=== PATIENT | male | born 1995 | race Caucasian/White ===

== ENCOUNTER → 2017-07-16 | Outpatient (CLI) | payer BC, SELFPAY | PROVIDERS: Family Provider Family Medicine; Visit Provider Family Medicine | DX: M79.672 Pain in left foot (principal); M25.572 Pain in left ankle and joints of left foot | CPT/HCPCS: 73610; 73630 ==

== ENCOUNTER → 2019-08-19 16:16 | Outpatient (CLI) | payer OTHER, BC, SELFPAY ==
--- NOTE | 2019-08-19 16:25 | XR_ITS ---
PROCEDURE: XR MULTIPLE SPINE 6+V CLINICAL INDICATION: LOW BACK PAIN Upper and lower back pain COMPARISON: No exams were available for comparison FINDINGS: AP and lateral views of the thoracic spine show minimal thoracic curvature convex right. No fracture or dislocation. No lytic or blastic change. Five views of the lumbar spine show minimal lumbar curvature convex left with mild facet arthritic changes at L5-S1. The disc spaces are well preserved. No acute fracture or dislocation. IMPRESSION: Mild thoracolumbar scoliosis with mild facet arthritic change at L5-S1 Dictated by: Servando Timmons MD 08/19/2019 17:42 Electronically signed by Servando Timmons MD in [place] 08/19/2019 17:42
== END ==
PROVIDERS: PCP Family Medicine; Visit Provider Family Medicine
DX: M54.5 Low back pain (principal); M54.6 Pain in thoracic spine
CPT/HCPCS: 72084

== ENCOUNTER → 2021-06-26 16:53 | Outpatient (CLI) | payer OTHER, SELFPAY | PROVIDERS: Visit Provider Nurse Practitioner | DX: U07.1 COVID-19 (principal) | CPT/HCPCS: C9803; U0003; U0005 ==

== ENCOUNTER 2021-08-23 15:04 | Emergency (ER) | payer OTHER, SELFPAY ==
--- NOTE | 2021-08-23 15:10 | XR_ITS ---
PROCEDURE INFORMATION: Exam: XR Left Wrist Exam date and time: 08/23/2021 3:10 PM Age: 26 years old Clinical indication: Finger(s); Left; Patient HX: Lt thum pain TECHNIQUE: Imaging protocol: XR Left wrist. Views: 3 or more views. COMPARISON: No relevant prior studies available. FINDINGS: Bones/joints: The distal radius and ulna are intact and normally aligned. No carpal fracture is seen. Carpal alignment is normal. No inflammatory erosions are seen. The visualized metacarpals are intact. Soft tissues: There are no abnormal soft tissue calcifications. Soft tissue swelling is noted. IMPRESSION: No acute radiographic abnormality of the wrist.
--- NOTE | 2021-08-23 15:10 | XR_ITS ---
PROCEDURE INFORMATION: Exam: XR Left Hand Exam date and time: 08/23/2021 3:10 PM Age: 26 years old Clinical indication: Finger(s) and other: Thumb; Left; Patient HX: Lt thumb pain TECHNIQUE: Imaging protocol: XR Left hand. Views: 3 or more views. COMPARISON: No relevant prior studies available. FINDINGS: Bones/joints: Alignment is normal. Carpals, metacarpals, and phalanges are intact. No fracture is visualized. No destructive osseous lesions are seen. No inflammatory osseous erosions are visualized. Soft tissues: There are no abnormal soft tissue calcifications. Soft tissue swelling at the base of the thumb. IMPRESSION: No acute radiographic abnormality of the hand.
[2021-08-23 15:19] VITALS: BP 116/56; PULSE 78; RESP 18; TEMP 36.9; O2SAT 98; BMI 19.1
--- NOTE | 2021-08-23 15:29 | HMH.EDUTC ---
[facility] [place] Disposition Clinical Impression: Crushing injury of left wrist Qualifiers: Encounter type: initial encounter Qualified Code(s): S67.32XA - Crushing injury of left wrist, initial encounter Crushing injury of left hand Qualifiers: Encounter type: initial encounter Qualified Code(s): S67.22XA - Crushing injury of left hand, initial encounter Disposition: Home, Self-Care Condition on Discharge: Good Instructions: DI for Crush Injury Additional Instructions: Rest the extremity, apply ice for 15 minutes as tolerated three or four times per day, Wear the delisa wrap for compression, Elevate the extremity as tolerated while you are resting. Take ibuprofen for pain. I sent in a prescription to your pharmacy. Follow up with Dr. Springer (orthopedics). I put in a referral but you need to call his office and schedule an appointment. Make sure you follow up, these types of injuries can be more serious than they may seem at first. If there is a hidden fracture in your wrist or hand, you could develop nerve damage and difficulty using your hand in the future. Follow up with your regular doctor. GO TO THE ER FOR ANY WORSENING SYMPTOMS Prescriptions: Ibuprofen [Ibuprofen 800mg Tablet] 800 mg PO Q8HP PRN #30 tab PRN Reason: Moderate Pain Transmission Status: Received by [facility] Referrals: Will Caal MD [Primary Care Provider] - Samuel Springer MD [Staff Physician] - Forms: Work/School Release Time of Disposition: 17:08 Medical Decision Making - Medical Records Medical records reviewed: No: I reviewed the patient's medical records. - Ricci Inquiry Pt receiving controlled substance: No Vital Signs: 08/23/21 15:19 08/23/21 17:20 Temperature 98.5 F 98.5 F Temperature Source Oral Pulse Rate 78 Pulse Rate [Left] 78 Respiratory Rate 18 18 Blood Pressure 116/56 L Blood Pressure [Right Arm] 116/56 L Blood Pressure Mean [Right Arm] 76 02 Sat by Pulse Oximetry 98 - Radiology Data #1 Image(s): Hand Image Reviewed: Yes I reviewed the patient's radiology image, Yes I have reviewed radiologist's interpretation Preliminary Findings: Normal/NAD, No Fracture Seen PROCEDURE INFORMATION: Exam: XR Left Hand Exam date and time: 08/23/2021 3:10 PM Age: 26 years old Clinical indication: Finger(s) and other: Thumb; Left; Patient HX: Lt thumb pain TECHNIQUE: Imaging protocol: XR Left hand. Views: 3 or more views. COMPARISON: No relevant prior studies available. FINDINGS: Bones/joints: Alignment is normal. Carpals, metacarpals, and phalanges are intact. No fracture is visualized. No destructive osseous lesions are seen. No inflammatory osseous erosions are visualized. Soft tissues: There are no abnormal soft tissue calcifications. Soft tissue swelling at the base of the thumb. IMPRESSION: No acute radiographic abnormality of the hand. [facility] [place] HPI - General Stated complaint: L wrist injury Time Seen by Provider: 08/23/21 15:25 Mode of Arrival: Ambulatory Source of Information: Patient Limitations: No Limitations Description of Symptoms (Recalled from Triage Doc. by RN): pt states he crushed his L hand/wrist with a tire rim. pt c/o L hand/wrist pain. HEENT Symptoms (Recalled from RN notes): No Resp Symptoms (Recalled from RN notes): No Skin Symptoms (Recalled from RN notes): No MS Symptoms (Recalled from RN notes): Yes (L hand/wrist pain) Functional Status (Recalled from RN notes): wnl - History of Present Illness Provider Complaint: He states that an approximately 50 pound rim came down on his left hand and wrist while at work today. He is having pain and swelling of his left hand and wrist that starts just above the wrist and goes to just past the mid-hand. He states that he has worsening pain when he tries to bend or straighten his wrist. He denies any other injury. - Relat
[2021-08-23 17:20] VITALS: BP 116/56; PULSE 78; RESP 18; TEMP 36.9
== END 2021-08-23 17:23 | disposition home or self-care (01) ==
PROVIDERS: Emergency Provider Nurse Practitioner Family; PCP Family Medicine
DX: S67.32XA Crushing injury of left wrist, initial encounter (principal); S67.22XA Crushing injury of left hand, initial encounter; W31.89XA Contact with other specified machinery, initial encounter; Y92.63 Factory as the place of occurrence of the external cause; Y99.0 Civilian activity done for income or pay
CPT/HCPCS: 29125; 73110; 73130; 99202; G0463

== ENCOUNTER 2022-09-10 13:23 | Emergency (ER) | payer SELFPAY ==
[2022-09-10 13:30] VITALS: BP 106/72; PULSE 121; RESP 20; TEMP 37.2; O2SAT 97
--- NOTE | 2022-09-10 14:18 | EXP.UTC ---
Discharge Plan Disposition Patient Disposition: Still a Patient Condition: Fair Prescriptions Prescriptions: No Action ibuprofen 800 MG tablet 800 mg PO Q8HP PRN (Reason: Moderate Pain) Qty: 30 0RF Referrals Follow up/Referrals: Will Caal MD [Primary Care Provider] - See instructions Clinical Impressions Clinical Impression: Abdominal pain Discharge ED Provider: David Long [facility] [place] H[place] General Stated complaint: vomiting,diarrhea,with blood Mode of Arrival: Ambulatory Source of Information: Patient Limitations: No Limitations Time Seen by Provider: 09/10/22 14:24 Description of Symptoms (Recalled from Triage Doc. by RN): PATIENT C/O VOMITING, DIARRHEA AND UPPER/LOWER ABDOMINAL PAIN THAT STARTED THIS MORNING. HE STATES THE FIRST EPISODE OF VOMITING HE HAD WAS CLEAR, BUT SINCE THEN HE DESCRIBES HIS EMESIS LOOKING AND SMELLING LIKE DIARRHEA AND ALSO NOTED BLOOD IN IT. HE STATES THE ABDOMINAL PAIN GETS WORSE WITH VOMITING. PATIENT ALSO REPORTS SOA AND CHEST TIGHTENING SINCE SATURDAY THAT STARTED AFTER THE [id number] AT HIS WORK WERE EMPTIED AND CAUSED A STRONG URINE/CHEMICAL ODOR IN THE AIR. HEENT Symptoms (Recalled from RN notes): No Resp Symptoms (Recalled from RN notes): Yes Skin Symptoms (Recalled from RN notes): No MS Symptoms (Recalled from RN notes): No Functional Status (Recalled from RN notes): WNL History of Present Illness Provider Complaint: He is here with complaints of abdominal pain, n/v/d. His symptoms began yesterday evening. He states he is having upper abdominal pain. He has had multiple episodes of vomiting. He states that his vomit looks like it has stool in it. Related Data Previous Rx's Medication Instructions Recorded ibuprofen 800 mg tablet 800 mg PO Q8HP PRN Moderate Pain 08/23/21 #30 tabs Allergies Allergy/AdvReac Type Severity Reaction Status Date / Time No Known Allergies Allergy Verified 04/17/21 15:35 Worker's Comp Is this a Worker's Comp case?: No [facility] Disclaimer: The information contained in this section may have been updated after the patient was seen, as this information can be updated by other users. Medical History Asthma Atrial fibrillation Surgical History History of cardiac radiofrequency ablation Social History Smoking Status: Current every day smoker alcohol intake: current current occupational status: employed Travel in the last 8 weeks: None ROS Obtained: Yes All systems reviewed & no additional complaints except as documented Constitutional Constitutional: Denies chills, Denies fever(s) and Reports poor appetite ENT Ears, Nose, Mouth, and Throat: Denies dizziness and Denies sore throat Cardiovascular Cardiovascular: Denies dyspnea Respiratory Respiratory: Denies chest congestion, Denies cough and Denies dyspnea Gastrointestinal Gastrointestingal: Reports as per HPI Genitourinary Male Genitourinary: Denies hematuria, Denies urinary frequency, Denies urinary hesitancy, Denies urinary incontinence and Denies urinary urgency Musculoskeletal Musculoskeletal: Denies arthralgias Integumentary/Breasts Skin/Breast: Denies rash Neurologic Neurologic: Denies dizziness Physical Exam General General appearance: alert and in no apparent distress Head Head exam: atraumatic and normocephalic Eye Eye exam: Present normal appearance, PERRL and EOMI ENT ENT exam: Present normal exam, normal oropharynx, mucous membranes moist, TM's normal bilaterally and normal external ear exam Neck Neck exam: Present normal inspection, full ROM and trachea midline; Absent tenderness, meningismus or lymphadenopathy Chest Chest inspection: Present normal inspection and symmetric chest wall rise; Absent tenderness, rash or abscess Respiratory Respiratory exam: Present normal lung sounds bilate
[2022-09-10 14:29] LABS: Microscopic, Urine URINE MICROSCOPIC (MICROSCOPIC)
[2022-09-10 14:31] LABS: Appearance,Urine CLEAR (Clear); Blood, Urine Negative (Negative); Color,Urine YELLOW (Yellow); Glucose,Urine (UA) Negative (Negative); Ketones,Urine Negative (Negative); Leukocyte Esterase,Urine Negative (Negative); Nitrate,Urine Negative (Negative); PH,Urine 5.5 (5.0-8.5); Protein,Urine TRACE (Negative); Specific Gravity, Urine >= 1.030 (1.005-1.030); Urobilinogen,Urine 0.2 EU/dl (0.2)
[2022-09-10 14:35] LABS: Chloride 107 mmol/L (98-107); Potassium 4.2 mmoL/L (3.5-5.1); Sodium 141 mmol/L (136-145)
[2022-09-10 14:36] VITALS: BP 128/72; PULSE 94; RESP 17; TEMP 36.8; O2SAT 96
[2022-09-10 14:38] LABS: Alanine Aminotransferase 19 U/L (12-78); Albumin Level 4.9 g/dl (3.5-5.0); Albumin/Globulin Ratio 1.4 (1.1-1.8); Alkaline Phosphatase 55 U/L (38-126); Anion Gap 13.2 mEq/L (5-15); Aspartate Amino Transferase 25 U/L (17-59); Bilirubin,Total 0.8 mg/dl (0.2-1.3); Blood Urea Nitrogen 20 mg/dl (9-20); Calcium 9.3 mg/dl (8.4-10.2); Carbon Dioxide 25 mmol/L (22.0-30.0); Creatinine Clearance Estimated 105 mL/min (50-200); Estimated Glomerular Filt Rate 90 ml/min (>60); GFR (African American) 108 ML/MIN (>60); Globulin 3.6 g/dL (1.3-3.2); Glucose 128 mg/dl (74-100); Lipase 88 U/L (23-300); Total Protein,Serum 8.5 g/dl (6.3-8.2)
[2022-09-10 15:08] LABS: Bacteria,Urine Trace /lpf; Bilirubin,Urine Negative (Negative); Mucus,Urine 2+ /lpf; Squamous Epithelial Cell,Urine Occasional #/hpf (0-5)
[2022-09-10 15:11] VITALS: BP 122/79; PULSE 88; RESP 17; TEMP 36.8; O2SAT 98
--- NOTE | 2022-09-10 15:12 | HMH.EDGENADL ---
Discharge Plan Disposition Patient Disposition: Still a Patient Condition: Fair Prescriptions Prescriptions: New ondansetron 4 mg tablet,disintegrating 4 mg PO Q6H PRN (Reason: nausea and vomiting) Qty: 20 0RF Referrals Follow up/Referrals: Will Caal MD [Primary Care Provider] - See instructions Activity Restrictions/Add. Instructions Additional Instructions/Restrictions: Today had nausea vomiting diarrhea. Your dark-colored vomit and blood-tinged vomit at the end of your vomiting episode is consistent with a Cande-Liriano tear and your abdominal exam was benign. I am not concerned about a surgical emergency at the moment. Specifically not concerned about a bowel obstruction. You may take [id number] loperamide as needed for diarrhea. I have sent in a prescription of Zofran for your nausea. If you have an inability to tolerate anything by mouth at home or you have worsening abdominal pain over the next 12 to 24 hours please return to the emergency department Clinical Impressions Clinical Impression: Abdominal pain, Nausea vomiting and diarrhea, Cande-Liriano tear, Abdominal pain, epigastric Instructions Patient Instructions: DI for Diarrhea and Traveler's Diarrhea -- Adult, DI for Diarrhea and Traveler's Diarrhea -- Child, DI for Nausea -- Adult, DI for Nausea -- Child Discharge ED Provider: David Long General Adult HPI General Chief complaint: Nausea/Vomiting/Diarrhea Stated complaint: vomiting,diarrhea,with blood Time Seen by Provider: 09/10/22 14:24 Mode of Arrival: Ambulatory Source of Information: Patient Limitations: No Limitations Description of Symptoms (Recalled from ER Triage Doc. by RN): 27 M presents from [facility] for n/v/d, hemoptysis, dizziness, and generalized abdominal pain/cramping. Patient reports symptoms began yesterday; however, associates some of this dizziness from working around [id number] at his job last week. History of Present Illness HPI narrative: Patient is a 27-year-old male without any significant history presenting today with nausea vomiting and diarrhea for 24 hours. Has had some lightheadedness recently but his nausea vomiting diarrhea is only going on for 24 hours. After multiple episodes of vomiting had some dark-colored emesis and some blood-tinged emesis. This did not occur at the beginning of a vomiting episode but only at the end. He had some epigastric discomfort but no significant lower abdominal discomfort. He was seen in the urgent treatment clinic and had his work-up initiated including a lipase. IV fluids and nausea medication have been given. The time I evaluated this patient he would dramatically improved stated nausea is feeling much better is also feeling better from a lightheadedness standpoint. States his abdominal pain other than some mild epigastric tenderness has improved. Still has no desire to have a bowel movement but his nausea is dramatically improved. He is been sipping on 7 up and has been p.o. challenging himself prior to my evaluation and has been tolerating p.o. without difficulty. States he feels much better Related Data Previous Rx's Medication Instructions Recorded ondansetron 4 mg disintegrating 4 mg PO Q6H PRN nausea and 09/10/22 tablet vomiting #20 tabs Allergies Allergy/AdvReac Type Severity Reaction Status Date / Time No Known Allergies Allergy Verified 04/17/21 15:35 [facility] Disclaimer: The information contained in this section may have been updated after the patient was seen, as this information can be updated by other users. Medical History Asthma Atrial fibrillation Surgical History History of cardiac radiofrequency ablation Social History Smoking Status: Current some day smoker alcohol intake: current current occupational status: employ
[2022-09-10 15:50] LABS: Basophils % 0.2 % (0.1-2.0); Eosinophils # 0.1 K/mm3 (0.0-0.4); Eosinophils % 0.4 % (0.1-12.0); Hematocrit 45.5 % (42.0-52.0); Hemoglobin 15.4 g/dL (14.1-18.0); Lymphocytes # 0.4 K/mm3 (0.7-4.5); Lymphocytes % 3.7 % (10-50); Mean Corpuscular HGB Conc 33.9 g/dL (31.8-35.4); Mean Corpuscular Hemoglobin 30.1 pg (27.0-31.2); Mean Corpuscular Volume 88.9 fl (80-94); Mean Platelet Volume 8.4 fl (7.4-10.4); Monocytes # 0.6 K/mm3 (0.1-1.0); Monocytes % 5.5 % (1.7-9.3); Neutrophils # 9.7 K/mm3 (1.8-7.8); Neutrophils % 90.2 % (37.0-80.0); Platelet Count 264 K/mm3 (142-424); Red Blood Count 5.11 M/mm3 (4.60-6.20); Red Cell Distribution Width 13.6 % (11.5-17.5); White Blood Count 10.7 K/mm3 (4.8-10.8)
[2022-09-10 16:00] LABS: MANUAL DIFFERENTIAL MANUAL DIFFERENTIAL (MANUAL DIFF)
[2022-09-10 16:18] LABS: Lymphocytes % 6 % (10-50); Monocytes % 2 % (2-9); Neutrophils % 92 % (42-76); Platelet Estimate Normal; RBC Morphology Normal; Total Cells Counted 100
== END 2022-09-10 15:19 | disposition still patient (30) ==
LOC: UTC 13:27 → ER 14:15
PROVIDERS: Student in an Organized Health Care Education/Training Program; Emergency Provider Nurse Practitioner Family; PCP Family Medicine
DX: R10.13 Epigastric pain (principal); R11.2 Nausea with vomiting, unspecified; K22.6 Gastro-esophageal laceration-hemorrhage syndrome; I48.91 Unspecified atrial fibrillation; J45.909 Unspecified asthma, uncomplicated; F17.210 Nicotine dependence, cigarettes, uncomplicated
CPT/HCPCS: 80053; 81001; 83690; 85007; 85025; 96361; 96374; 96375; 99285; J2405

== ENCOUNTER 2023-04-26 04:52 | Day surgery (SDC) | payer SELFPAY ==
[2023-04-26] VITALS (19 sets, daily range): BP systolic 101–135; BP diastolic 53–85; PULSE 55–86; RESP 12–19; TEMP 36.2–43; O2SAT 96–100; BMI 20.2
--- NOTE | 2023-04-26 05:05 | ECG_ITS ---
APPROVED REPORT Exam: Resting ECG HR:55 bpm ECG Measurements Heart Rate 55 AXES LA 148 P 15 QRSd 112 QRS 82 QT 384 T 50 QTc 372 Conclusion SINUS BRADYCARDIA POSSIBLE RIGHT VENTRICULAR CONDUCTION DELAY [RSR (QR) IN V1/V2] ST ELEVATION, PROBABLY EARLY REPOLARIZATION [ST ELEVATION WITH NORMALLY INFLECTED T-WAVE] BORDERLINE ECG UNCONFIRMED REPORT Electronically signed by : Davy Sam MD 04/27/2023 07:59:06
--- NOTE | 2023-04-26 05:13 | XR_ITS ---
PROCEDURE INFORMATION: Exam: XR Chest Exam date and time: 04/26/2023 5:42 AM Age: 28 years old Clinical indication: Pain; Radiating; Additional info: Cp, vomiting TECHNIQUE: Imaging protocol: Radiologic exam of the chest. Views: 1 view. COMPARISON: CR XR MULTIPLE SPINE 6+V 08/19/2019 4:28 PM FINDINGS: Lungs: Unremarkable. No consolidation. Pleural spaces: Unremarkable. No pleural effusion. No pneumothorax. Heart/Mediastinum: Unremarkable. No cardiomegaly. Bones/joints: There is a dextroconvex curvature of the thoracic spine. IMPRESSION: Clear lungs.
--- NOTE | 2023-04-26 05:17 | PC.NURSE ---
called and informed rad of new chest xray order.
--- NOTE | 2023-04-26 05:24 | CT_ITS ---
PROCEDURE INFORMATION: Exam: CT Abdomen And Pelvis With Contrast Exam date and time: 04/26/2023 5:43 AM Age: 28 years old Clinical indication: Abdominal pain; Epigastric; Additional info: Ruq pain, vomiting, back pain radiating around to front TECHNIQUE: Imaging protocol: Computed tomography of the abdomen and pelvis with contrast. Radiation optimization: All CT scans at this facility use at least one of these dose optimization techniques: automated exposure control; mA and/or kV adjustment per patient size (includes targeted exams where dose is matched to clinical indication); or iterative reconstruction. Contrast material: ISOVUE; Contrast volume: 75 ml; Contrast route: IV; REPORTING DATA: Count of CT and Cardiac NM exams in prior 12 months: This patient has received 0 known CTs and 0 known cardiac nuclear medicine studies in the 12 months prior to the current study. COMPARISON: CR XR CHEST PORTABLE 04/26/2023 5:42 AM FINDINGS: Liver: Normal. No mass. Gallbladder and bile ducts: Calcified stones are noted within the partially contracted gallbladder. Pancreas: Normal. No ductal dilation. Spleen: Normal. No splenomegaly. Adrenal glands: Normal. No mass. Kidneys and ureters: The kidneys enhance symmetrically and there is no evidence for hydronephrosis. Stomach and bowel: There is moderate stool noted in the colon. Appendix: No evidence of appendicitis. Intraperitoneal space: Unremarkable. No free air. No significant fluid collection. Vasculature: Unremarkable. No abdominal aortic aneurysm. Lymph nodes: Unremarkable. No enlarged lymph nodes. Urinary bladder: The urinary bladder is contracted. Reproductive: Unremarkable as visualized. Bones/joints: Unremarkable. No acute fracture. Soft tissues: Unremarkable. IMPRESSION: Cholelithiasis. Constipation.
--- NOTE | 2023-04-26 05:25 | HMH.EDGENADL ---
Discharge Plan Disposition Patient Disposition: Still a Patient Condition: Fair Clinical Impressions Clinical Impression: Abdominal pain, acute, right upper quadrant, Acute calculous cholecystitis Discharge ED Provider: Fady Santos General Adult HPI <Abelardo Van MD - Last Filed: 04/26/23 07:26> General Chief complaint: Chest Pain Stated complaint: Difficulty breathing,vomiting blood,pain in ribs Time Seen by Provider: 04/26/23 04:56 Mode of Arrival: Ambulatory Source of Information: Patient Limitations: No Limitations Description of Symptoms (Recalled from ER Triage Doc. by RN): Patient presents with the chief complaint of midsternal chest pain that is worse with breathing, radiates to bilateral flanks, and through mid-back starting at 11pm. Patient reports emesis x 2, which he describes as because of pain . Currently rates his pain at 8/10. History of Present Illness HPI narrative: 28-year-old male history of A-fib status post distant ablation, no other reported past medical history, presents with severe chest/epigastric/right upper quadrant pain since last night with associated vomiting. He reports he sees some streaks of blood in the vomit. No reported fever at home. He reports that he has had reflux in the past but his symptoms today were not improved with antiacids at home. Denies any changes in bowel function. No reported prior abdominal surgery. Related Data Home Medications Medication Instructions Recorded Confirmed No Known Home Medications 04/26/23 04/26/23 Allergies Allergy/AdvReac Type Severity Reaction Status Date / Time No Known Allergies Allergy Verified 04/17/21 15:35 PFSH <Abelardo Van MD - Last Filed: 04/26/23 07:26> [facility] Disclaimer: The information contained in this section may have been updated after the patient was seen, as this information can be updated by other users. Medical History Asthma Atrial fibrillation Surgical History History of cardiac radiofrequency ablation Social History Smoking Status: Smoker, status unknown alcohol intake: current current occupational status: employed Travel in the last 8 weeks: None <Abelardo Van MD - Last Filed: 04/26/23 07:26> ROS Obtained: Yes All systems reviewed & no additional complaints except as documented Physical Exam <Abelardo Van MD - Last Filed: 04/26/23 07:26> General General appearance: alert and in distress Head Head exam: atraumatic and normocephalic Eye Eye exam: Present normal appearance, PERRL and EOMI ENT ENT exam: Present normal oropharynx and normal external ear exam Neck Neck exam: Present normal inspection and full ROM Chest Chest inspection: Present normal inspection and symmetric chest wall rise; Absent tenderness Respiratory Respiratory exam: Present normal lung sounds bilaterally; Absent respiratory distress Cardiovascular Cardiovascular exam: Present regular rate and normal rhythm Abdominal Exam Abdominal exam: Present soft and tenderness (Epigastric, right upper quadrant); Absent distention or guarding Extremities Exam Extremities exam: Present normal inspection; Absent edema or joint swelling Back Exam Back exam: Present normal inspection; Absent tenderness Neurological Exam Neurological exam: Present alert and oriented X3; Absent motor sensory deficit Psychiatric Psychiatric exam: Present normal affect and normal mood Skin Skin exam: Present warm, dry and normal color Lymphatic Lymphatic Findings: no adenopathy Medical Decision Making <Abelardo Van MD - Last Filed: 04/26/23 07:26> Medical Records Medical records reviewed: Yes I reviewed the patient's medical records. Ricci Inquiry Pt receiving controlled substance: No Ricci was queried for this patient: No Vital Signs: 04/26/23 04:54 04/26/23 05:10 04/26/23
--- NOTE | 2023-04-26 05:26 | PC.NURSE ---
radiology in with patient.
[2023-04-26 05:31] LABS: Basophils % 0.5 % (0.1-2.0); Eosinophils # 0.1 K/mm3 (0.0-0.4); Eosinophils % 1.3 % (0.1-12.0); Hematocrit 45.1 % (42.0-52.0); Hemoglobin 14.5 g/dL (14.1-18.0); Lymphocytes # 1.8 K/mm3 (0.7-4.5); Lymphocytes % 18.3 % (10-50); Mean Corpuscular HGB Conc 32.2 g/dL (31.8-35.4); Mean Corpuscular Hemoglobin 29.9 pg (27.0-31.2); Mean Corpuscular Volume 92.8 fl (80-94); Monocytes # 0.5 K/mm3 (0.1-1.0); Monocytes % 5.2 % (1.7-9.3); Neutrophils # 7.4 K/mm3 (1.8-7.8); Neutrophils % 74.7 % (37.0-80.0); Platelet Count 249 K/mm3 (142-424); Red Blood Count 4.86 M/mm3 (4.60-6.20); Red Cell Distribution Width 12.9 % (11.5-17.5)
[2023-04-26 05:33] LABS: Chloride 103 mmol/L (98-107); Potassium 3.6 mmoL/L (3.5-5.1); Sodium 139 mmol/L (136-145)
[2023-04-26 05:35] LABS: Blood Urea Nitrogen 11 mg/dl (9-20); Creatinine Clearance Estimated 117 mL/min (50-200); Estimated Glomerular Filt Rate 100 ml/min (>60); GFR (African American) 122 ML/MIN (>60)
[2023-04-26 05:36] LABS: Alanine Aminotransferase 16 U/L (12-78); Albumin Level 4.5 g/dl (3.5-5.0); Albumin/Globulin Ratio 1.4 (1.1-1.8); Alkaline Phosphatase 53 U/L (38-126); Anion Gap 9.6 mEq/L (5-15); Aspartate Amino Transferase 24 U/L (17-59); Bilirubin,Total 0.4 mg/dl (0.2-1.3); Calcium 9.4 mg/dl (8.4-10.2); Carbon Dioxide 30 mmol/L (22.0-30.0); Globulin 3.3 g/dL (1.3-3.2); Glucose 119 mg/dl (74-100); Lipase 59 U/L (23-300); Total Protein,Serum 7.8 g/dl (6.3-8.2)
--- NOTE | 2023-04-26 06:16 | PC.NURSE ---
paged dr dubose to discuss poc
--- NOTE | 2023-04-26 06:24 | US_ITS ---
FINAL REPORT CLINICAL HISTORY: RUQ pain, n/v FINDINGS: Sonographic images of the right upper quadrant were obtained. Limited images of the pancreas are within normal limits. The liver has an unremarkable appearance. There are multiple gallstones in the gallbladder. There is mild gallbladder wall thickening measuring up to 4 mm. There is no evidence of biliary ductal dilatation.The common duct measures 4mm. Limited images of the right kidney are unremarkable. IMPRESSION: Multiple gallstones with mild gallbladder wall thickening. Reviewed, Interpreted and Dictated by Victoriano Kern III, MD Transcribed by Shauna Perez Authenticated and [facility]
--- NOTE | 2023-04-26 06:53 | EXP.SURG.CON ---
History of Present Illness *Admission Date: 04/26/23 *Reason for visit:: Chest pain *History of present illness: Patient is a 28-year-old male who presented to the emergency department after he had onset of mid substernal pain and epigastric radiating to bilateral flanks occurring approximately 11 PM on 02/23/2023. He did have reported emesis. He has a history of asthma, atrial fibrillation, cardiac radiofrequency ablation. Work-up in the emergency department revealed normal white blood cell count and differential. He has normal electrolytes and liver function test with normal lipase. He had a CT scan of the abdomen and pelvis performed which revealed findings of gallstones and constipation. Surgery was contacted at that time. He had significant ongoing symptoms refractory to narcotic and antiemetic. Recommendations were to proceed with gallbladder ultrasound to evaluate for potential sonographic acute cholecystitis. Gallbladder ultrasound reveals normal common bile duct with multiple gallstones and mild gallbladder wall thickening. Patient's symptoms persisted. [facility] Disclaimer: The information contained in this section may have been updated after the patient was seen, as this information can be updated by other users. Medical History Asthma Atrial fibrillation Surgical History History of cardiac radiofrequency ablation Social History Smoking Status: Smoker, status unknown alcohol intake: current current occupational status: employed Travel in the last 8 weeks: None Meds Home Medications and Allergies Home Medications Medication Instructions Recorded Confirmed Type No Known Home Medications 04/26/23 04/26/23 History New Prescriptions to Start Prescriptions: Allergies Allergy/AdvReac Type Severity Reaction Status Date / Time No Known Allergies Allergy Verified 04/17/21 15:35 Exam (Inpt) Vital signs and Labs for Last 24 Hours: Temp Pulse Resp BP Pulse Ox O2 Del Method 97.6 F 55 L 18 107/72 L 100 Room Air 04/26/23 04:54 04/26/23 05:10 04/26/23 04:54 04/26/23 04:54 04/26/23 04:54 04/26/23 04:54 Laboratory Results - last 24 hr 04/26/23 05:00: WBC 10.0, RBC 4.86, Hgb 14.5, Hct 45.1, MCV 92.8, MCH 29.9, MCHC 32.2, RDW 12.9, Plt Count 249, MPV 8.0, Neut % (Auto) 74.7, Lymph % (Auto) 18.3, Davie % (Auto) 5.2, Eos % (Auto) 1.3, Baso % (Auto) 0.5, Neut # (Auto) 7.4, Lymph # (Auto) 1.8, Davie # (Auto) 0.5, Eos # (Auto) 0.1, Baso # (Auto) 0.0, Sodium 139, Potassium 3.6, Chloride 103, Carbon Dioxide 30, Anion Gap 9.6, BUN 11, Creatinine 0.90, Estimated Creat Clear 117, Estimated GFR 100, Est GFR ( Amer) 122, Glucose 119 H, Calcium 9.4, Total Bilirubin 0.4, AST 24, ALT 16, Alkaline Phosphatase 53, Total Protein 7.8, Albumin 4.5, Globulin 3.3 H, Albumin/Globulin Ratio 1.4, Lipase 59 I & O for Labs for Last 24 Hours: Intake & Output 04/23/23 04/24/23 04/25/23 04/26/23 11:59 11:59 11:59 11:59 Weight 149 lb 9.6 oz Constitutional: no acute distress Comment:: Somewhat somnolent Head: Present normocephalic Respiratory: Present CTA bilaterally Cardiac: Present Reg Rate and Rhythm GI: Present soft Comments:: Tenderness in the right upper quadrant Rectal (male): Present deferred Results Labs 04/26/23 05:00 04/26/23 05:00 Labs: Laboratory Results - last 24 hr 04/26/23 05:00: WBC 10.0, RBC 4.86, Hgb 14.5, Hct 45.1, MCV 92.8, MCH 29.9, MCHC 32.2, RDW 12.9, Plt Count 249, MPV 8.0, Neut % (Auto) 74.7, Lymph % (Auto) 18.3, Davie % (Auto) 5.2, Eos % (Auto) 1.3, Baso % (Auto) 0.5, Neut # (Auto) 7.4, Lymph # (Auto) 1.8, Davie # (Auto) 0.5, Eos # (Auto) 0.1, Baso # (Auto) 0.0, Sodium 139, Potassium 3.6, Chloride 103, Carbon Dioxide 30, Anion Gap 9.6, BUN 11, Creatinine 0.90, Estimated Creat Clear 117, Est
--- NOTE | 2023-04-26 07:38 | PC.NURSE ---
Rounded on pt. Pt visitor provided with blanket. No other needs voiced. Updated on POC.
--- NOTE | 2023-04-26 08:20 | PC.NURSE ---
pt to u/s via wheelchair
--- NOTE | 2023-04-26 08:51 | PC.NURSE ---
Pt returned from u/s
--- NOTE | 2023-04-26 08:51 | PC.NURSE ---
pt return from u/s
--- NOTE | 2023-04-26 08:52 | PC.NURSE ---
Pt back to room. [employer] gave prelim to Dr. Santos.
--- NOTE | 2023-04-26 10:57 | PC.NURSE ---
Dr. Santos reports Dr. Denny states he will come down and see pt, Dr. Denny in ER previously to see pt but pt was in U/S at this time. Spoke with staff in pre-op states Dr. Denny is currently in a scope but stated to staff he would come down to see pt in ER after procedures are finished. 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 Dr. Santos to bs to speak with pt and significant other r/t POC. Pt and significant other now discussing options are supposed to let staff know if not wanting to stay for consult with Dr. Denny.
--- NOTE | 2023-04-26 11:35 | PC.NURSE ---
Dr. Denny at BS
--- NOTE | 2023-04-26 11:42 | PC.NURSE ---
Dr. Denny states he is going to try to take pt to the OR soon
--- NOTE | 2023-04-26 12:02 | PC.NURSE ---
Registration notified that pt is headed to surgery.
--- NOTE | 2023-04-26 12:55 | EXP.ANES.CKL ---
[facility] Disclaimer: The information contained in this section may have been updated after the patient was seen, as this information can be updated by other users. Medical History Asthma Atrial fibrillation Surgical History History of cardiac radiofrequency ablation Social History Smoking Status: Smoker, status unknown alcohol intake: current substance use type: denies use current occupational status: employed Travel in the last 8 weeks: None [facility] Anesthesia Checklist Patient Identification Patient Identification: Arm Band Structural Data Admitted From: Emergency Dept Planned Operative Procedure/s: Laparoscopic Cholecystectomy Consent for Planned Operative Procedure(s) Verified: Yes Verified Documents: Surgical Consent and History and Physical NPO Status Verified Time NPO: 00:00 Additional verifications Anesthesia Reactions: No Airway Assessment Mallampati Score:: Class II C-Spine Mobility Assessed: Yes TMJ Mobility Assessed: Yes Dentition: Good Dentition Neurological Assessment Level of Consciousness: Awake and Alert Anesthesia Plan Anesthesia Risk discussed: Yes Anesthesia Plan: Verified ASA Class: II Anesthesia Type: General Preoperative Comments Pre-Operative Comments: Pt very drowsy upon assessment most likely d/t morphine/phenergen given in ER. Pt's was able to answer all questions appropriately
--- NOTE | 2023-04-26 14:56 | EXP.OP.NOTE ---
Date of procedure: 04/26/23 Pre-op Diagnosis:: Cholecystitis Post-op Diagnosis:: Same Procedure performed:: Laparoscopic cholecystectomy Surgeon:: Victoriano Denny MD TOUR BUS DRIVER/GUIDE:: Roman Rose Anesthesia: MILTON Estimated blood loss (mL): 50 Clinical Note:: Patient is a 28-year-old male who presented to the emergency department after he had onset of mid substernal pain and epigastric radiating to bilateral flanks occurring approximately 11 PM on 02/23/2023. He did have reported emesis. He has a history of asthma, atrial fibrillation, cardiac radiofrequency ablation. Work-up in the emergency department revealed normal white blood cell count and differential. He has normal electrolytes and liver function test with normal lipase. He had a CT scan of the abdomen and pelvis performed which revealed findings of gallstones and constipation. Surgery was contacted at that time. He had significant ongoing symptoms refractory to narcotic and antiemetic with tenderness and pain in the right upper quadrant. Recommendations were to proceed with gallbladder ultrasound to evaluate for potential sonographic acute cholecystitis. Gallbladder ultrasound reveals normal common bile duct with multiple gallstones and mild gallbladder wall thickening. Patient's symptoms persisted and remained refractory to nonoperative management. Options were discussed with the patient. He wished to pursue cholecystectomy. Plan was made to proceed with laparoscopic with possibly open cholecystectomy. Nature and details of the proposed procedure and associated risks, including, but not limited to, bleeding, infection, anesthetic risk, damage to adjacent structures including bile ducts or bowel, were explained to the patient. He was agreeable to proceed with surgery. Operative findings:: He had a thickened gallbladder with multiple gallstones and some edema. Operative note:: Consent was obtained and patient was taken to the operating room. He was given a preoperative intravenous antibiotic. In the operating room he was placed in a supine position. General anesthesia was induced via endotracheal tube. Abdomen was prepped and draped in the standard surgical fashion. Subumbilical skin incision was made and while performing abdominal wall lift Veress needle was inserted. CO2 pneumoperitoneum was achieved to 15 mmHg. 11 mm optical trocar was inserted at the umbilicus. Intraperitoneal contents were visualized. He was positioned in reverse Trendelenburg left side down. A couple 5 mm trocars were inserted in the right upper abdomen. 10 mm trocar was inserted in the epigastrium. Liver was elevated and gallbladder was identified. Was grasped and retracted anteriorly and superiorly over the dome of the liver. The gallbladder appeared thickened with mild edema and some inflammation. Infundibulum of the gallbladder was retracted anterior laterally. Blunt dissection was carried out at the neck of the gallbladder bluntly incising the visceral peritoneum. This was incised laterally along the edge of the gallbladder using CHAMP ultrasonic harmonic roger. Blunt dissection was carried out ultimately isolating the cystic duct and cystic artery. Cystic artery was rather prominent. There were a few branching vessels. The cystic duct was isolated and multiply clipped and divided. Cystic artery, after further dissection, was carefully coagulated with CHAMP ultrasonic harmonic roger and divided. Gallbladder was dissected free from the liver in a retrograde fashion using CHAMP ultrasonic harmonic roger. Gallbladder was placed within an Endo Catch retrieval device and removed from the peritoneal cavity via the umbilical trocar site which required some sharp extension of the fascial incision for delivery. At this time there was some bleeding from the musculature of the abdominal wall at the umbilical trocar site. Pressure was held and 0 suture were placed within the fascia. Hopson blunt trocar was then inserted to
--- NOTE | 2023-04-26 14:59 | EXP.ANES.I ---
[facility] Anesthesia Record Part I Anesthesia Record I Intake, IV Amount: 1,000 Hydration: Adequate Estimated blood loss (mL): 10 Urine output (mL): 0 Blood Products used (#): none Blood Pressure: 135/73 SaO2: 96 Pulse Rate: 84 Airway Patency: Patent Respiratory Rate: 16 Temperature: 98.7 F Patient is:: Drowsy and Stable Stable to PACU at:: 14:55
[2023-04-29 14:30] VITALS: BP 117/75; PULSE 72; RESP 16; TEMP 37.1; O2SAT 96
--- NOTE | 2023-04-29 14:30 | P.PNANES_ITS ---
[facility] Anesthesia Record Part II Anesthesia Record Part II Discharge Time: 15:44 Destination: Surgical Day Care (OP Surgery) PACU nurse assessment reviewed?: Yes Patient Condition:: Good Anesthesia Complications:: None Swallowing reflex intact?: Yes Airway Patency: Patent Cyanosis?: No Blood Pressure: 117/75 SaO2: 96 Respiratory Rate: 16 Pulse Rate: 72 Temperature: 98.7 F Mental Status: Alert & Oriented Pain level:: 0 Nausea and/or vomitting:: None Intake, IV Amount: 0 Hydration: Adequate
== END 2023-04-26 16:40 | disposition home or self-care (01) ==
LOC: ER 07:40 → SDC 12:04
PROVIDERS: Emergency Medicine; Emergency Provider Emergency Medicine; PCP Family Medicine; Visit Provider Surgery
PROC: 0FT44ZZ Resection of Gallbladder, Percutaneous Endoscopic Approach (ICD-10-PCS; CPT 47562; principal; 2023-04-26 12:30)
DX: K80.12 Calculus of gallbladder with acute and chronic cholecystitis without obstruction (principal)
CPT/HCPCS: 47562; 71045; 74177; 76705; 80053; 83690; 85025; 93005; 96374; J2405; Q9967

== ENCOUNTER 2024-06-24 20:38 | Emergency (ER) | payer BC, SELFPAY ==
[2024-06-24] VITALS (7 sets, daily range): BP systolic 115–138; BP diastolic 61–80; PULSE 78–97; RESP 18–20; TEMP 36.8–36.9; O2SAT 94–99; BMI 21.7
--- NOTE | 2024-06-24 20:39 | ECG_ITS ---
APPROVED REPORT Exam: Resting ECG HR:79 bpm ECG Measurements Heart Rate 79 AXES AR 161 P 77 QRSd 102 QRS 81 QT 329 T 51 QTc 363 Conclusion SINUS RHYTHM POSSIBLE LEFT ATRIAL ENLARGEMENT [-0.1mV P-WAVE IN V1/V2] POSSIBLE RIGHT VENTRICULAR CONDUCTION DELAY [RSR (QR) IN V1/V2] Electronically signed by : LIZBETH ARIZMENDI, 06/24/2024 23:50:57
--- NOTE | 2024-06-24 20:54 | XR_ITS ---
PROCEDURE INFORMATION: Exam: XR Chest Exam date and time: 06/24/2024 8:54 PM Age: 29 years old Clinical indication: Pain; Chest pressure; Additional info: Cp vomiting TECHNIQUE: Imaging protocol: Radiologic exam of the chest. Views: 1 view. COMPARISON: CR XR CHEST PORTABLE 04/26/2023 5:42 AM FINDINGS: Lungs: Unremarkable. No consolidation. Pleural spaces: Unremarkable. No pleural effusion. No pneumothorax. Heart/Mediastinum: Unremarkable. No cardiomegaly. Bones/joints: Unremarkable. IMPRESSION: No acute findings.
--- NOTE | 2024-06-24 20:56 | PC.NURSE ---
xray done at bedside
[2024-06-24] MEDS: KETOROLAC 30MG/ML VIAL 15 MG IV (20:59)
[2024-06-24 21:13] LABS: Albumin Level 4.9 g/dl (3.5-5.0); Basophils # 0.1 K/mm3 (0-0.2); Basophils % 1.8 % (0.1-2.0); Chloride 106 mmol/L (98-107); Eosinophils # 0.2 K/mm3 (0.0-0.4); Eosinophils % 2.3 % (0.1-12.0); Hematocrit 49.5 % (42.0-52.0); Hemoglobin 16.5 g/dL (14.1-18.0); Lymphocytes # 0.9 K/mm3 (0.7-4.5); Lymphocytes % 12.1 % (10-50); Mean Corpuscular HGB Conc 33.4 g/dL (31.8-35.4); Mean Corpuscular Hemoglobin 30.7 pg (27.0-31.2); Mean Corpuscular Volume 91.9 fl (80-94); Mean Platelet Volume 7.4 fl (7.4-10.4); Monocytes # 0.5 K/mm3 (0.1-1.0); Monocytes % 6.5 % (1.7-9.3); Neutrophils % 77.3 % (37.0-80.0); Platelet Count 238 K/mm3 (142-424); Red Blood Count 5.39 M/mm3 (4.60-6.20); Red Cell Distribution Width 13.1 % (11.5-17.5); White Blood Count 7.8 K/mm3 (4.8-10.8)
[2024-06-24 21:14] LABS: Potassium 4.1 mmoL/L (3.5-5.1); Sodium 141 mmol/L (136-145)
--- NOTE | 2024-06-24 21:15 | ED_ITS ---
Discharge Plan Disposition Patient Disposition: Home, Self-Care Prescriptions Prescriptions: New ondansetron 4 mg tablet,disintegrating 4 mg PO Q6H PRN (Reason: nausea and vomiting) Qty: 10 0RF Referrals Follow up/Referrals: Will Caal MD [Primary Care Provider] - See instructions Activity Restrictions/Add. Instructions Additional Instructions/Restrictions: Call your family doctor to establish care for this visit to the emergency department and schedule follow-up within 48 hours to ensure improvement. If you have any worsening of your condition or any other concerning signs or symptoms, return to the emergency department or your primary care doctor for further evaluation. Clinical Impressions Clinical Impression: Nausea vomiting and diarrhea Print Language Print Language: Bulgarian Discharge ED Provider: Byron Moreno General Chief Complaint: Chest Pain Stated Complaint: chest pain Time Seen by Provider: 06/24/24 20:42 Mode of Arrival: Ambulatory Source of Information: Patient Limitations: No Limitations Description of Symptoms (Recalled from ER Triage Doc. by RN): Patient reports CP, SOA, N/V/D since 330pm today. Has taken zofran and an antidiarrhea medication. Desribes CP as dull ache and 5/10 pain. States it is substernal. History of Present Illness HPI narrative: Please note that above description of symptoms, in this electronic medical record under categorization of recalled from ER triage doctor by RN are reflective of an initial nursing assessment, however, is not reflective of my full history and physical exam that was personally taken and clarified. Consequentially, this preceding description of symptoms, which may include the patient's categorized chief complaint in the EMR, do not reflect my personal clinical impression, and the ultimate description of history of present illness and patient stated complaints should be deferred to this section of the note. Unless stated otherwise or congruent with this section of the note, additional signs, symptoms, or incongruence should be interpreted as inaccurate with my clinical impression. Related Data Previous Rx's ?Medication ?Instructions ?Recorded ondansetron 4 mg disintegrating 4 mg PO Q6H PRN nausea and 06/24/24 tablet vomiting #10 tabs Allergies Allergy/AdvReac Type Severity Reaction Status Date / Time No Known Allergies Allergy Verified 05/30/23 10:55 [facility] Disclaimer: The information contained in this section may have been updated after the patient was seen, as this information can be updated by other users. Medical History Asthma Atrial fibrillation Surgical History History of cardiac radiofrequency ablation History of laparoscopic cholecystectomy Social History Smoking Status: Never smoker alcohol intake: current alcohol intake frequency: a few times a month substance use type: denies use current occupational status: employed Travel in the last 8 weeks: None Other Medical History Have you received the Pneumonia Vaccine: No ROS Obtained: Yes All systems reviewed & no additional complaints except as documented Physical Exam General General appearance: alert and in no apparent distress Neck Neck exam: Present trachea midline Chest Chest inspection: Present normal inspection and symmetric chest wall rise Respiratory Respiratory exam: Present normal lung sounds bilaterally; Absent respiratory distress, wheezes, stridor, accessory muscle use or prolonged expiratory phase Cardiovascular Cardiovascular exam: Present regular rate, normal rhythm and other (Pulses equal and symmetric in upper and lower extremities) Extremities Exam Extremities exam: Absent edema Neurological Exam Neurological exam: Present alert, oriented X3 and CN II-XII intact Skin Skin exam: Present warm and dry; Absent cyanosis, diaphoresis or pallor HEART Score HEART Score HEART Score assessment performed?: Yes HEART Score: 0 Critical Care Critical Care Time Critical Care Time: No Medical Decision Making Medical Records Medical records reviewed: Yes I reviewed the patient's medical records. Ricci Inquiry Pt receiving controlled substance: No Ricci was queried for this patient: No Vital Signs Vital Signs: 06/24/24 20:38 06/24/24 20:46 06/24/24 21:00 Temperature 98.4 F Temperature Source Oral Pulse Rate 89 97 H Pulse Rate [Right Radial] 89 Respiratory Rate 18 Blood Pressure 138/61 Blood Pressure [Right Arm] 119/80 Blood Pressure Mean [Right Arm] 93 Blood Pressure Source [Right Arm] Automatic Cuff Blood Pressure Position [Right Arm] Supine 02 Sat by Pulse Oximetry 99 95 Oxygen Delivery Method Room Air 06/24/24 21:30 06/24/24 22:15 06/24/24 22:30 Temperature Temperature Source Pulse Rate 79 89 89 Pulse Rate [Right Radial] Respiratory Rate Blood Pressure 115/70 115/67 124/75 Blood Pressure [Right Arm] Blood Pressure Mean [Right Arm] Blood Pressure Source [Right Arm] Blood Pressure Position [Right Arm] 02 Sat by Pulse Oximetry 94 L 96 95 Oxygen Delivery Method Lab Data Labs: Lab Results 06/24/24 20:40: WBC 7.8, RBC 5.39, Hgb 16.5, Hct 49.5, MCV 91.9, MCH 30.7, MCHC 33.4, RDW 13.1, Plt Count 238, MPV 7.4, Neut % (Auto) 77.3, Lymph % (Auto) 12.1, Hill % (Auto) 6.5, Eos % (Auto) 2.3, Baso % (Auto) 1.8, Neut # (Auto) 6.0, Lymph # (Auto) 0.9, Hill # (Auto) 0.5, Eos # (Auto) 0.2, Baso # (Auto) 0.1, APTT 27.1, Sodium 141, Potassium 4.1, Chloride 106, Carbon Dioxide 28, Anion Gap 11.1, BUN 17, Creatinine 1.10, Estimated Creat Clear 102, Estimated GFR 79, Est GFR ( Amer) 96, Glucose 112 H, Calcium 9.6, Magnesium 2.1, Total Bilirubin 0.7, AST 36, ALT 20, Alkaline Phosphatase 53, Troponin I < 0.01, Total Protein 8.0, Albumin 4.9, Globulin 3.1, Albumin/Globulin Ratio 1.6, Lipase 64 06/24/24 20:40 06/24/24 20:40 Response Orders (Tests/Meds): ED MEDICATIONS Discontinued Medications Generic Name Dose Route Start Last Admin Trade Name Mikeq PRN Reason Stop Dose Admin Ketorolac Tromethamine 15 mg 06/24/24 20:54 06/24/24 20:59 Ketorolac 30mg/Ml Vial IV 06/24/24 20:55 15 mg ONCE ONE Administration ORDERS Category Date Time Status XR chest portable Stat Exams 06/24/24 20:54 Completed Complete Blood Count Auto Diff Stat Lab 06/24/24 20:40 Completed Comprehensive Metabolic Panel Stat Lab 06/24/24 20:40 Completed Lipase Stat Lab 06/24/24 20:40 Completed Magnesium Stat Lab 06/24/24 20:40 Completed PTT [Activated Partial Thrombo Time] Stat Lab 06/24/24 20:40 Completed Troponin I Q3H Lab 06/24/24 23:55 Ordered Troponin I Q3H Lab 06/25/24 02:55 Ordered Troponin I Stat Lab 06/24/24 20:40 Completed MDM Narrative Medical Decision Narrative: 29-year-old male history of SVT status post ablation presenting with palpitations, vomiting, diarrhea. Patient states he is had vomiting and diarrhea for couple of days. Nonbloody, nonbilious, no cough, fevers, chills. States that he was at work, started feeling lightheaded, vomiting and diarrhea. Intermittently having substernal chest pain that do not radiate. No shortness of breath, diaphoresis, or any other associated symptoms. Was given Zofran and antidiarrheal at work, EKG was normal reportedly at work. Came to the emergency department for further evaluation. History was obtained via conversation with patient and significant other. On arrival, patient hemodynamically stable, alert, oriented x4, appropriate, GCS 15, moving all extremities spontaneously, pupils equal and reactive to light. Full physical exam performed and significant for well-appearing male no acute distress. Cardiac exam with no murmurs gallops or rubs. Pulses equal and symmetric. No lower extremity edema. Abdomen is soft, nontender, nondistended.. Differential includes gastritis, gastroenteritis, palpitations, thyroid abnormality, endocrinologic abnormality, ACS, AR less likely, among other. Patient was given Toradol for symptomatic management and correction of underlying abnormalities. Patient placed on continuous cardiac monitoring and continuous pulse ox with initial blood pressure 119/80, heart rate 89, saturation 99% on room. Independent interpretation of EKG shows sinus rhythm [address] or T wave changes concerning for acute schema. TX 161, QRS 102, QTc 363. Normal axis. Workup independently interpreted and significant for nonactionable CBC or chemistry, negative troponin, negative lipase. Chest x-ray without acute cardiopulmonary airspace disease on independent interpretation. See radiology read for full review of final results. Heart score 0. On reevaluation, patient resting comfortably, no acute complaint. Given patient presentation, workup, history, this most likely represents gastroenteritis. Because patient at baseline without signs or symptoms of clinical decompensation, deemed appropriate for discharge. Results were relayed to patient who voiced understanding and were agreeable to outpatient management and follow up. I discussed my clinical impression with patient and answered all questions. At this time, the evidence for any other entities in the differential is insufficient to warrant any further testing or ED observation. This was explained as well. Advisory was given that persistent or worsening symptoms require further evaluation. I confirmed the understanding of this discussion. [employer] disclaimer Much of this encounter note is an electronic maintenance man spoken language to printed text. Electronic maintenance man of the spoken language may permit errors. Although I have reviewed the note, some errors may still exist.
[2024-06-24 21:16] LABS: Alanine Aminotransferase 20 U/L (12-78); Anion Gap 11.1 mEq/L (5-15); Aspartate Amino Transferase 36 U/L (17-59); Blood Urea Nitrogen 17 mg/dl (9-20); Carbon Dioxide 28 mmol/L (22.0-30.0); Creatinine Clearance Estimated 102 mL/min (50-200); Estimated Glomerular Filt Rate 79 ml/min (>60); GFR (African American) 96 ML/MIN (>60)
[2024-06-24 21:17] LABS: Albumin/Globulin Ratio 1.6 (1.1-1.8); Alkaline Phosphatase 53 U/L (38-126); Bilirubin,Total 0.7 mg/dl (0.2-1.3); Calcium 9.6 mg/dl (8.4-10.2); Globulin 3.1 g/dL (1.3-3.2); Glucose 112 mg/dl (74-100); Lipase 64 U/L (23-300); Magnesium 2.1 mg/dl (1.6-2.3)
[2024-06-24 21:20] LABS: Activated Partial Thrombo Time 27.1 seconds (22.8-30.6)
[2024-06-24 21:31] LABS: Troponin I < 0.01 ng/ml (0.00-0.034)
[2024-06-24] MEDS: ONDANSETRON 4MG/2ML VIAL 4 MG IV (22:44)
--- NOTE | 2024-06-25 08:52 | PC.NURSE ---
pt called requesting work note. 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
== END 2024-06-24 22:49 | disposition home or self-care (01) ==
PROVIDERS: Emergency Provider Emergency Medicine; PCP Family Medicine
DX: R07.9 Chest pain, unspecified (principal); R06.02 Shortness of breath; R11.2 Nausea with vomiting, unspecified; R19.7 Diarrhea, unspecified
CPT/HCPCS: 71045; 80053; 83690; 83735; 84484; 85025; 85730; 93005; 96374; 99284; J1885; J2405

== ENCOUNTER 2024-10-20 11:31 | Outpatient (CLI) | payer BC, SELFPAY ==
--- NOTE | 2024-10-20 11:36 | XR_ITS ---
FINAL REPORT CLINICAL HISTORY: Inflammation of the pleura COMPARISON: 06/24/2024 FINDINGS: 2 views of the chest were obtained. No acute pulmonary density is evident. There is no evidence of effusion or other pleural disease. The mediastinum has a normal appearance. The cardiac silhouette is unremarkable. IMPRESSION: Unremarkable chest exam. Reviewed, Interpreted and Dictated by Blake Hammer MD Transcribed by Denita Ragland Authenticated and [facility]
--- NOTE | 2024-10-20 12:12 | CT_ITS ---
FINAL REPORT TECHNIQUE: Axial imaging of the head was obtained without contrast. This study was performed with techniques to keep radiation doses as low as reasonably achievable, (ALARA). Individualized dose reduction techniques using automated exposure control or adjustment of mA and/or kV according to the patient's size were employed. CLINICAL HISTORY: HEADACHES COMPARISON: None FINDINGS: No abnormal density is seen. Ventricles are normal. There is no hemorrhage. No mass effect is seen. Bone windows show no evidence of fracture. IMPRESSION: No acute findings. Reviewed, Interpreted and Dictated by Blake Hammer MD Transcribed by Denita Ragland Authenticated and [facility]
== END 2024-10-20 23:59 | disposition home or self-care (01) ==
PROVIDERS: PCP Family Medicine; Visit Provider Family Medicine
DX: R09.1 Pleurisy (principal); G44.89 Other headache syndrome
CPT/HCPCS: 70450; 71046

== ENCOUNTER 2024-10-30 14:50 | Outpatient (CLI) | payer BC, SELFPAY ==
--- OUTSIDE RECORDS SUMMARY | 2024-10-30 14:52 | XMS_ITS | Data Portability ---
Author Organization [facility] RADHA Santiago [facility] Address [address] [facility] [address] [place] [address] Assessment No assessment recorded. Plan of Treatment Reminders Order Date Submit Date Provider Last Modified By Organization Details Last Modified Time Details Appointments None record ed. Lab None record ed. Referral None record ed. Procedures None record ed. Surgeries None record ed. Imaging None record ed. Medication Orders None record ed. Patient TargetsNo targets recorded. Patient Instructions Encounter Date Encounter Id Patient Instructions Last Modified By Organization Details Last Modified Time 03/13/2019 [id number] eating healthy foods: care instructions [id number] Not available 01/25/2022 03:49:04 Reason for Referral None Reported. Problems Name Problem SNOMED Code Status Onset Date Resolution Date Notes Provider Name and Address Organization Details Recorded Time Low back pain 989207414 Active 016 From Automated Load;Provi jac: Robert Houston; atus: Active Not Available [facility] 7 03:40:03 Problem Notes None recorded. Medical Equipment None Reported. Allergies No known drug allergies Medications Name Sig Start Date Stop Date Status Note LastModified by Organization Details LastModified Time Ritalin LA 30 mg capsule,e xtended release Take 1 capsule every day by oral route. active Not Available Not Available No t Available Vitals Date Recorded Body height Body mass index (BMI) Body weight Provider Name and Address Organization Details Last Updated DateTime 03/13/2019 182.88 cm 20.3 kg/m2 23656.86 g Isabella Peterson [facility] 03/13/2019 09:43:09 Social History Question Answer Notes LastModified by Organizat ion Details LastModified Time Tobacco Smoking Status Current Every Day Smoker Isabella Peterson [facility] 03/13/2019 09:44:16 What Is Your Level Of Alcohol Consumption? 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 Right Information not available 03/13/2019 Marital Status Single Informatio n not available 03/13/2019 How Much Tobacco Do You Smoke? 1.5 PPD Information not available 03/13/2019 Do You Use Any Illicit Or Recreational Drugs? No Information not available 03/13/2019 How Many Years Have You Smoked Tobacco? 8 Information not available 03/13/2019 Sex: Unknown Functional Status None recorded. Mental Status None recorded. Family History Relationship Description Onset Age of this Age Resolved Age Notes LastModified by Organization Details LastModified Time Father No current problems or disability Not available 03/13 09:43:57 Mother No current problems or disability Not available 03/13 09:43:57 Medical History Condition Response Other Y Heart Conditions Past Encounters Encounter ID Performer Location Encounter Start Date Encounter Closed Date Diagnosis/Indication Diagnosis SNOMED-CT Code Diagnosis ICD10 Code Diagnosis Note [id number] [facility] [address] [place] [address] 03/13/2019 09:19:20 03/13/2019 10:28:27 Ganglion cyst of the right dorsal wrist 3255277047 [id number] M67.431 He states that It has gotten a little smaller. This defines it as a ganglion cyst rather than any other mass. Recommend surgical management if symptoms warrant, otherwise observatio n is fine. He understand s and will contact me if he wishes to schedule. Health Concerns Section Related Observation LastModified by Organization Detai ls LastModified Time None Recorded Concern Status LastModified by Organization Details LastModified Time None Recorded Advance Directives Directive None Recorded Payers Encounter Date Sequence Insurance Name Policy Number Policy Jaramillo Covered Member ID Jaramillo Member ID Guarantor Name 03/13/2019 1 [employer]-[place]: DINESH READ OF [place] [id number] Aundrea Cosme [id number] Dread Cosme Notes Date Note Type Note Provider Name and Address Organization Details Recorded Time 03/13/2019 text/html Hand SurgeryRepo rted bypatient.Hand Dominance:right Location:right Severity:pain level 6/10; after working all day Duration:date of injury: 0 Previous Surgery:none Work Related:no 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
[2024-10-30 15:55] VITALS: PULSE 78; PULSE 82
[2024-10-30] MEDS: ALBUTEROL 0.083% 2.5 MG/3 ML NEB IH (15:55)
== END 2024-10-30 23:59 | disposition home or self-care (01) ==
LOC: RT 14:51
PROVIDERS: PCP Family Medicine; Visit Provider Family Medicine
DX: R06.02 Shortness of breath (principal)
CPT/HCPCS: 94060; 94640; 94726; 94729

== ENCOUNTER 2024-12-07 10:42 | Outpatient (CLI) | payer BC, SELFPAY ==
[2024-12-07 11:47] LABS: Basophils % 0.7 % (0.1-2.0); Eosinophils # 0.1 Kmm3 (0.0-0.4); Eosinophils % 2.9 % (0.1-12.0); Hematocrit 41.4 % (42.0-52.0); Hemoglobin 13.5 g/dL (14.1-18.0); Immature Granulocytes # 0.01 10^3uL; Immature Granulocytes % 0.2 %; Lymphocytes # 1.7 K/mm3 (0.7-4.5); Mean Corpuscular HGB Conc 32.6 g/dL (31.8-35.4); Mean Corpuscular Hemoglobin 29.7 pg (27.0-31.2); Mean Corpuscular Volume 91.2 fl (80-94); Mean Platelet Volume 9.5 fl (7.4-10.4); Monocytes # 0.4 K/mm3 (0.1-1.0); Monocytes % 9.4 % (1.7-9.3); Neutrophils # 2.2 K/mm3 (1.8-7.8); Neutrophils % 49.8 % (37.0-80.0); Nucleated Red Blood Cells # 0 10^3/uL; Nucleated Red Blood Cells % 0 %; Platelet Count 230 K/mm3 (142-424); Red Blood Count 4.54 M/mm3 (4.60-6.20); Red Cell Distribution Width 12.9 % (11.5-17.5); Red Cell Distribution Width-SD 42.5 fL; White Blood Count 4.5 K/mm3 (4.8-10.8)
[2024-12-07 12:04] LABS: Alanine Aminotransferase 14 U/L (12-78); Alkaline Phosphatase 46 U/L (38-126); Anion Gap 9.2 mEq/L (5-15); Aspartate Amino Transferase 23 U/L (17-59); Bilirubin,Direct 0.1 mg/dl (0.0-0.4); Bilirubin,Indirect 0.6 mg/dL (0.0-0.9); Bilirubin,Total 0.7 mg/dl (0.2-1.3); Bilirubin,Unconjugated 0.6 mg/dL (0.0-1.1); Blood Urea Nitrogen 15 mg/dl (9-20); Calcium 9.7 mg/dl (8.4-10.2); Carbon Dioxide 30 mmol/L (22.0-30.0); Chloride 104 mmol/L (98-107); Chol/HDL Ratio 3.9 (1-3.5); Cholesterol 184 mg/dl (140-200); Estimated Glomerular Filt Rate 114 ml/min (>60); GFR (African American) 138 ML/MIN (>60); Glucose 98 mg/dl (74-100); HDL Cholesterol 47 mg/dl (40-60); Magnesium 2.1 mg/dl (1.6-2.3); Potassium 4.2 mmoL/L (3.5-5.1); Sodium 139 mmol/L (136-145); Total Protein,Serum 7.4 g/dl (6.3-8.2); Triglycerides 91 mg/dl (30-150); VLDL Cholesterol 18 mg/dL (0-40)
[2024-12-07 12:15] LABS: Direct LDL Cholesterol 106.38 mg/dL (100-129)
[2024-12-07 12:23] LABS: Free T4 (Free Thyroxine) 0.97 ng/dl (0.78-2.19)
== END 2024-12-07 23:59 | disposition home or self-care (01) ==
LOC: LAB 10:43
PROVIDERS: PCP Family Medicine; Visit Provider Nurse Practitioner
DX: R00.2 Palpitations (principal); R42 Dizziness and giddiness
CPT/HCPCS: 80048; 80061; 80076; 83735; 84439; 84443; 85025; 93270

== ENCOUNTER 2024-12-21 11:26 | Outpatient (CLI) | payer BC, SELFPAY ==
--- OUTSIDE RECORDS SUMMARY | 2024-12-21 11:28 | XMS_ITS | Data Portability ---
Author Organization [facility] RADHA Santiago [facility] Address [address] [facility] [address] [place] [address] Assessment No assessment recorded. Plan of Treatment [...] By Organization Details Last Modified Time 03/13/2019 [id number] eating healthy foods: care instructions [email or web address] [id number] Not available 01/25/2022 03:49:04 Reason for Referral None Reported. Problems Name Problem SNOMED Code Status Onset Date Resolution Date Notes Provider Name and Address Organization Details Recorded Time Low back pain 706886973 Active 016 From Automated Load;Provi jac: Robert Houston; atus: Active Not Available [facility] 7 03:40:03 Problem Notes None recorded. Medical [...] Updated DateTime 03/13/2019 182.88 cm 20.3 kg/m2 76262.86 g Isabella Peterson [facility] 03/13/2019 09:43:09 Social History Question Answer Notes LastModified by Organizat ion Details LastModified Time Tobacco Smoking Status Current Every Day Smoker Isabella Peterson [facility] 03/13/2019 09:44:16 Which Of Your Hands Is Dominant? Right Information not available 03/13/2019 Marital Status Single Informatio n not available 03/13/2019 How Much Tobacco Do You Smoke? 1.5 PPD Information not available 03/13/2019 How Many Years Have You Smoked Tobacco? 8 Information not available 03/13/2019 Sex: Unknown Functional Status Question Answer Note LastModified by Organizat ion Details LastModified Time Do you use any illicit or recreational drugs? No Information not available 03/13/2019 What is your level of alcohol consumption? 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 Family History Relationship [...] SNOMED-CT Code Diagnosis ICD10 Code Diagnosis Note [id number] EMA KAM MD [facility] [address] [place] [phone] 03/13/2019 09:19:20 03/13/2019 10:28:27 Ganglion cyst of the right dorsal wrist [id number] M67.431 He states that It has gotten [...] Recorded Advance Directives Directive None Recorded Payers Insurance Date Sequence Insurance Name Policy Number Policy Jaramillo Covered Member ID Jaramillo Member ID Guarantor Name 06/15/2020 1 [place] DINESH READ OF [place] [id number] Aundrea Cosme [id number] Dread Cosme Notes Date Note Type Note Provider Name and Address Organization Details Recorded Time 03/13/2019 text/html Hand SurgeryRepo rted bypatient.Hand Dominance:right Location:right Severity:pain level 6/10; after working all day Duration:date of injury: 0 Previous Surgery:none Work Related:no 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
[2024-12-21 12:44] LABS: C-Reactive Protein 1.9 mg/L (0-4)
[2024-12-21 12:55] LABS: T4 (Thyroxine) 8.5 ug/dl (5.53-11.0)
[2024-12-21 13:09] LABS: Thyroid Stimulating Hormone 0.91 uIU/mL (0.465-4.68)
[2024-12-22 12:14] LABS: Triiodothyronine (T3) Total 143 ng/dL (71-180)
[2024-12-22 17:34] LABS: Thyroglobulin Level <1.0 IU/mL (0.0-0.9)
== END 2024-12-21 23:59 | disposition home or self-care (01) ==
LOC: LAB 11:27
PROVIDERS: PCP Family Medicine; Visit Provider Family Medicine
DX: E03.9 Hypothyroidism, unspecified (principal); R06.09 Other forms of dyspnea
CPT/HCPCS: 36415; 84436; 84443; 84480; 86140; 86800

== ENCOUNTER 2024-12-23 08:37 | Outpatient (CLI) | payer BC, SELFPAY ==
--- NOTE | 2024-12-23 08:30 | CA_ITS ---
APPROVED REPORT EXAM: Comprehensive 2D, Doppler, and color-flow Echocardiogram Bottom Pounder Cement Shoes: Belinda Dunlap RT(R) Ht: 6 ft 0 in Wt: 166lbs BSA: 1.97 BP: 99/61 mmHg Indications: dyspnea, Atrial fibrillation, history of ablation 12 years ago. 2D Dimensions EF AP4 69.50 % GL Strain -22.4 % M-Mode Dimensions RVDd 2.10 cm (0.9-2.6) LA Diam 2.20 cm (1.9-4.0) LVDd 4.91 cm (3.5-5.7) LVDs 3.63 cm (3.5-5.7) IVSd 0.56 cm (0.6-1.1) PWd 0.53 cm (0.6-1.1) EF (Teich) 51.10% FS 26.10% EDV (Teich) 113.40 mL ESV (Teich) 55.50 mL LV Diastology E Decel Time 253 (160-240 msec) E/A Ratio 1.3 Mitral Valve MV E Max Jose. 80.0 (40-130 cm/s) MV A Velocity 60.0 (40-130 cm/s) E/A Ratio 1.34 MV PHT 74.0 ms Left Ventricle The left ventricle is normal size. The left ventricular systolic function is normal. The left ventricular ejection fraction is within the normal range. There is normal left ventricular wall thickness. There is normal LV segmental wall motion. The left ventricular diastolic function is normal. LVEF is 55%. Right Ventricle The right ventricle is normal size. The right ventricular systolic function is normal. Atria The left atrium size is normal. The right atrium size is normal. There is no Doppler evidence of interatrial shunt. Aortic Valve The aortic valve opens well. There is no aortic valvular stenosis. No aortic regurgitation is present. Mitral Valve The mitral valve is normal in structure. No evidence of mitral valve stenosis. There is no mitral valve regurgitation noted. Tricuspid Valve Tricuspid valve is grossly normal in structure and function. Trace tricuspid regurgitation. There is insufficient TR jet to estimate RVSP. Pulmonic Valve The pulmonary valve is normal in structure. Trace pulmonic regurgitation. Great Vessels The aortic root is normal in size. IVC is normal in size and collapses >50% with inspiration. Pericardium There is no pericardial effusion. Other Information Study Quality: Adequate Conclusion Normal biventricular systolic function. No significant valvular stenosis or regurgitation. Electronically signed by : Maxine Powers MD 12/30/2024 00:29:26
--- OUTSIDE RECORDS SUMMARY | 2024-12-23 08:39 | XMS_ITS | Data Portability ---
Author Organization [facility] RADHA Santiago [facility] Address [address] [facility] [address] [place] [address] Assessment No assessment recorded. Plan of Treatment [...] By Organization Details Last Modified Time 03/13/2019 [id number] eating healthy foods: care instructions [email or web address] [id number] Not available 01/25/2022 03:49:04 Reason for Referral None Reported. Problems Name Problem SNOMED Code Status Onset Date Resolution Date Notes Provider Name and Address Organization Details Recorded Time Low back pain 629203625 Active 016 From Automated Load;Provi jac: Robert Houston; atus: Active Not Available [facility] 7 03:40:03 Problem Notes None [...] Updated DateTime 03/13/2019 182.88 cm 20.3 kg/m2 72757.86 g Isabella Peterson [facility] 03/13/2019 09:43:09 Social History Question Answer Notes LastModified by Organizat ion Details LastModified Time Tobacco Smoking Status Current Every Day Smoker Isabella Peterson [facility] 03/13/2019 09:44:16 Which Of Your Hands Is [...] not available 03/13/2019 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 Information not available 03/13/2019 Mental Status None [...] SNOMED-CT Code Diagnosis ICD10 Code Diagnosis Note [id number] EMA KAM MD [facility] [address] [facility] [place] [address] 03/13/2019 09:19:20 03/13/2019 10:28:27 Ganglion cyst of the right dorsal wrist [id number] M67.431 He states that It has gotten [...] 06/15/2020 1 [place] [id number] Aundrea Cosme [id number] Dread Cosme Notes Date Note Type Note Provider Name and Address Organization Details Recorded Time 03/13/2019 text/html Hand SurgeryRepo rted bypatient.Hand Dominance:right Location:right Severity:pain level 6/10; after working all day Duration:date of injury: 0 Previous Surgery:none Work Related:no 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
== END 2024-12-23 23:59 | disposition home or self-care (01) ==
LOC: RT 08:38
PROVIDERS: PCP Family Medicine; Visit Provider Nurse Practitioner
DX: I48.91 Unspecified atrial fibrillation (principal); Z98.890 Other specified postprocedural states
CPT/HCPCS: 93306

== ENCOUNTER 2025-02-18 07:20 | Outpatient (CLI) | payer BC, SELFPAY ==
--- OUTSIDE RECORDS SUMMARY | 2024-10-30 12:15 | XMS_ITS ---
Author Organization [facility] Address 1210 [facility] [address] [place] [phone] Care Team Providers Care Insurance Claims Specialist Name Role Phone Hanny Caal Primary Care Provider Arya Cano [phone] REASON FOR VISIT Tdap Medications Medication SIG [...] Encounter Location Date Provider Diagnosis [facility] 1210 [facility] [address] [place] [phone] 10/30/2024 Arya Cano Encounter for immunization Z23 Assessments Encounter Date Diagnosis (ICD Code) Assessment Notes Treatment Notes Treatment Clinical Notes Section Notes 10/30/2024 Encounter for immunization (ICD-10 - Z23) Plan Of Treatment No Information Progress Notes * BA [place] MINDIAMMONOB:1994 (29 yo M)Acc No.[id number]:10/30/2024 Progress Notes Patient: BERE ALBA II Provider: Alysha Cano M.D. :1995 A ge:29 Y S ex:Male Date:10/30/2024 Address:[address] [place], [id number] Pcp:Hanny Caal Subjective: * Chief Complaints: * [...] Electronic signature of Giselle Cano MD on 02/18/2025 at 07:23 AM EDT Sign off status: Pending * Provider: Alysha Cano M.D. Date: 0 10/30/2024 Generated for Rafiq cheung/Jose/Bernardaitting on: 0 02/18/2025 07:23 AM EDT
--- OUTSIDE RECORDS SUMMARY | 2024-11-12 11:45 | XMS_ITS ---
Author Organization [facility] Address [facility] [facility] [address] [place] [phone] Care Team Providers Care Corn Picker Name Role Phone Hanny Caal Primary Care Provider Allergies No Known Allergies Reason For Referral Reason Dr. Sood Diagnosis 1 Palpitations (R00.2) Referral Organization [facility] Referring Provider First Name Hanny Blackwell Referring Provider Last Name Ten Referring Provider Speciality Family Pra ctice Referred Provider Cardiology, . Referred Provider Specialty Cardiovascul ar Disease General Notes Evelina Rodriguez 2024 03:21:40 PM > Dr. Sood is the patients choice for a technical project manager; faxed to [phone] Referral Priority Routine REASON FOR VISIT Discuss [...] Provider Diagnosis [place] [address] [facility] [address] [place] [phone] 11/12/2024 Hanny Caal Palpitations R00.2 a nd [...] Reason: Progress Notes * RADHA HERNANDEZ IIOB:1994 (29 yo M)Acc No.[id number]:11/12/2024 Progress Notes Patient: BERE ALBA II Provider: Hanny Caal M.D. :1995 A ge:29 Y S ex:Male Date:11/12/2024 Address:[facility] [place], [id number] Subjective: * Chief Complaints: * 1 . [...] Procedure: H ER-pain in left side 12/2012, [facility] ER-laceration right foot 09/26/2014. * [...] Temp: 98.4, BP: 90/60, HR: 76, Nurse: [facility], Ht: 73, BMI:21.13. * Examination: G [...] * Images: Billing Information: * Visit Code: 42254 Office Visit, Est Pt., Level 3. * Procedure Codes: * Electronic signature of Hanny Caal MD on 02/18/2025 at 07:23 AM EDT Sign off status: Pending * Provider: Hanny Caal M.D. Date: 0 11/12/2024 Generated for Rafiq cheung/Jose/eTransmitting on: 0 02/18/2025 07:23 AM EDT History and Physical Notes * [...]
--- OUTSIDE RECORDS SUMMARY | 2024-12-10 10:45 | XMS_ITS ---
Author Organization [facility] Address [address] [facility] [address] [place] [id number] Care Team Providers Care Animal Husbandry Teacher Name Role Phone Hanny Caal Primary Care [...] Status W/U Status Risk Notes Problem Hyperthyroidism (77449633) Hyperthyroidism (E05.90) Active confirmed Vital Signs Blood pressure systolic 100 mm Hg 12/11/19 25 Blood pressure diastolic 68 mm Hg 025 Heart Rate 80 /min 12/10/2024 Height 73 in 12/10/2024 Weight 164.6 lbs 12/10/2024 BMI 21.71 kg/m2 12/10/2024 Encounters Encounter Location Date Provider Diagnosis [facility] [address] [place] [address] [place] [id number] 12/10/2024 Hanny Caal Hyperthyroidism E05. 90 and [...] cardiology Pending Test Test Name Order Date O-F-Zngqvxlr Protein (CRP) 12/10/2024 P-Total T3 12/10/2024 P-T4 (Thyroxine) 12/10/2024 P-Thyroglobulin, Serum 12/10/2024 P-TSH 12/10/2024 Next Appt Details Follow Up: via phone to repo rt test results, Reason: Progress Notes * RADHA HERNANDEZ IIOB:1994 (29 yo M)Acc No.[id number]:12/10/2024 Progress Notes Patient: BERE ALBA II Provider: Hanny Caal M.D. :1995 A ge:29 Y S ex:Male Date:12/10/2024 Address:[address] [place] [id number] Subjective: * Chief Complaints: * 1 . [...] Procedure: H ER-pain in left side 12/2012, [facility] ER-laceration right foot 09/26/2014. * Family [...] 2. D yspnea on exertion L AB: X-Z-Zsrulaeh Protein (CRP) Notes: Keep follow-up appoint with cardiology * Follow Up: v ia phone to report test results * Images: Billing Information: * Visit Code: 64918 Office Visit, Est Pt., Level 3. * Procedure Codes: * Electronic signature of Hanny Caal MD on 02/18/2025 at 07:23 AM EDT Sign off status: Pending * Provider: Hanny Caal M.D. Date: 0 12/10/2024 Generated for Rafiq cheung/Jose/Grace on: 0 02/18/2025 07:23 AM EDT History and Physical Notes * Examination Category Sub-Category Detail Notes Category Not es General Examination Heart: RSR Lungs: clear to auscultatio n General Appearance: NAD Neck: Supple, no thyromega ly
--- OUTSIDE RECORDS SUMMARY | 2025-02-18 07:23 | XMS_ITS | Clinical Summary ---
Author Organization [facility] Address [address] [place] [phone] Phone [email or web address] Care Team Providers Care Pre Billing Specialist Name Role Phone Will Caal MD Primary Care Provider Allergies No known active allergies Medications methylphenidate LA (Ritalin LA) 30 MG 24 hr capsule Take 1 capsule every day by oral route. Active cefuroxime (CEFTIN) 250 MG tablet every 12 hours. 10/08/2024 Active Active Problems No known active problems Social History Tobacco Use Types Packs/Day Years Used Date Smoking Tobacco: Every Day E-Cigarettes Smokeless Tobacco: Former Chew Tobacco Cessation:Ready to Q uit: Not Asked; Counseling Given: Not Answered Intimate Partner Violence Answer Date R ecorded Insults You Not on file 07/06/2021 Threatens You Not on file 07/06/2021 Screams at You Not on file 07/06/2021 Physically Hurt Not on file 07/06/2021 Intimate Partner Violence Score Not on file 07/06/2021 Depression Answer Date Recorded PHQ Total Score 0 01/09/2023 Stress Answer Date Recorded Stress in your Life Not on file 05/25/2024 Dealing with Stress 3 05/25/2024 Sex and Gender Information Value Date Recorded Sex Assigned at Male 10/02/2023 3:30 PM CDT 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 Gender Identity Male 10/02/2023 3:30 PM CDT Sexual Orientation Not on file Last Filed Vital Signs Vital Sign Reading Time Taken Comments Blood Pressure 116/72 10/26/2024 4:01 PM EDT Pulse 80 10/26/2024 4:01 PM EDT Temperature 37 C (98.6 F) 10/26/2024 4:01 PM EDT Respiratory Rate 17 10/26/2024 4:01 PM EDT Oxygen Saturation 97% 10/26/2024 4:01 PM EDT Inhaled Oxygen Concentration - - Weight 72.4 kg (159 lb 11.2 oz) 02/28/2023 7:18 PM EDT Height 185.4 cm (6' 1 ) 02/28/2023 7:18 PM EDT Body Mass Index 21.07 02/28/2023 7:18 PM EDT Plan of Treatment Health Maintenance Due Date Last Done Comments Dental Cleaning/Exam 1995 HIV Screening 1995 Hepatitis C Screening 1995 Hepatitis B Immunization (2 of 3 - 3-dose series) 05/08/1996 04/10/1996 Hep B Infection Screening - Triple Screen 2013 Pneumococcal: Ped (0 to 5 Yr s) and At-Risk Member (6 to 64 Yrs) (1 of 2 - PCV) 2014 Tetanus Diphtheria and Pertu ssis Immunization (1 - Tdap) 2014 Annual Preventive Exam 07/06/2022 07/06/2021 Covid-19 Immunization (1 - 2 season) 2024 Influenza Immunization (#1) 2025 HIB Immunization Aged Out No longer e ligible based on patient's age to complete this topic HPV Immunization Aged Out No longer e ligible based on patient's age to complete this topic Hepatitis A Immunization Aged Out No longer eligible based on patient's age to complete this topic Polio Immunization Aged Out No longer eligible based on patient's age to complete this topic Varicella Immunization Aged Out No lo nger eligible based on patient's age to complete this topic Insurance OPT OUT NO COPAY NB Care Teams Pre Billing Specialist Relationship Specialty Start Date End Date Will Caal MD [address] [place] [id number] PCP - General Family Medicine 10/26/24
--- OUTSIDE RECORDS SUMMARY | 2025-02-18 07:23 | XMS_ITS | Patient Health Record ---
[facility] Address [address] [place] [id number] Care Team Providers Care Briquette Molder Name Role Phone Hanny Caal Primary Care Provider Arya Cano Unavailable [phone] Allergies No Known Allergies Results Component Value [...] - 38 plat 172 100 - 400 CBC Fingerstick (in house) Reviewed date:10/16/2024 05:18:43 [...] - 38 plat 205 100 - 400 CT Scan : Head w/o contrast Reviewed date:10/21/2024 12:35:56 PM Interpretation:Negative Performing Lab: Notes/Report: Negative CBC Fingerstick (in house) Reviewed date:10/16/2024 11:36:50 [...] - 38 plat 178 100 - 400 Pulmonary Function Complete Reviewed date:11/11/2024 04:04:15 PM Interpretation: Performing Lab: Notes/Report: LEA Reviewed date:06/25/2024 09:50:30 AM Interpretation: Performing Lab: Notes/Report: CXR Reviewed date:10/21/2024 10:23:19 AM Interpretation: Performing Lab: Notes/Report: H-TSH Reviewed date:12/27/2024 08:51:33 PM Interpretation: Performing Lab: Notes/Report: TSH 0.91 0.465-4.68 uIU/mL H-CRP Reviewed date:12/27/2024 08:51:33 PM Interpretation: Performing Lab: Notes/Report: CRP 1.9 0-4 mg/L H-T4 (Thyroxine) Reviewed date:12/27/2024 08:51:33 PM Interpretation: Performing Lab: Notes/Report: T4 8.5 5.53-11.0 ug/dl H-T3 Total Reviewed date:12/27/2024 08:51:33 PM Interpretation: Performing Lab: Notes/Report: T3T 143 71-180 ng/dL Performed at: [address] [id number] Refrigeration Lead: Jeremie Holguin PhD, Phone: [phone] THYRO Reviewed date:12/27/2024 08:51:33 PM Interpretation: Performing Lab: Notes/Report: THYRO <1.0 0.0-0.9 IU/mL Thyroglobulin Antibody measured by [employer] [place] Methodology It should be noted that the presence of thyroglobulin antibodies may not be pathogenic nor diagnostic, especially at very low levels. The assay congressional district aide has found that four percent of individuals without evidence of thyroid disease or autoimmunity will have positive TgAb levels up to 4 IU/mL. Performed at: - [facility] [id number] Refrigeration Lead: Jeremie Holguin PhD, Phone: [phone] CBC Fingerstick (in house) Reviewed date:06/26/2024 03:45:13 [...] - 38 plat 161 100 - 400 CBC Fingerstick (in house) Reviewed date:07/01/2024 05:26:27 [...] Normal Performing Lab: Notes/Report: Test performed by [facility] [address] [place] [address] , [place] [address] Rodrick Castro MD, Rn Compliance CLIA: [id number] Amylase 55 28-100 U/L P-Comprehensive Metabolic Pa francine (CMP) Reviewed date:07/02/2024 10:31:48 AM Interpretation:alt 112, ast 58 Performing Lab: Notes/Report: Test performed by [facility] [address] [place] [address] , [address], [place] [address] Rodrick Castro MD, Rn Compliance CLIA: [id number] Sodium 141 135-145 mmol/L Potassium 4.7 3.5-5.3 [...] Normal Performing Lab: Notes/Report: Test performed by [facility] [address] [place] [address] , [address], [place] [address] Rodrick Castro MD, Rn Compliance CLIA: [id number] Lipase 33.0 13.0-60.0 u/L P-Magnesium Reviewed date:07/02/2024 10:31:48 AM Interpretation: Normal Performing Lab: Notes/Report: Test performed by [facility] [address] [place] [address] , [place] [address] Rodrick Castro MD, Rn Compliance CLIA: [id number] Magnesium 2.3 1.6-2.4 mg/dL P-Phosphorus Reviewed date:07/02/2024 10:31:48 AM Interpretation: Normal Performing Lab: Notes/Report: Test performed by [facility] [address] [place] [address] , [address], [place] [address] Rodrick Castro MD, Rn Compliance CLIA: [id number] Phosphorus 2.6 2.5-4.5 mg/dL P-TSH reflex to FT4 Reviewed date:07/02/2024 10:31:48 AM Interpretation: Normal Performing Lab: Notes/Report: Test performed by [facility] [address] [place] [address] , [address], [place] [address] Rodrick Castro MD, Rn Compliance CLIA: [id number] TSH reflex to FT4 0.45 0.43-5.25 mU/L Medications Medication SIG (Take, Route, Frequency, Duration) Notes Start Date End Date Status Albuterol Sulfate HFA 108 (9 0 Base) MCG/ACT 2 puffs Inhalation Three times a day 10/27/2024 Active methylPREDNISolone 4 MG as directed Orally 025 Active Immunizations Vaccine Route Administration Date Status Comme nts Tetanus Tdap-Adacel (over 7yrs) IM Intramuscular 10/30/2024 Administered Problems Problem Type SNOMED Code ICD Code Onset Dates Problem Status W/U Status Risk Notes Problem Seasonal allergic rhinitis (630325143) Seasonal allergic rhinitis (477.9) Active confirmed Problem Scoliosis (464588102) Scoliosis NOS (737.43) Active confirmed Problem Palpitations (54549718) Palpitations (R00.2) Active confirmed Problem Hyperthyroidism (16544051) Hyperthyroidism (E05.90) Active confirmed Problem Headache (53703291) Headache syndrome (G44.89) Active confirmed Problem Attention deficit hyperactivity disorder, 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 9 [facility] [address] [facility] [address] [facility] [address] [place], [place] [id number] 07/01/2024 Arya Adak Diarrhea, unspecifie d type R19.7 and Dizziness R42 [facility] [address] [facility] [address] [place], [place] [id number] 10/05/2024 Arya Adak Gastroenteritis K52. 9 and Frequent headaches R51.9 [facility] [address] [facility] [address] [place], [place] [id number] 10/08/2024 R Rishi Ten AGE (acute gastroenteritis) K52.9 ; Acute URI J06.9 and Headache syndrome G44.89 [facility] [address] [place], [place] [id number] 10/16/2024 Arya Adak Acute URI J06.9 and BMI 20.0-20.9, adult Z68.20 [facility] [address] [place], [place] [id number] 10/20/2024 R Rishi Ten Pleurisy R09.1 and B PA 21.0-21.9, adult Z68.21 [facility] [address] [place], [place] [id number] 10/27/2024 R Rishi Ten Dyspnea R06.00 [facility] [address] [place], [place] [id number] 10/30/2024 Arya Adak Encounter for immunization Z23 [facility] [address] [place], [place] [id number] 11/12/2024 R Rishi Ten Palpitations R00.2 a nd Dyspnea on exertion R06.09 [facility] [address] [place], [place] [id number] 12/10/2024 R Rishi Ten Hyperthyroidism E05. 90 and Dyspnea on exertion R06.09 [facility] [address] [place], [place] [id number] 07/02/2024 Arya Adak [facility] [address] [place], [place] [id number] 07/06/2024 Arya Adak [facility] [address] [place], [place] [id number] 10/12/2024 R Rishi Ten [facility] [address] [place] [id number] 10/20/2024 R Rishi Ten [facility] [address] [place], [place] [id number] 10/21/2024 R Rishi Garciaeet [facility] [address] [place], [place] [id number] 11/06/2024 R Rishi Garciaeet [facility] [address] [place], [place] [id number] 11/07/2024 R Rishi Angulofleet [facility] [address] [place], [place] [id number] 12/27/2024 R Rishi Angulofleet [facility] [address] [place], [place] [id number] 01/04/2025 R Rishi Angulofleet Assessments Encounter Date Diagnosis (ICD Code) Assessment Notes Treatment Notes Treatment Clinical Notes Section Notes 07/01/2024 Dizziness (ICD-10 - R42) 07/01/2024 Diarrhea, unspecified type (ICD-10 - R19.7) 10/16/2024 Acute URI (ICD-10 - J06.9) 10/16/2024 BMI 20.0-20.9, adult (ICD-10 - Z68.20) 10/20/2024 Pleurisy (ICD-10 - R09.1) 10/20/2024 BMI 21.0-21.9, adult (ICD-10 - Z68.21) 10/30/2024 Encounter for immunization (ICD-10 - Z23) 10/27/2024 Dyspnea (ICD-10 - R06.00) Etiology of his dyspnea is unclear. His pulmonary exam is normal and his recent chest x-ray is also normal. Will start albuterol MDI and arrange for pulmonary function studies. He will remain off work until PFT is completed. 10/08/2024 Acute URI (ICD-10 - J06.9) 10/08/2024 AGE (acute gastroenteritis) (ICD-10 - K52.9) 06/26/2024 Gastroenteritis (ICD-10 - K52.9) 12/10/2024 Hyperthyroidism (ICD-10 - E05.90) Check labs to rule out hyperthyroidism . May need thyroid imaging. 11/12/2024 Palpitations (ICD-10 - R00.2) 11/12/2024 Dyspnea on exertion (ICD-10 - R06.09) Pulmonary workup for evaluation of his dyspnea including chest x-ray and pulmonary function studies have been nonrevealing. Will make referral to cardiology to rule out possible dysrhythmia or other etiologies. 10/05/2024 Gastroenteritis (ICD-10 - K52.9) fluids, rest, supportive measures, dehydration precautions discussed 10/05/2024 Frequent headaches (ICD-10 - R51.9) 12/10/2024 Dyspnea on exertion (ICD-10 - R06.09) Keep follow-up appoint with cardiology 10/08/2024 Headache syndrome (ICD-10 - G44.89) Plan Of Treatment Pending Test Test Name Order Date O-J-Zcljzpwa Protein (CRP) 12/10/2024 P-Total T3 12/10/2024 P-T4 (Thyroxine) 12/10/2024 P-Thyroglobulin, Serum 12/10/2024 P-TSH 12/10/2024 TEN-stool panel 07/01/2024 Insurance Providers Payer Name Payer Address Payer Phone Subscriber Number Group Number Insured Name Patient Relationship to Insured Coverage Start Date Coverage End Date [facility] [id number] [place] [address] [phone] [id number] BERE HERNANDEZ II Self - patient is the insured Medications Administered Medication Instructions Date of Administration Dosage Notes allergy 01/19/2005 0.5 mL wkly allergy i nj given allergy 01/30/2005 0.5 mL allergy 02/06/2005 0.5 mL allergy 02/20/2005 0.5 mL allergy 03/06/2005 0.5 mL allergy 03/13/2005 0.10 mL allergy 03/19/2005 0.25 mL allergy 04/10/2005 0.10 mL allergy 04/17/2005 .15 allergy 04/24/2005 0.1 mL allergy 05/22/2005 0.5 mL allergy 06/07/2005 0.15 mL allergy 06/18/2005 0.5 mL allergy 06/27/2005 allergy 07/25/2005 0.10 allergy 07/31/2005 0.1 mL allergy 08/07/2005 0.25 allergy 09/04/2005 0.5 mL allergy 09/11/2005 0.5 mL allergy 09/18/2005 .10CC allergy 10/25/2005 0.1 allergy 11/13/2005 allergy 12/18/2005 .o5 allergy 01/09/2006 0.1 Medical (General) History Medical History History ICD Code Allergies Asthma ADD Surgical History Surgery Date(Month/Year) Heart Ablation 2011 Cholecystectomy 04/26/2023 Hospitalization History Reason Date(Month/Year) [facility] ER-laceration right foot 09/26/2014 [facility] ER-pain in left side 12/2012
--- OUTSIDE RECORDS SUMMARY | 2025-02-18 07:23 | XMS_ITS | Clinical Summary ---
Author Organization [facility] Address [address] [facility] [address] [place] [address] Phone Care Team Providers Care Livestock Judging Coach Name Role Phone Unavailable Primary Care Provider Unavailabl e Social History Tobacco Use Types Packs/Day Years Used Date Smoking Tobacco: Never Assessed Sex and Gender Information Value Date Recorded Sex Assigned at Not on file Legal Sex Male 2:40 PM EDT Gender Identity Not on file Sexual Orientation Not on file Plan of Treatment Health Maintenance Due Date Last Done Comments Annual Wellness Exam 1998 DTaP/TDaP/Td (1 - Tdap) 2014 Hepatitis B Vaccine (1 of 3 - 19+ 3-dose series) 2014 COVID-19 Vaccine ( - 2023-2 5 season) 2024 Influenza Vaccine (#1) 2025 Meningococcal B Vaccine Aged Out No l onger eligible based on patient's age to complete this topic Pneumococcal Vaccine 0-49 Aged Out No longer eligible based on patient's age to complete this topic
[2025-02-18 08:12] VITALS: BMI 21.4
[2025-02-18 08:19] VITALS: BP 107/77; PULSE 60; RESP 18; TEMP 36.4; O2SAT 100
[2025-02-18 08:40] LABS: Chloride 102 mmol/L (98-107); Sodium 139 mmol/L (136-145)
[2025-02-18 08:41] LABS: Potassium 4.2 mmoL/L (3.5-5.1)
[2025-02-18 08:43] LABS: Anion Gap 9.2 mEq/L (5-15); Blood Urea Nitrogen 14 mg/dl (9-20); Carbon Dioxide 32 mmol/L (22.0-30.0); Creatinine Clearance Estimated 127 mL/min (50-200); Creatinine,Serum 0.90 mg/dl (0.66-1.25); Estimated Glomerular Filt Rate 100 ml/min (>60); GFR (African American) 121 ML/MIN (>60)
[2025-02-18 08:44] LABS: Calcium 9.6 mg/dl (8.4-10.2); Glucose 108 mg/dl (74-100)
[2025-02-18 09:07] VITALS: BP 125/76; PULSE 65; RESP 16; O2SAT 99
[2025-02-18] MEDS: NITROGLYCERIN 0.4MG SL TABLET SL (09:07)
[2025-02-18 09:10] VITALS: BP 107/65; PULSE 61; RESP 16; O2SAT 99
[2025-02-18 09:13] VITALS: BP 97/64; PULSE 56; RESP 18; O2SAT 100
[2025-02-18 09:22] VITALS: BP 99/51; PULSE 61; RESP 16; O2SAT 100
[2025-02-18] MEDS: IOPAMIDOL-370 (76%);100ML BOTTLE 85 ML IV (09:22)
[2025-02-18] MEDS: 0.9 % SODIUM CHLORIDE 50 ML VIAL IV (09:22)
[2025-02-18] MEDS: SODIUM CHLORIDE 0.9% 10ML SYR (RAD ONLY) 10 ML IV (09:22)
== END 2025-02-18 09:30 | disposition home or self-care (01) ==
PROVIDERS: PCP Family Medicine; Visit Provider Nurse Practitioner
DX: R00.2 Palpitations (principal); R06.09 Other forms of dyspnea; R07.89 Other chest pain
CPT/HCPCS: 75574; 80048; Q9967

== ENCOUNTER 2025-03-23 10:36 | Outpatient (CLI) | payer BC, SELFPAY ==
--- OUTSIDE RECORDS SUMMARY | 2024-10-20 06:30 | XMS_ITS ---
Author Organization [facility] Address [address] [facility] [address] [place] [id number] Care Team Providers Care Jewelry Estimator Name Role Phone Hanny Caal Primary Care Provider [phone] Allergies No Known Allergies Results Component Value [...] Provider Diagnosis [facility] [address] [facility] [address] [place] [id number] 10/20/2024 Hanny Caal Pleurisy R09.1 and BMI [...] * RADHA HERNANDEZ IIOB:1994 (30 yo M)Acc No.[id number]:10/20/2024 Progress Notes Patient: BERE ALBA II Provider: Hanny Caal M.D. :1995 A ge:29 Y S ex:Male Date:10/20/2024 Address:[facility] [address] [place] [id number] Subjective: * Chief Complaints: * 1 . [...] Procedure: H ER-pain in left side 12/2012, [facility] ER-laceration right foot 09/26/2014. * Family History: [...] leurisy - R09.1 (Primary) 2 . B [place] 21.0-21.9, adult - Z68.21 ? Plan: * Treatment: * Procedure Codes: 9 4760 [place] * Follow Up: v ia phone to report test results * Images: Billing Information: * Visit Code: 37356 Office Visit, Est Pt., Level 3. * Procedure Codes: 22668 PULSE OX. * Electronic signature of Hanny Caal MD on 03/23/2025 at 11:11 AM EDT Sign off status: Pending * Provider: Hanny Caal M.D. Date: 0 10/20/2024 Generated for Rafiq cheung/Jose/eTransmitting on: 0 03/23/2025 11:11 AM EDT History and Physical Notes * Examination Category Sub-Category Detail Notes Category Not es ENT/Respiratory Heart : RRR, normal S1 S2, no mur murs Lungs: clear to auscultatio n bilaterally. Mild tenderness to palpation over left mid anterior chest wall General Appearance: NAD. Appears comfort able Nose : normal, no lesions, nares patent
--- OUTSIDE RECORDS SUMMARY | 2024-10-27 11:00 | XMS_ITS ---
Author Organization [facility] Address [facility] [address] [place] [id number] Care Team Providers Care Dampener Operator Name Role Phone Hanny Caal Primary Care Provider [phone] Allergies No Known Allergies Results Component Value [...] Provider Diagnosis [facility] [address] [place] [address] [place] [phone] 10/27/2024 Hanny Caal Dyspnea R06.00 Assessments Encounter [...] * RADHA HERNANDEZ IIOB:1994 (30 yo M)Acc No.[id number]:10/27/2024 Progress Notes Patient: BERE ALBA II Provider: Hanny Caal M.D. :1995 A ge:29 Y S ex:Male Date:10/27/2024 Address:[address] [place] [address], [id number] Subjective: * Chief Complaints: * 1 . [...] Procedure: H ER-pain in left side 12/2012, [facility] ER-laceration right foot 09/26/2014. * Family [...] 93, O2 Sat: 97% on RA, Nurse: [facility], Ht: 73, BMI:21.11. * Examination: E NT/Respiratory: [...] * Images: Billing Information: * Visit Code: 03844 Office Visit, Est Pt., Level 3. * Procedure Codes: 01029 PULSE OX. * Electronic signature of Hanny Caal MD on 03/23/2025 at 11:11 AM EDT Sign off status: Pending * Provider: Hanny Caal M.D. Date: 0 10/27/2024 Generated for Rafiq cheung/Jose/Grace on: 0 03/23/2025 11:11 AM EDT History [...]
--- OUTSIDE RECORDS SUMMARY | 2024-10-30 12:15 | XMS_ITS ---
Author Organization [facility] Address 1210 [facility] [address] [place] [phone] Care Team Providers Care Academic Support Center Director Name Role Phone Hanny Caal Primary Care Provider Arya Cano [phone] REASON FOR VISIT Tdap Medications Medication SIG [...] Encounter Location Date Provider Diagnosis [facility] 1210 [facility] [address] [place] [phone] 10/30/2024 Arya Cano Encounter for immunization Z23 Assessments Encounter Date Diagnosis (ICD Code) Assessment Notes Treatment Notes Treatment Clinical Notes Section Notes 10/30/2024 Encounter for immunization (ICD-10 - Z23) Plan Of Treatment No Information Progress Notes * HERNANDEZ EDEL MINDIAMMONOB:1994 (30 yo M)Acc No.[id number]:10/30/2024 Progress Notes Patient: BERE ALBA II Provider: Alysha Cano M.D. :1995 A ge:29 Y S ex:Male Date:10/30/2024 Address:[address] [place], [id number] Pcp:Hanny Caal Subjective: * Chief Complaints: * [...] Electronic signature of Giselle Cano MD on 03/23/2025 at 11:12 AM EDT Sign off status: Pending * Provider: Alysha Cano M.D. Date: 0 10/30/2024 Generated for Rafiq cheung/Jose/Jacquelinesmitting on: 0 03/23/2025 11:12 AM EDT
--- OUTSIDE RECORDS SUMMARY | 2024-11-12 11:45 | XMS_ITS ---
Author Organization [facility] [facility] [address] [place] [phone] Care Team Providers Care Strategic Planner Name Role Phone Hanny Caal Primary Care Provider Allergies No Known Allergies Reason For Referral Reason Dr. Sood Diagnosis 1 Palpitations (R00.2) Referral [facility] Referring Provider First Name Hanny Blackwell Referring Provider Last Name Ten Referring Provider Speciality Family Pra ctice Referred Provider Cardiology, . Referred Provider Specialty Cardiovascul ar Disease General Notes Evelina Rodriguez 2024 03:21:40 PM > Dr. Sood is the patients choice for a law office assistant; faxed to [phone] Referral Priority Routine REASON FOR VISIT Discuss [...] Provider Diagnosis [facility] [address] [facility] [address] [place] [phone] 11/12/2024 Hanny Caal Palpitations R00.2 a nd [...] * RADHA HERNANDEZ IIOB:1994 (30 yo M)Acc No.[id number]:11/12/2024 Progress Notes Patient: BERE ALBA II Provider: Hanny Caal M.D. :1995 A ge:29 Y S ex:Male Date:11/12/2024 Address:[facility] [place], [id number] Subjective: * Chief Complaints: * 1 . [...] Procedure: H ER-pain in left side 12/2012, [facility] ER-laceration right foot 09/26/2014. * Family [...] Temp: 98.4, BP: 90/60, HR: 76, Nurse: [facility], Ht: 73, BMI:21.13. * Examination: G eneral [...] * Images: Billing Information: * Visit Code: 85852 Office Visit, Est Pt., Level 3. * Procedure Codes: * Electronic signature of Hanny Caal MD on 03/23/2025 at 11:12 AM EDT Sign off status: Pending * Provider: Hanny Caal M.D. Date: 0 11/12/2024 Generated for Rafiq cheung/Jose/eTransmitting on: 0 03/23/2025 11:12 AM EDT History and Physical Notes * Physical Examination [...]
--- OUTSIDE RECORDS SUMMARY | 2024-12-10 10:45 | XMS_ITS ---
Author Organization [facility] Address 1210 [facility] [address] [place] [phone] Care Team Providers Care Track Oiler Name Role Phone Hanny Caal Primary Care Provider [phone] Allergies No Known Allergies REASON FOR VISIT [...] Status W/U Status Risk Notes Problem Hyperthyroidism (10298792) Hyperthyroidism (E05.90) Active confirmed Vital Signs Blood pressure systolic 100 mm Hg 12/11/19 25 Blood pressure diastolic 68 mm Hg 025 Heart Rate 80 /min 12/10/2024 Height 73 in 12/10/2024 Weight 164.6 lbs 12/10/2024 BMI 21.71 kg/m2 12/10/2024 Encounters Encounter Location Date Provider Diagnosis [facility] [address] [place] [address] [place] [phone] 12/10/2024 Hanny Caal Hyperthyroidism E05. 90 and [...] cardiology Pending Test Test Name Order Date N-Z-Hmpscfrx Protein (CRP) 12/10/2024 P-Total T3 12/10/2024 P-T4 (Thyroxine) 12/10/2024 P-Thyroglobulin, Serum 12/10/2024 P-TSH 12/10/2024 Next Appt Details Follow Up: via phone to repo rt test results, Reason: Progress Notes * RADHA HERNANDEZ IIOB:1994 (30 yo M)Acc No.[id number]:12/10/2024 Progress Notes Patient: BERE ALBA II Provider: Hanny Caal M.D. :1995 A ge:29 Y S ex:Male Date:12/10/2024 Address:[address] [place] [phone] Subjective: * Chief Complaints: * 1 . [...] H ER-pain in left side 12/2012, [facility] ER-laceration right foot 09/26/2014. * Family [...] 2. D yspnea on exertion L AB: R-S-Vxvnboks Protein (CRP) Notes: Keep follow-up appoint with cardiology * Follow Up: v ia phone to report test results * Images: Billing Information: * Visit Code: 24322 Office Visit, Est Pt., Level 3. * Procedure Codes: * Electronic signature of Hanny Caal MD on 03/23/2025 at 11:11 AM EDT Sign off status: Pending * Provider: Hanny Caal M.D. Date: 0 12/10/2024 Generated for Rafiq cheung/Jose/Grace on: 0 03/23/2025 11:11 AM EDT History and Physical Notes * Examination Category Sub-Category Detail Notes Category Not es General Examination Heart: RSR Lungs: clear to auscultatio n General Appearance: NAD Neck: Supple, no thyromega ly
--- OUTSIDE RECORDS SUMMARY | 2025-02-18 11:25 | XMS_ITS | Encounter Summary ---
Author Organization Healthcare Address [address] [place] [address] Care Team Providers Care Retail Consultant Name Role Phone Unavailable Primary Care Provider Unavailabl e Encounter Details Date Type Department Care Team (Late st Contact Info) Description 02/18/2025 11:25 AM EDT Ancillary Procedure [facility] [address] [place] [id number] Dyspnea Social History Tobacco Use Types Packs/Day Years Used Date Smoking Tobacco: Never Assessed Sex and Gender Information Value Date Recorded Sex Assigned at Not on file Legal Sex Male 7:39 PM EDT Gender Identity Not on file Sexual Orientation Not on file documented as of this encounter Plan of Treatment Not on file documented as of this encounter Procedures Procedure Name Priority Date/Time Associated Diagnosis Comments CT ANGIO CARDIAC CORONARY ARTERIES Routine 02/18/2025 11:22 AM EDT Dyspnea documented in this encounter Results * CT Angio Cardiac Coronary Arteries (02/18/2025 11:22 AM EDT) Anatomical Region Laterality Modality Heart Computed Tomogra phy Impressions 02/18/2025 1:19 PM EDT 1. No coronary calcification with an Agatston score = 0 using the AJ-130 method 2. Normal coronary arteries 3. CAD-RADS 0: Management recommendations: Reassurance. Consider non-atherosclerotic causes of chest pain. 4. No significant non coronary cardiac findings in particular normal cardiac chambers, non-coronary vessels in the field of view and unremarkable pericardium. 5. Extracardiac structures in the field of view are unremarkable. CRITICAL RESULT: No. COMMUNICATION: Per this written report. Drafted by Michael Wong MD on 02/18/2025 12:27 PM Final report signed by Michael Wong MD on 02/18/2025 1:19 PM Narrative 02/18/2025 1:19 PM EDT CLINICAL INDICATION: 29 years Male Symptoms: Dyspnea TECHNIQUE: Procedure Data Image Acquisition: Images were acquired at [facility] in [place], and interpreted at [facility]. A 128-slice MDCT scanner ([employer]) was used for data acquisition. A non-contrast coronary calcium scan was initially performed. was performed. Bolus tracking in the ascending aorta with a threshold of 180HU. Immediately afterwards, ECG synchronized Cardiac CT was then performed from cardiac base to apex using retrospective gating with ECG tube current modulation. A total of 85 mL Isovue 370mg/mL contrast media was administered at 5 mL/sec followed by a saline flush using a biphasic injection protocol. A tube voltage of 120 kVp was used. The patient received the following medications prior to the Cardiac CT: 0.4mg sublingual nitroglycerin. The average heart rate at the time of acquisition was 57 bpm (53 bpm to 63 bpm) and mildly irregular. Image Reconstruction: Transaxial images were reconstructed at 0.63 mm slice thickness. Data was reviewed interactively on an advanced workstation ([employer]) capable of 2 and 3 dimensional displays in all conventional reconstruction formats including multiplanar reformations, maximum intensity projections, curved multiplanar reformations, and volume rendered reconstructions. Selected routine images displaying relevant coronary anatomy and pathology were saved and sent to PACS. Complications: None Technical Quality: Overall image quality is Good. Coronary artery opacification is Excellent Total DLP (Dose-Length Product): 1931.3mGycm. (27 mSv) Please note: The reported value represents the total of one or more individual components during the CT acquisition on this date and at this time, and as such, the same value may appear in more than one CT report depending on the interpreting/reporting physicians. COMPARISON: None. FINDINGS: -CT Coronary Calcium Scoring- LMA= 0 LAD= 0 LCX= 0 RCA= 0 Total calcium score = 0 using the AJ-130 method. There is no identifiable calcification in the aortic wall, mitral annulus/valve, pericardium, myocardium. -Coronary CT Angiography- Coronary Arteries: The coronaries have normal origin and proximal course. The coronary arterial system is right dominant. Note: Stenosis is reported as maximum percentage diameter stenosis. Stenosis grading is reported using the following scheme. Quantitative Stenosis Grading: CAD-RADS 0: 0% - No visible stenosis CAD-RADS 1: 1-24% - Minimal stenosis CAD-RADS 2: 25-49% - Mild stenosis CAD-RADS 3: 50-69% - Moderate stenosis CAD-RADS 4A: 70-99% - Severe stenosis in 1-2 vessels CAD-RADS 4B: Left main >50%, or 3 vessel >70% CAD-RADS 5: 100% - Occluded Left Main: CAD-RADS 0 The left main bifurcates into the left anterior descending artery and left circumflex artery. LAD and Diagonals: CAD-RADS 0. Large vessel gives off 3 diagonal branches and wraps the apex. No visible atherosclerotic disease LCx and Obtuse Marginals: CAD-RADS 0 Large vessel, gives off an OM, and 2 PL branches. No visible atherosclerotic disease RCA: CAD-RADS 0 Large dominant vessel gives off an RV marginal, PDA branches. No visible atherosclerotic disease Non Coronary Cardiac Findings: Normal cardiac chamber size. No pericardial thickening or calcification. Normal interatrial and interventricular septum, atrioventricular valves, ventriculo-arterial valves, pulmonary veins and imaged central veins. Central and branch pulmonary arteries in the field of view are unremarkable. Thoracic aorta and imaged thoracic aortic branches in the field of view are unremarkable. The left ventricular systolic function is visually normal. Extra Cardiac Structures: No significant findings Procedure Note Michael Wong MD - 02/18/2025 CLINICAL INDICATION: 29 years Male Symptoms: Dyspnea TECHNIQUE: Procedure Data Image Acquisition: Images were acquired at [facility] in [place], andinterpreted at [facility]. A 128-slice MDCT scanner ([employer]) was used for data acquisition. A non-contrast coronarycalcium scan was initially performed. was performed. Bolus tracking in theascending aorta with a threshold of 180HU. Immediately afterwards, ECGsynchronized Cardiac CT was then performed from cardiac base to apex usingretrospective gating with ECG tube current modulation. A total of 85 mLIsovue 370mg/mL contrast media was administered at 5 mL/sec followed by asaline flush using a biphasic injection protocol. A tube voltage of 120kVp was used. The patient received the following medications prior to the Cardiac CT:0.4mg sublingual nitroglycerin. The average heart rate at the time of acquisition was 57 bpm (53 bpm to 63bpm) and mildly irregular. Image Reconstruction: Transaxial images were reconstructed at 0.63 mm slice thickness. Data wasreviewed interactively on an advanced workstation ([employer]) capable of 2and 3 dimensional displays in all conventional reconstruction formatsincluding multiplanar reformations, maximum intensity projections, curvedmultiplanar reformations, and volume rendered reconstructions. Selectedroutine images displaying relevant coronary anatomy and pathology weresaved and sent to PACS. Complications: None Technical Quality: Overall image quality is Good. Coronary artery opacification is Excellent Total DLP (Dose-Length Product): 1931.3mGycm. (27 mSv) Please note: Thereported value represents the total of one or more individual componentsduring the CT acquisition on this date and at this time, and as such, thesame value may appear in more than one CT report depending on theinterpreting/reporting physicians. COMPARISON: None. FINDINGS: -CT Coronary Calcium Scoring- LMA= 0 LAD= 0 LCX= 0 RCA= 0 Total calcium score = 0 using the AJ-130 method. There is no identifiable calcification in the aortic wall, mitralannulus/valve, pericardium, myocardium. -Coronary CT Angiography- Coronary Arteries: The coronaries have normal origin and proximal course. The coronaryarterial system is right dominant. Note: Stenosis is reported as maximum percentage diameter stenosis.Stenosis grading is reported using the following scheme. Quantitative Stenosis Grading: CAD-RADS 0: 0% - No visible stenosis CAD-RADS 1: 1-24% - Minimal stenosis CAD-RADS 2: 25-49% - Mild stenosis CAD-RADS 3: 50-69% - Moderate stenosis CAD-RADS 4A: 70-99% - Severe stenosis in 1-2 vessels CAD-RADS 4B: Left main >50%, or 3 vessel >70% CAD-RADS 5: 100% - Occluded Left Main: CAD-RADS 0 The left main bifurcates into the left anteriordescending artery and left circumflex artery. LAD and Diagonals: CAD-RADS 0. Large vessel gives off 3 diagonal branchesand wraps the apex. No visible atherosclerotic disease LCx and Obtuse Marginals: CAD-RADS 0 Large vessel, gives off an OM, and 2PL branches. No visible atherosclerotic disease RCA: CAD-RADS 0 Large dominant vessel gives off an RV marginal, PDAbranches. No visible atherosclerotic disease Non Coronary Cardiac Findings: Normal cardiac chamber size. No pericardial thickening or calcification. Normal interatrial and interventricular septum, atrioventricular valves,ventriculo-arterial valves, pulmonary veins and imaged central veins. Central and branch pulmonary arteries in the field of view areunremarkable. Thoracic aorta and imaged thoracic aortic branches in the field of vieware unremarkable. The left ventricular systolic function is visually normal. Extra Cardiac Structures: No significant findings IMPRESSION: 1. No coronary calcification with an Agatston score = 0 using the AJ-130method 2. Normal coronary arteries 3. CAD-RADS 0: Management recommendations: Reassurance. Considernon- atherosclerotic causes of chest pain. 4. No significant non coronary cardiac findings in particular normalcardiac chambers, non-coronary vessels in the field of view andunremarkable pericardium. 5. Extracardiac structures in the field of view are unremarkable. CRITICAL RESULT: No. COMMUNICATION: Per this written report. Drafted by Michael Wong MD on 02/18/2025 12:27 PM Final report signed by Michael Wong MD on 02/18/2025 1:19 PM Monik Mann APRN IMG CT PROCEDURES Laurie l Result documented in this encounter Visit Diagnoses Diagnosis Dyspnea Other dyspnea and respiratory abnormality documented in this encounter
--- NOTE | 2025-03-23 10:30 | MR_ITS ---
APPROVED REPORT Under Seal Operator: CLINICAL INDICATION Dyspnea, cardiomyopathy evaluation TECHNIQUE Image Acquisition: Cardiac magnetic resonance (CMR) was performed on Siemens Espree MRI 1.5T scanner. Software platform sequences were performed using the Siemens Wappwolf MR B19 platform. A set of three-plane, low-resolution, large emwyq-fw-efyx localizers were initially acquired. Then axial, coronal, sagittal TrueFISP, as well as axial HASTE images, were obtained. These were followed by gated TrueFISP breathold cinematic sequences obtained in the short axis with 8 mm slices and 2 mm gaps, 2-chamber (vertical long axis), 3-chamber, 4-chamber (horizontal long axis). A bolus of contrast was injected intravenously with first-pass sequences obtained in the short axis and four-chamber planes. After approximately 10 minutes, a TI sewage screen operator sequence was performed to determine the optimal TI time. Using the optimized TI time, delayed contrast enhancement segmented inversion???recovery TurboFLASH sequences were obtained in the short axis, 2-chamber, 3-chamber, and 4-chamber projections. 2D-velocity phase mapping was performed. Functional parameters were calculated by offline analysis on an independent workstation ([employer] Platform, [employer] Bend [employer]). Contrast: ProHance??? (Gadoteridol) FINDINGS MORPHOLOGY AND FUNCTION Left ventricle: The left ventricle is normal in size. The indexed left ventricular end-diastolic volume (LVEDVi) is 82 ml/m2 (reference range 57-105 ml/m2 in males, 56-96 ml/m2 in females). Normal left ventricular systolic function is present. There is normal left ventricular wall thickness. There are no regional wall motion abnormalities noted. LVEF is calculated at 58.3% (reference range 57-77%). Right ventricle: The right ventricle is normal in size. The indexed right ventricular end-diastolic volume (RVEDVi) is 85 ml/m2 (reference range 61-121 ml/m2 in males, 48-112 ml/m2 in females). Normal right ventricular systolic function is present. RVEF is calculated at 54.0% (reference range 52-72% in males, 51-71% in females). Atria: The left atrium is normal in size. The maximum indexed left atrial volume is 28 ml/m2 (reference range 26-52 ml/m2 in males, 27-53 ml/m2 in females). The right atrium is normal in size. The maximum indexed right atrial volume is 23 ml/m2 (reference range 18-90 ml/m2). Aorta: The diameter of the aortic annulus is normal, measuring 23 mm (coronal view reference range 21-30 mm in males, 19-27 mm in females). The diameter of the aortic sinus is normal, measuring 29 mm (coronal view reference range 25-42 mm in males, 24-36 mm in females). The diameter of the sinotubular junction is normal, measuring 24 mm (coronal view reference range 18-32 mm in males, 18-28 mm in females). The diameters of the ascending and descending thoracic aorta are normal. Main pulmonary artery: The main pulmonary artery diameter is normal. Pericardium: The pericardial thickness is normal. The pericardial thickness measures 1.0 mm (normal < 4.0 mm). There is no pericardial effusion. VALVES The valvular morphologies in the visualized sequences appear normal. There is no significant valvular stenosis or regurgitation of the mitral, aortic, tricuspid, or pulmonic valve noted visually. Systolic anterior motion of the mitral valve is not visualized. Ratio of pulmonary to systemic flow, Qp:Qs ratio = 0.8 (normal < or = 1.2, hemodynamically significant shunt > 1.5), demonstrating no evidence of hemodynamically significant shunt. TISSUE CHARACTERIZATION Resting Perfusion: Normal myocardial blood flow at rest. No evidence of resting hypoperfusion. Myocardial Fibrosis and/or edema: Normal gadolinium kinetics are present in the left ventricle. No evidence of late gadolinium enhancement is noted in the LV, consistent with absence of myocardial scarring, infarction, or necrosis. T2-weighted imaging demonstrates no evidence of myocardial edema or inflammation. OTHER No other significant findings are noted. However, this exam is focused on the cardiac structure and function. IMPRESSION Normal LV size with normal LV systolic function. LVEDVi= 82 ml/m2 and LVEF= 58.3%. Normal RV size with normal RV systolic function. RVEDVi= 85 ml/m2 and RVEF= 54.0%. No atrial enlargement. No CMR evidence of myocardial scarring, infarction, or necrosis. No evidence of myocardial edema or inflammation. Perfusion analysis demonstrates normal blood flow at rest with no evidence of resting hypoperfusion. Ratio of pulmonary to systemic flow, Qp:Qs ratio = 0.8 (normal < or = 1.2, hemodynamically significant shunt > 1.5), demonstrating no evidence of hemodynamically significant shunt. Overall, this CMR demonstrates normal biventricular size and systolic function. No evidence of prior LV infarct, fibrosis, or scarring. No CMR evidence of cardiomyopathy. COMPARISON None CRITICAL RESULT None COMMUNICATION The above findings were relayed to the patient at the time of the routine outpatient cardiology follow-up visit, prior to dictation of this report. The findings of this cardiac MR were reviewed, reported, and signed by Scot Powers MD (Data Management). Conclusion Electronically signed by : Maxine Powers MD 03/28/2025 21:05:41
--- OUTSIDE RECORDS SUMMARY | 2025-03-23 11:11 | XMS_ITS | Clinical Summary ---
Author Organization Healthcare Address [address] [place] [address] Care Team Providers Care Wrapper Stripper Name Role Phone Unavailable Primary Care Provider Unavailabl e Encounters Date Type Department Care Team Description 02/18/2025 11:25 AM EDT Ancillary Procedure [facility] [address] [place] [id number] Dyspnea from Last 3 Months Social History Tobacco Use Types Packs/Day Years Used Date Smoking Tobacco: Never Assessed Sex and Gender Information Value Date Recorded Sex Assigned at Not on file Legal Sex Male 7:39 PM EDT Gender Identity Not on file Sexual Orientation Not on file Plan of Treatment Health Maintenance Due Date Last Done Comments [facility]-Depression Screening 1995 [facility]-Infant/Child/Adol SDOH Screenings 1995 [facility]-Varicella Vaccines (1 of 2 - 13+ 2-dose series) 2008 [facility]- SDOH Screenings 2013 [facility]-Adult SDOH Screenings 2013 [facility]-Hepatitis B Vaccines (1 of 3 - 19+ 3-dose series) 2014 HPV Vaccines (1 - 3-dose SCD M series) 2022 [id number] Vaccine (1 - 20 24-25 season) 2024 [facility]-Influenza Vaccine (#1) 2025 [facility]-DTaP,Tdap,and Td Vaccine s (2 - Td or Tdap) 10/30/2034 10/30/2024 [facility]Y-Zoster Vaccines (1 of 2) 2045 [facility]-HIB Vaccines Aged Out No longer e ligible based on patient's age to complete this topic [facility]-Hepatitis A Vaccines Aged Out No longer eligible based on patient's age to complete this topic [facility]Y-IPV Vaccines Aged Out No longer e ligible based on patient's age to complete this topic [facility]Y-Pneumococcal Vaccine: Pediatrics (0 to 5 Years) and At-Risk Patients (6 to 49 Years) Aged Out No long er eligible based on patient's age to complete this topic [facility]-Rotavirus Vaccines Aged Out No lo nger eligible based on patient's age to complete this topic Procedures Procedure Name Priority Date/Time Associated Diagnosis Comments CT ANGIO CARDIAC CORONARY ARTERIES Routine 02/18/2025 11:22 AM EDT Dyspnea from Last 3 Months Results * CT Angio Cardiac Coronary Arteries [...] Data Image Acquisition: Images were acquired at [facility] in [place], and interpreted at [facility]. A 128-slice MDCT scanner (Matchmaker Videos [facility]) was used for data acquisition. A [...] was reviewed interactively on an advanced workstation (e-Go aeroplanes) capable of 2 and 3 dimensional displays [...] Data Image Acquisition: Images were acquired at [facility] in [place], andinterpreted at [facility]. A 128-slice MDCT scanner (LetMeGo) was used for data acquisition. A non-contrast [...] Data wasreviewed interactively on an advanced workstation (e-Go aeroplanes) capable of 2and 3 dimensional displays in [...] Wong MD on 02/18/2025 1:19 PM Monik Bergman Mann COACH PROFESSIONAL ATHLETES IMG CT PROCEDURES Laurie l Result from Last 3 Months Insurance [facility]
--- OUTSIDE RECORDS SUMMARY | 2025-03-23 11:11 | XMS_ITS | Patient Health Record ---
[facility] Address [address] [place] [id number] Care Team Providers Care Search Marketing Specialist Name Role Phone Hanny Caal Primary Care Provider [phone] Rachael Arya Unavailable [phone] Allergies No Known Allergies Results Component Value [...] - 38 plat 161 100 - 400 THYRO Reviewed date:12/27/2024 08:51:33 PM Interpretation: Performing Lab: Notes/Report: THYRO <1.0 0.0-0.9 IU/mL Thyroglobulin Antibody measured by [facility] Methodology It should be noted that the presence of thyroglobulin antibodies may not be pathogenic nor diagnostic, especially at very low levels. The assay test data developer has found that four percent of individuals without evidence of thyroid disease or autoimmunity will have positive TgAb levels up to 4 IU/mL. Performed at: [address] [id number] Crusher Feeder: Jeremie Holguin PhD, Phone: [phone] H-T3 Total Reviewed date:12/27/2024 08:51:33 PM Interpretation: Performing Lab: Notes/Report: T3T 143 71-180 ng/dL Performed at: [address] [id number] Crusher Feeder: Jeremie Holguin PhD, Phone: [phone] LEA Reviewed date:06/25/2024 09:50:30 AM Interpretation: Performing Lab: Notes/Report: P-TSH reflex to FT4 Reviewed date:07/02/2024 10:31:48 AM Interpretation: Normal Performing Lab: Notes/Report: Test performed by [facility] [address] [place] [address] , [address], [place] [address] Rodrick Castro MD, Tracing Lathe Set Up Operator CLIA: [id number] TSH reflex to FT4 0.45 0.43-5.25 mU/L P-Phosphorus Reviewed date:07/02/2024 10:31:48 AM Interpretation: Normal Performing Lab: Notes/Report: Test performed by [facility] [address] [place] [address] Rashi Damon, [address], [place] [address] Rodrick Castro MD, Tracing Lathe Set Up Operator CLIA: [id number] Phosphorus 2.6 2.5-4.5 mg/dL P-Magnesium Reviewed date:07/02/2024 10:31:48 AM Interpretation: Normal Performing Lab: Notes/Report: Test performed by [facility] [address] [place] [address] Rashi Damon, [address], [place] [address] Rodrick Castro MD, Tracing Lathe Set Up Operator CLIA: [id number] Magnesium 2.3 1.6-2.4 mg/dL P-Lipase Reviewed date:07/02/2024 10:31:48 AM Interpretation: Normal Performing Lab: Notes/Report: Test performed by [facility] [address] [place] [address] Rahsi Damon, [address], [place] [address] Rodrick Castro MD, Tracing Lathe Set Up Operator CLIA: [id number] Lipase 33.0 13.0-60.0 u/L P-Comprehensive Metabolic Pa francine (CMP) Reviewed date:07/02/2024 10:31:48 AM Interpretation:alt 112, ast 58 Performing Lab: Notes/Report: Test performed by [facility] [address] [place] [address] , [place] [address] Rodrick Castro MD, Tracing Lathe Set Up Operator CLIA: [id number] Sodium 141 135-145 mmol/L Potassium 4.7 3.5-5.3 [...] 0.3 <0.2-1.2 mg/dL A/G Ratio 1.8 1.1-2.5 P-Amylase Reviewed date:07/02/2024 10:31:48 AM Interpretation: Normal Performing Lab: Notes/Report: Test performed by [facility] [address] [place] [address] , [address], [place] [address] Rodrick Castro MD, Tracing Lathe Set Up Operator CLIA: [id number] Amylase 55 28-100 U/L CBC Fingerstick (in house) Reviewed date:07/01/2024 05:26:27 [...] - 38 plat 200 100 - 400 H-T4 (Thyroxine) Reviewed date:12/27/2024 08:51:33 PM Interpretation: Performing Lab: Notes/Report: T4 8.5 5.53-11.0 ug/dl H-CRP Reviewed date:12/27/2024 08:51:33 PM Interpretation: Performing Lab: Notes/Report: CRP 1.9 0-4 mg/L H-TSH Reviewed date:12/27/2024 08:51:33 PM Interpretation: Performing Lab: Notes/Report: TSH 0.91 0.465-4.68 uIU/mL CT Scan : Head w/o contrast Reviewed date:10/21/2024 12:35:56 PM Interpretation:Negative Performing Lab: Notes/Report: Negative Pulmonary Function Complete Reviewed date:11/11/2024 04:04:15 PM Interpretation: Performing Lab: Notes/Report: CBC Fingerstick (in house) Reviewed date:10/05/2024 04:33:36 [...] - 38 plat 172 100 - 400 CXR Reviewed date:10/21/2024 10:23:19 AM Interpretation: Performing Lab: Notes/Report: CBC Fingerstick (in house) Reviewed date:10/16/2024 05:18:43 [...] - 38 plat 205 100 - 400 CBC Fingerstick (in house) Reviewed date:10/16/2024 11:36:50 [...] - 38 plat 178 100 - 400 Medications Medication SIG (Take, Route, Frequency, Duration) [...] Status Risk Notes Problem Seasonal allergic rhinitis (342368379) Seasonal allergic rhinitis (477.9) Active confirmed Problem Scoliosis (542198945) Scoliosis NOS (737.43) Active confirmed Problem Palpitations (04627429) Palpitations (R00.2) Active confirmed Problem Hyperthyroidism (04427996) Hyperthyroidism (E05.90) Active confirmed Problem Headache (15666159) Headache syndrome (G44.89) Active confirmed Problem Attention deficit hyperactivity disorder, 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 9 [facility] [address] [facility] [address] [place], [place] [id number] 07/01/2024 Arya Addis Diarrhea, unspecifie d type R19.7 and Dizziness R42 [facility] [address] [place], [place] [id number] 10/05/2024 Arya Addis Gastroenteritis K52. 9 and Frequent headaches R51.9 [facility] [address] [facility] [address] [place], [place] [id number] 10/08/2024 R Rishi Ten AGE (acute gastroenteritis) K52.9 ; Acute URI J06.9 and Headache syndrome G44.89 [facility] [address] [place], [place] [id number] 10/16/2024 Arya Addis Acute URI J06.9 and BMI 20.0-20.9, adult Z68.20 [facility] [address] [place], [place] [id number] 10/20/2024 R Rishi Ten Pleurisy R09.1 and B AZ 21.0-21.9, adult Z68.21 [facility] [address] [place], [place] [id number] 10/27/2024 R Rishi Ten Dyspnea R06.00 [facility] [address] [place] [id number] 10/30/2024 Arya Addis Encounter for immunization Z23 [facility] [address] [place], [place] [id number] 11/12/2024 R Rishi Ten Palpitations R00.2 a nd Dyspnea on exertion R06.09 [facility] [address] [place], [place] [id number] 12/10/2024 R Rishi Ten Hyperthyroidism E05. 90 and Dyspnea on exertion R06.09 [facility] [address] [place], [place] [id number] 07/02/2024 Arya Addis [facility] [address] [place] [id number] 07/06/2024 Arya Addis [facility] [address] [place] [id number] 10/12/2024 R Rishi Ten [facility] [address] [place] [id number] 10/20/2024 R Rishi Ten [facility] [address] [place] [id number] 10/21/2024 R Rishi Quirost [facility] [address] [facility] [address] [place], [place] [id number] 11/06/2024 R Rishi Garciaeet [facility] [address] [place], [place] [id number] 11/07/2024 R Rishi Angulofleet [facility] [address] [place], [place] [id number] 12/27/2024 R Rishi Garciaeet [facility] [address] [place], [place] [id number] 01/04/2025 R Rishi Angulofleet Assessments Encounter Date Diagnosis (ICD Code) Assessment Notes Treatment Notes Treatment Clinical Notes Section Notes 06/26/2024 Gastroenteritis (ICD-10 - K52.9) 10/08/2024 Acute URI (ICD-10 - J06.9) 10/08/2024 AGE (acute gastroenteritis) (ICD-10 - K52.9) 10/16/2024 Acute URI (ICD-10 - J06.9) 10/16/2024 BMI 20.0-20.9, adult (ICD-10 - Z68.20) 10/20/2024 Pleurisy (ICD-10 - R09.1) 10/20/2024 BMI 21.0-21.9, adult (ICD-10 - Z68.21) 10/30/2024 Encounter for immunization (ICD-10 - Z23) 11/12/2024 Palpitations (ICD-10 - R00.2) 11/12/2024 Dyspnea on exertion (ICD-10 - R06.09) Pulmonary workup for evaluation of his dyspnea including chest x-ray and pulmonary function studies have been nonrevealing. Will make referral to cardiology to rule out possible dysrhythmia or other etiologies. 12/10/2024 Hyperthyroidism (ICD-10 - E05.90) Check labs to rule out hyperthyroidism . May need thyroid imaging. 10/27/2024 Dyspnea (ICD-10 - R06.00) Etiology of his dyspnea is unclear. His pulmonary exam is normal and his recent chest x-ray is also normal. Will start albuterol MDI and arrange for pulmonary function studies. He will remain off work until PFT is completed. 10/05/2024 Gastroenteritis (ICD-10 - K52.9) fluids, rest, supportive measures, dehydration precautions discussed 10/05/2024 Frequent headaches (ICD-10 - R51.9) 07/01/2024 Dizziness (ICD-10 - R42) 07/01/2024 Diarrhea, unspecified type (ICD-10 - R19.7) 12/10/2024 Dyspnea on exertion (ICD-10 - R06.09) Keep follow-up appoint with cardiology 10/08/2024 Headache syndrome (ICD-10 - G44.89) Plan Of Treatment Pending Test Test Name Order Date B-E-Gxxsggem Protein (CRP) 12/10/2024 P-Total T3 12/10/2024 P-T4 (Thyroxine) 12/10/2024 P-Thyroglobulin, Serum 12/10/2024 P-TSH 12/10/2024 TEN-stool panel 07/01/2024 Insurance Providers Payer Name Payer Address Payer Phone Subscriber Number Group Number Insured Name Patient Relationship to Insured Coverage Start Date Coverage End Date [facility] [address] [place] [id number] [phone] [id number] BERE COSME II Self - patient is the insured Medications Administered Medication Instructions Date of Administration Dosage Notes allergy 01/19/2005 0.5 mL wkly allergy i nj given allergy 01/30/2005 0.5 mL allergy 02/06/2005 0.5 mL allergy 04/10/2005 0.10 mL allergy 04/17/2005 .15 allergy 04/24/2005 0.1 mL allergy 06/27/2005 allergy 07/31/2005 0.1 mL allergy 09/18/2005 .10CC allergy 10/25/2005 0.1 allergy 12/18/2005 .o5 allergy 09/11/2005 0.5 mL allergy 09/04/2005 0.5 mL allergy 08/07/2005 0.25 allergy 07/25/2005 0.10 allergy 06/18/2005 0.5 mL allergy 06/07/2005 0.15 mL allergy 05/22/2005 0.5 mL allergy 03/19/2005 0.25 mL allergy 03/13/2005 0.10 mL allergy 03/06/2005 0.5 mL allergy 02/20/2005 0.5 mL allergy 01/09/2006 0.1 allergy 11/13/2005 Medical (General) History Medical History History ICD Code Allergies Asthma ADD Surgical History Surgery Date(Month/Year) Heart Ablation 2011 Cholecystectomy 04/26/2023 Hospitalization History Reason Date(Month/Year) [facility] ER-laceration right foot 09/26/2014 [facility] ER-pain in left side 12/2012
--- OUTSIDE RECORDS SUMMARY | 2025-03-23 11:12 | XMS_ITS | Clinical Summary ---
Author Organization [facility] Address [address] [facility] [address] [place] [address] Phone Care Team Providers Care Radiochemical Technician Name Role Phone Unavailable Primary Care Provider [...] COVID-19 Vaccine ( - 2023-2 5 season) 2025 Influenza Vaccine (#1) 2025 Meningococcal B Vaccine Aged Out No l onger eligible based on patient's age to complete this topic Pneumococcal Vaccine 0-49 Aged Out No longer eligible based on patient's age to complete this topic
--- OUTSIDE RECORDS SUMMARY | 2025-03-23 11:12 | XMS_ITS | Clinical Summary ---
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 Gender Identity Male 10/02/2023 3:30 PM CDT [...] of 3 - 3-dose series) 05/08/1996 04/10/1996 HPV Immunization (1 - Male 3 -dose series) 2010 Hep B Infection Screening - Triple Screen 2013 Pneumococcal: Ped (0 to 5 Yr s) and At-Risk Member (6 to 64 Yrs) (1 of 2 - PCV) 2014 Tetanus Diphtheria and Pertu ssis Immunization (1 - Tdap) 2014 Annual Preventive Exam 07/06/2022 07/06/2021 Covid-19 Immunization (1 - 2 -25 season) 2025 Influenza Immunization (#1) 2025 HIB Immunization Aged [...] OPT OUT NO COPAY NB Care Teams Rate Analyst Relationship Specialty Start Date End Date Will Caal MD [address] [place] [address] PCP - General Family Medicine 10/26/24
[2025-03-23] MEDS: 0.9 % SODIUM CHLORIDE 50 ML VIAL 20 ML IV (12:09)
[2025-03-23] MEDS: GADOTERIDOL INJ 20ML SYRINGE 16 ML IV (12:09)
[2025-03-23] MEDS: SODIUM CHLORIDE 0.9% 10ML SYR (RAD ONLY) 10 ML IV (12:09)
== END 2025-03-23 23:59 | disposition home or self-care (01) ==
LOC: RAD 10:37
PROVIDERS: PCP Family Medicine; Visit Provider Nurse Practitioner
DX: R07.9 Chest pain, unspecified (principal); R06.00 Dyspnea, unspecified
CPT/HCPCS: 75561; A9576

== ENCOUNTER 2025-06-14 11:36 | Outpatient (CLI) | payer BC, SELFPAY ==
--- OUTSIDE RECORDS SUMMARY | 2025-06-14 11:56 | XMS_ITS | Clinical Summary ---
Author Organization [facility] Address [address] [facility] [address] [place] [address] Phone Care Team Providers Care Laundry Attendant Name Role Phone Unavailable Primary Care Provider [...] 3-dose series) 2014 COVID-19 Vaccine ( - 2024-2 6 season) 2025 Influenza Vaccine (#1) 2025 Meningococcal B Vaccine Aged Out No l onger eligible based on patient's age to complete this topic Pneumococcal Vaccine 0-49 Aged Out No longer eligible based on patient's age to complete this topic
--- OUTSIDE RECORDS SUMMARY | 2025-06-14 11:56 | XMS_ITS | Clinical Summary ---
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
--- OUTSIDE RECORDS SUMMARY | 2025-06-14 11:56 | XMS_ITS | Clinical Summary ---
Author Organization Healthcare Address [address] [place] [address] Care Team Providers Care Film Processing Utility Worker Name Role Phone Unavailable Primary Care Provider [...] Date Last Done Comments [facility]-Depression Screening 1995 [facility]-/Child/Adol SDOH Screenings 1995 [facility]-Varicella Vaccines (1 of 2 - 13+ 2-dose series) 2008 [facility]- SDOH Screenings 2013 [facility]-Adult SDOH Screenings 2013 [facility]-Hepatitis B Vaccines (1 of 3 - 19+ 3-dose series) 2014 HPV Vaccines (1 - 3-dose SCD M series) 2022 [id number] Vaccine (1 - 20 25-26 season) 2025 [facility]-Influenza Vaccine (#1) 2025 [facility]-DTaP,Tdap,and Td Vaccine [...] patient's age to complete this topic Insurance JANET
--- NOTE | 2025-06-14 12:11 | XR_ITS ---
FINAL REPORT CLINICAL HISTORY: SOB since september COMPARISON: 10/20/2024 FINDINGS: PA and lateral views of the chest were obtained. The cardiac and mediastinal silhouettes are within normal limits. The lungs are clear. There is no pleural effusion or pneumothorax. No acute osseous abnormality is identified. IMPRESSION: No radiographic evidence of acute cardiac or pulmonary disease. Reviewed, Interpreted and Dictated by Bethany Glynn MD Transcribed by Machelle Zaman Authenticated and [facility]
[2025-06-14 13:01] LABS: D-Dimer 0.97 ug/mL (0.0-0.5)
== END 2025-06-14 23:59 | disposition home or self-care (01) ==
LOC: RT 11:37
PROVIDERS: PCP Family Medicine; Visit Provider Internal Medicine Pulmonary Disease
DX: R06.02 Shortness of breath (principal); R06.09 Other forms of dyspnea
CPT/HCPCS: 36415; 71046; 85378; 94618

== ENCOUNTER 2025-06-16 07:57 | Outpatient (CLI) | payer BC, SELFPAY ==
--- OUTSIDE RECORDS SUMMARY | 2024-06-26 09:30 | XMS_ITS ---
Author Organization [facility] Address [address] [facility] [address] [place] [id number] Care Team Providers Care Coordinate Measuring Machine Technician Name Role Phone Hanny Caal Primary Care Provider [phone] Arya Cano Unavailable [phone] Allergies No Known Allergies Results Component Value Reference Range Notes CBC Fingerstick (in house) Reviewed date:06/26/2024 03:45:13 PM Interpretation: Performing Lab: Notes/Report: wbc 4.4 3.5 - 10 lym 26.8% 15 - 50 mid 6.7% 2 - 15 gran 66.5% 35 - 80 rbc 4.94 3.5 - 5.5 hgb 14.8 11.5 - 16.5 hct 44.3 35 - 55 mcv 89.7 75 - 100 mch 29.9 25 - 35 mchc 33.3 31 - 38 plat 161 100 - 400 REASON FOR VISIT fu from [facility] ER note Vital Signs Blood pressure systolic 100 mm Hg 06/26/20 24 Blood pressure diastolic 68 mm Hg 024 Heart Rate 101 /min 06/26/2024 Height 73 in 06/26/2024 Weight 166.6 lbs 06/26/2024 BMI 21.98 kg/m2 06/26/2024 Encounters Encounter Location Date Provider Diagnosis [facility] [address] [place] [id number] 06/26/2024 Arya Cano Gastroenteritis K52. 9 Assessments Encounter Date Diagnosis (ICD Code) Assessment Notes Treatment Notes Treatment Clinical Notes Section Notes 06/26/2024 Gastroenteritis (ICD-10 - K52.9) Plan Of Treatment Next Appt Details Follow Up: via phone to repo rt progress, Reason: Progress Notes * RADHA COSME IIOB:1994 (30 yo M)Acc No.[id number]:06/26/2024 Progress Notes Patient: BERE ALBA II Provider: Alysha Cano M.D. :1995 A ge:29 Y S ex:Male Date:06/26/2024 [facility] [id number] Pcp:Hanny Caal Subjective: * Chief Complaints: * 1 . fu from [facility] ER note. * HPI: H PI: 29 year old male presents with c/o Here for follow up on: 1 08/25/[address] [facility] er visit, see printed docs. Pt went to er for chest pain, palpitations, vomiting and diarrhea. He has not picked up the script for Zofran yet. c/o Patient is here today for P t here to establish care. Pt sts he is still not better. Pt sts he is doing worse than he was. * ROS: D ERMATOLOGY: no R gómez. n o H forest. G ASTROENTEROLOGY: no N ausea. n o V omiting. U ROLOGY: no D ifficulty urinating. n o B lood in urine. * Medical History: A llergies, Asthma, ADD. * Surgical History: H eart Ablation 2011, Cholecystectomy 04/26/2023. * Hospitalization/Major Diagno stic Procedure: H ER-pain in left side 12/2012, [facility] ER-laceration right foot 09/26/2014. * Family History: F ather: 54 yrs, diabetes. M other: alive 62 yrs. S iblings: only child. * Social History: C URRENT TOBACCO USE S moking Status: Patient does NOT smoke. C affeine: yes, frequency: daily. Marital Status: Single. Past smoking status: no, Smoking status: Does not smoke. Recreational drug use: no. Alcohol: No. * Medications: N one * Allergies: N .K.D.A. Objective: * Vitals: W t:166.6, Temp:98.0, BP:100/68, HR:101, Nurse:amari, Ht: 73, BMI:21.98. * Examination: G astroenterology: General Appearance: p leasant, NAD. O ral cavity: n ormal. S clera: a nicteric. H eart sounds: r egular, normal S1 S2. L ungs: c lear, no rales or wheezes. A bdomen: B S present, soft, minimal periumbilical tenderness, no guarding or rigidity, no masses felt. Assessment: * Assessment: 1. G astroenteritis - K52.9 (Primary) Plan: * Treatment: Value Reference Range w bc 4.4 3.5 - 10 * l ym 26.8% 15 - 50 * m id 6.7% 2 - 15 * g ran 66.5% 35 - 80 * r bc 4.94 3.5 - 5.5 * h gb 14.8 11.5 - 16.5 * h ct 44.3 35 - 55 * m cv 89.7 75 - 100 * m ch 29.9 25 - 35 * m chc 33.3 31 - 38 * p lat 161 100 - 400 * Bekah Shelby 06/26/2024 3:41:16 PM > , Provider reviewed results while patient in office. * Procedure Codes: 3 6416 CAPILLARY BLOOD DRAW, 81822 CBC WITH AUTO DIFF * Follow Up: v ia phone to report progress * Images: Billing Information: * Visit Code: 98496 Office Visit, New Pt., Level 3. * Procedure Codes: 47836 CAPILLARY BLOOD DRAW. 05214 CBC WITH AUTO DIFF. * Electronic signature of Giselle Cano MD on 06/16/2025 at 08:03 AM EST Sign off status: Pending * Provider: Alysha Cano M.D. Date: 08/27/2023 Generated for Rafiq cheung/Jose/Grace on: 08/16/2024 08:03 AM EST History and Physical Notes * HPI (History of Present Illness) Category Sub-Category Detail Notes Category Not es HPI Here for follow up on: [address] [facility] er visit, see printed docs. Pt went to er for chest pain, palpitations, vomiting and diarrhea. He has not picked up the script for Zofran yet Patient is here today for Pt here to [facility]. Pt sts he is still not better. Pt sts he is doing worse than he was Examination Category Sub-Category Detail Notes Category Not es Gastroenterology Oral cavity: normal Sclera: anicteric Heart sounds: regular, normal S1 S 2 Lungs: clear, no rales or w heezes Abdomen: BS present, soft, mi nimal periumbilical tenderness, no guarding or rigidity, no masses felt General Appearance: pleasant, NAD
--- OUTSIDE RECORDS SUMMARY | 2024-07-01 08:30 | XMS_ITS ---
Author Organization [facility] Address [address] [place] [id number] Care Team Providers Care Cell Tuber Machine Name Role Phone Hanny Caal Primary Care Provider [phone] Rachael Arya Unavailable [phone] Allergies No Known Allergies Results Component Value Reference Range Notes CBC Fingerstick (in house) Reviewed date:07/01/2024 05:26:27 PM Interpretation: Performing Lab: Notes/Report: wbc 5.6 3.5 - 10 lym 29.7% 15 - 50 mid 6.3% 2 - 15 gran 64.0% 35 - 80 rbc 4.82 3.5 - 5.5 hgb 14.3 11.5 - 16.5 hct 43.2 35 - 55 mcv 89.5 75 - 100 mch 29.7 25 - 35 mchc 33.2 31 - 38 plat 200 100 - 400 P-Amylase Reviewed date:07/02/2024 10:31:48 AM Interpretation: Normal Performing Lab: Notes/Report: Test performed by [facility] [address] [place] [address] , [address], [place] [address] Rodrick Castro MD, Heel Buffer CLIA: [id number] Amylase 55 28-100 U/L P-Comprehensive Metabolic Pa francine (CMP) Reviewed date:07/02/2024 10:31:48 AM Interpretation:alt 112, ast 58 Performing Lab: Notes/Report: Test performed by [facility] [address] [place] [address] [place] [address] Rodrick Castro MD, Heel Buffer CLIA: [id number] Sodium 141 135-145 mmol/L Potassium 4.7 3.5-5.3 mmol/L Chloride 104 97-108 mmol/L CO2 26 22-32 mmol/L Glucose 93 65-99 mg/dL BUN 12 6-20 mg/dL Creatinine 0.79 0.70-1.30 mg/dL Calcium 9.5 8.6-10.4 mg/dL eGFR by Creatinine 123 >59 mL/min/1.73m2 Protein 7.2 6.0-8.3 g/dL Albumin 4.6 3.5-5.3 g/dL Alkaline Phosphatase 77 40-129 IU/L ALT (SGPT) 112 <5-55 IU/L AST (SGOT) 58 <5-46 IU/L Bilirubin, Total 0.3 <0.2-1.2 mg/dL A/G Ratio 1.8 1.1-2.5 P-Lipase Reviewed date:07/02/2024 10:31:48 AM Interpretation: Normal Performing Lab: Notes/Report: Test performed by [facility] [address] [place] [address] , [place] [address] Rodrick Castro MD, Heel Buffer CLIA: [id number] Lipase 33.0 13.0-60.0 u/L P-Magnesium Reviewed date:07/02/2024 10:31:48 AM Interpretation: Normal Performing Lab: Notes/Report: Test performed by [facility] [address] [place] [address] , [place] [address] Rodrick Castro MD, Heel Buffer CLIA: [id number] Magnesium 2.3 1.6-2.4 mg/dL P-Phosphorus Reviewed date:07/02/2024 10:31:48 AM Interpretation: Normal Performing Lab: Notes/Report: Test performed by [facility] [address] [place] [address] , [place] [address] Rodrick Castro MD, Heel Buffer CLIA: [id number] Phosphorus 2.6 2.5-4.5 mg/dL P-TSH reflex to FT4 Reviewed date:07/02/2024 10:31:48 AM Interpretation: Normal Performing Lab: Notes/Report: Test performed by [facility], [employer] [facility] , [address], [place] [address] Rodrick Castro MD, Heel Buffer CLIA: [id number] TSH reflex to FT4 0.45 0.43-5.25 mU/L REASON FOR VISIT dizziness Vital Signs Blood pressure systolic 100 mm Hg 07/01/20 24 Blood pressure diastolic 74 mm Hg 024 Heart Rate 85 /min 07/01/2024 Height 73 in 07/01/2024 Weight 165.4 lbs 07/01/2024 BMI 21.82 kg/m2 07/01/2024 Encounters Encounter Location Date Provider Diagnosis [facility] [address] [place] [id number] 07/01/2024 Arya Cano Diarrhea, unspecifie d type R19.7 and Dizziness R42 Assessments Encounter Date Diagnosis (ICD Code) Assessment Notes Treatment Notes Treatment Clinical Notes Section Notes 07/01/2024 Diarrhea, unspecified type (ICD-10 - R19.7) 07/01/2024 Dizziness (ICD-10 - R42) Plan Of Treatment Pending Test Test Name Order Date TEN-stool panel 07/01/2024 Next Appt Details Follow Up: via phone to repo rt progress, Reason: Progress Notes * RADHA COSME IIOB:1994 (30 yo M)Acc No.[id number]:07/01/2024 Progress Notes Patient: BERE ALBA II Provider: Alysha Cano M.D. :1995 A ge:29 Y S ex:Male Date:07/01/2024 Address:[address] [place], [place] [address], [id number] Pcp:Hanny Caal Subjective: * Chief Complaints: * 1 . Dizziness. * HPI: N eurology: 29 year old male presents with c/o Dizziness o ff and on for a few days. G astroenterology: c/o Diarrhea P t complains of ongoing diarrhea. Pt was seen 06/26 for vomiting and diarrhea, vomiting has improved as of Saturday. * ROS: D ERMATOLOGY: no R gómez. n o H forest. G ASTROENTEROLOGY: no N ausea. n o V omiting. U ROLOGY: no D ifficulty urinating. n o B lood in urine. * Medical History: A llergies, Asthma, ADD. * Surgical History: H eart Ablation 2011, Cholecystectomy 04/26/2023. * Hospitalization/Major Diagno stic Procedure: H ER-pain in left side 12/2012, [facility] ER-laceration right foot 09/26/2014. * Family History: [...] Allergies: N .K.D.A. Objective: * Vitals: W t:165.4, Temp:97.8, BP:100/74, HR:85, Nurse:amari, Ht: 73, BMI:21.82. * Examination: G astroenterology: General Appearance: p leasant, NAD. O ral cavity: n ormal. S clera: a nicteric. H eart sounds: r egular, normal S1 S2. L ungs: c lear, no rales or wheezes. A bdomen: B S present, soft, minimal periumbilical tenderness, no guarding or rigidity, no masses felt. Assessment: * Assessment: 1. D iarrhea, unspecified type - R19.7 (Primary) 2 . D izziness - R42 ? Plan: * Treatment: ?LAB: P-Amylase (Collection Date & Time - 07/01/2024 01:12 PM)?Normal* Value Reference Range A mylase 55 28-100 - U/L * LaneyZeinab 07/02/2024 10:3 1:40 AM >See phone encounter ?LAB: P-Comprehensive Metabolic Panel (CMP) (Collection Date & Time - 07/01/2024 01:12 PM)?alt 112, ast 58* Value Reference Range A /G Ratio 1.8 1.1-2.5 - * A lbumin 4.6 3.5-5.3 - g/dL * A lkaline Phosphatase 77 40-129 - IU/L * A LT (SGPT) 112 H <5-55 - IU/L * A ST (SGOT) 58 H <5-46 - IU/L * B ilirubin, Total 0.3 <0.2-1.2 - mg/dL * B UN 12 6-20 - mg/dL * C alcium 9.5 8.6-10.4 - mg/dL * C hloride 104 97-108 - mmol/L * C O2 26 22-32 - mmol/L * C reatinine 0.79 0.70-1.30 - mg/dL * G lucose 93 65-99 - mg/dL * P otassium 4.7 3.5-5.3 - mmol/L * S odium 141 135-145 - mmol/L * P rotein 7.2 6.0-8.3 - g/dL * e GFR by Creatinine 123 >59 - mL/min/1.73m2 * Zeinab Davison 07/02/2024 10:3 1:40 AM >See phone encounter ?LAB: P-Lipase (Collection Date & Time - 07/01/2024 01:12 PM)?Normal* Value Reference Range L ipase 33.0 13.0-60.0 - u/L * Zeinab Davison 07/02/2024 10:3 1:40 AM >See phone encounter ?LAB: P-TSH reflex to FT4 (Collection Date & Time - 07/01/2024 01:12 PM)? Normal* Value Reference Range T SH reflex to FT4 0.45 0.43-5.25 - mU/L * Zeinab Davison 07/02/2024 10:3 1:40 AM >See phone encounter ?LAB: CBC Fingerstick (in house) (Collection Date & Time - 07/01/2024)* Value Reference Range w bc 5.6 3.5 - 10 * l ym 29.7% 15 - 50 * m id 6.3% 2 - 15 * g ran 64.0% 35 - 80 * r bc 4.82 3.5 - 5.5 * h gb 14.3 11.5 - 16.5 * h ct 43.2 35 - 55 * m cv 89.5 75 - 100 * m ch 29.7 25 - 35 * m chc 33.2 31 - 38 * p lat 200 100 - 400 * Bekah Shelby 07/01/2024 2:32:2 1 PM > , Provider reviewed results while patient in office.Arya Cano 07/01/2024 5:26:23 PM > 2.?Dizziness?LAB: P-Magnesium (Collection Date & Time - 07/01/2024 01:12 PM)?Normal* Value Reference Range M agnesium 2.3 1.6-2.4 - mg/dL * Zeinab Davison 07/02/2024 10:3 1:40 AM >See phone encounter ?LAB: P-Phosphorus (Collection Date & Time - 07/01/2024 01:12 PM)?Normal* Value Reference Range P hosphorus 2.6 2.5-4.5 - mg/dL * Zeinab Davison 07/02/2024 10:3 1:40 AM >See phone encounter * Procedure Codes: 8 5025 CBC WITH AUTO DIFF * Follow Up: v ia phone to report progress * Images: Billing Information: * Visit Code: 41942 Office Visit, Est Pt., Level 4. * Procedure Codes: 88831 CBC WITH AUTO DIFF. * Electronic signature of Giselle Cano MD on 06/16/2025 at 08:02 AM EST Sign off status: Pending * Provider: Alysha Cano M.D. Date: 09/01/2023 Generated for Rafiq cheung/Jose/eTransmitting on: 08/16/2024 08:02 AM EST History and Physical Notes * HPI (History of Present Illness) Category Sub-Category Detail Notes Category Not es Neurology Dizziness off and on for a few days Gastroenterology Diarrhea Pt complains of ongoing diarrhea. Pt was seen 06/26 for vomiting and diarrhea, vomiting has improved as of Saturday Examination Category Sub-Category Detail Notes Category Not es Gastroenterology Oral cavity: normal Sclera: anicteric Heart sounds: regular, normal S1 S 2 Lungs: clear, no rales or w heezes Abdomen: BS present, soft, mi nimal periumbilical tenderness, no guarding or rigidity, no masses felt General Appearance: pleasant, NAD
--- OUTSIDE RECORDS SUMMARY | 2024-10-05 09:45 | XMS_ITS ---
[facility] [address] [facility] [address] [place] [id number] Care Team Providers Care Commissioning Manager Name Role Phone Hanny Caal Primary Care Provider Arya Cano Unavailable [phone] Allergies No Known Allergies Results Component Value Reference Range Notes CBC Fingerstick (in house) Reviewed date:10/05/2024 04:33:36 PM Interpretation: Performing Lab: Notes/Report: wbc 4.3 3.5 - 10 lym 35.1% 15 - 50 mid 8.4% 2 - 15 gran 56.5% 35 - 80 rbc 4.69 3.5 - 5.5 hgb 14.1 11.5 - 16.5 hct 42.0 35 - 55 mcv 89.5 75 - 100 mch 30.2 25 - 35 mchc 33.7 31 - 38 plat 172 100 - 400 REASON FOR VISIT vomiting and diarrhea Medications Medication SIG (Take, Route, Frequency, Duration) Notes Start Date End Date Status SUMAtriptan Succinate 100 MG 1 tablet as needed, may take second dose at least 2 hours after first dose up to 2 tablets per day as needed Orally Once a day 10/05/2024 Active Vital Signs Blood pressure systolic 110 mm Hg 10/06/19 25 Blood pressure diastolic 70 mm Hg 025 Heart Rate 92 /min 10/05/2024 Height 73 in 10/05/2024 Weight 164.4 lbs 10/05/2024 BMI 21.69 kg/m2 10/05/2024 Encounters Encounter Location Date Provider Diagnosis [facility] [address] [place] [id number] 10/05/2024 A[place] Gastroenteritis K52. 9 and Frequent headaches R51.9 Assessments Encounter Date Diagnosis (ICD Code) Assessment Notes Treatment Notes Treatment Clinical Notes Section Notes 10/05/2024 Gastroenteritis (ICD-10 - K52.9) fluids, rest, supportive measures, dehydration precautions discussed 10/05/2024 Frequent headaches (ICD-10 - R51.9) Plan Of Treatment Medication Medication Name Sig Start Date Stop Date Notes SUMAtriptan Succinate 100 MG 1 tablet as needed, may take second dose at least 2 hours after first dose up to 2 tablets per day as needed Orally Once a day 10/05/2024 Treatment Notes Assessment Notes Gastroenteritis fluids, rest, suppor tive measures, dehydration precautions discussed Next Appt Details Follow Up: via phone to repo rt progress, Reason: Progress Notes * RADHA COSME IIOB:1994 (30 yo M)Acc No.[id number]:10/05/2024 Progress Notes Patient: BERE ALBA II Provider: Alysha Cano M.D. :1995 A ge:29 Y S ex:Male Date:10/05/2024 Address:[place], [id number] Pcp:Hanny Caal Subjective: * Chief Complaints: * 1 . Vomiting and diarrhea. * HPI: G astroenterology: 29 year old male presents with c/o Vomiting P t complains of vomiting and diarrhea that started Saturday morning. Pt states he has also had some dizziness. Pt states he is able to keep food and fluids down for about an hour before he vomits . * ROS: D ERMATOLOGY: no R gómez. n o H forest. G ASTROENTEROLOGY: no N ausea. n o V omiting. N EUROLOGY: Headache y es, 1 or 2 per week over the past month, usually hurts on the left side of his head, very sensitive to light, headache is usually gone after sleep. U ROLOGY: no D ifficulty urinating. n o B lood in urine. * Medical History: A llergies, Asthma, ADD. * Surgical History: H eart Ablation 2011, Cholecystectomy 04/26/2023. * Hospitalization/Major Diagno stic Procedure: H ER-pain in left side 12/2012, [facility] ER-laceration right foot 09/26/2014. * Family History: F ather: 54 yrs, diabetes. M other: alive 63 yrs. S iblings: only child. * Social History: C URRENT TOBACCO USE S moking Status: Patient does NOT smoke. C affeine: yes, frequency: daily. Marital Status: Single. Past smoking status: no, Smoking status: Does not smoke. Recreational drug use: no. Alcohol: No. * Medications: N one * Allergies: N .K.D.A. Objective: * Vitals: W t:164.4, Temp:98.3, BP:110/70, HR:92, Nurse:amari, Ht: 73, BMI:21.69. * Examination: G astroenterology: General Appearance: p leasant, NAD. O ral cavity: n ormal. S clera: a nicteric. H eart sounds: r egular, normal S1 S2. L ungs: c lear, no rales or wheezes. A bdomen: B S present, soft, nontender, no guarding or rigidity, no masses felt. Assessment: * Assessment: 1. G astroenteritis - K52.9 (Primary) 2 . F requent headaches - R51.9 ? Plan: * Treatment: Value Reference Range w bc 4.3 3.5 - 10 * l ym 35.1% 15 - 50 * m id 8.4% 2 - 15 * g ran 56.5% 35 - 80 * r bc 4.69 3.5 - 5.5 * h gb 14.1 11.5 - 16.5 * h ct 42.0 35 - 55 * m cv 89.5 75 - 100 * m ch 30.2 25 - 35 * m chc 33.7 31 - 38 * p lat 172 100 - 400 * Bekah Shelby 10/05/2024 3:18:36 PM > , Provider reviewed results while patient in office. Notes: fluids, rest, supportive measures, dehydration precautions discussed?? 2.?Frequent headaches? Start SUMAtriptan Succinate Tablet, 100 MG, 1 tablet as needed, may take second dose at least 2 hours after first dose up to 2 tablets per day as needed, Orally, Once a day, 10, Refills 0.?? * Procedure Codes: 3 6416 CAPILLARY BLOOD DRAW, 95723 CBC WITH AUTO DIFF * Follow Up: v ia phone to report progress * Images: Billing Information: * Visit Code: 67690 Office Visit, Est Pt., Level 3. * Procedure Codes: 67741 CAPILLARY BLOOD DRAW. 28481 CBC WITH AUTO DIFF. * Electronic signature of Giselle Cano MD on 06/16/2025 at 08:03 AM EST Sign off status: Pending * Provider: Alysha Cano M.D. Date: 0 10/05/2024 Generated for Rafiq cheung/Jose/Grace on: 08/16/2024 08:03 AM EST History and Physical Notes * HPI (History of Present Illness) Category Sub-Category Detail Notes Category Not es Gastroenterology Vomiting Pt complains of vomiting and diarrhea that started Gabriel morning. Pt states he has also had some dizziness. Pt states he is able to keep food and fluids down for about an hour before he vomits Examination Category Sub-Category Detail Notes Category Not es Gastroenterology Oral cavity: normal Sclera: anicteric Heart sounds: regular, normal S1 S 2 Lungs: clear, no rales or w heezes Abdomen: BS present, soft, no ntender, no guarding or rigidity, no masses felt General Appearance: pleasant, NAD
--- OUTSIDE RECORDS SUMMARY | 2024-10-08 09:45 | XMS_ITS ---
[facility] Organization [facility] Address [address] [facility] [address] [place] [id number] Care Team Providers Care Chiropractor Assistant Name Role Phone Hanny Caal Primary Care Provider Allergies No Known Allergies Results Component Value Reference Range Notes CBC Fingerstick (in house) Reviewed date:10/16/2024 11:36:50 AM Interpretation: Performing Lab: Notes/Report: wbc 5.4 3.5 - 10 lym 19.5 15 - 50 mid 5.4 2 - 15 gran 75.1 35 - 80 rbc 4.60 3.5 - 5.5 hgb 13.8 11.5 - 16.5 hct 41.5 35 - 55 mcv 90.2 75 - 100 mch 29.9 25 - 35 mchc 33.2 31 - 38 plat 178 100 - 400 CT Scan : Head w/o contrast Reviewed date:10/21/2024 12:35:56 PM Interpretation:Negative Performing Lab: Notes/Report: Negative REASON FOR VISIT Vomiting, diarrhea Medications Medication SIG (Take, Route, Frequency, Duration) Notes Start Date End Date Status SUMAtriptan Succinate 100 MG 1 tablet as needed, may take second dose at least 2 hours after first dose up to 2 tablets per day as needed Orally Once a day 10/05/2024 Not-Taking Ondansetron HCl 4 MG 1 tablet Orally q6h orn 10/08 Active Cefuroxime Axetil 250 MG 1 tablet Orally Two times a day 10/08/2024 Active Problems Problem Type SNOMED Code ICD Code Onset Dates Problem Status W/U Status Risk Notes Problem Headache (55857727) Headache syndrome (G44.89) Active confirmed Vital Signs Blood pressure systolic 108 mm Hg 10/09/19 25 Blood pressure diastolic 60 mm Hg 025 Heart Rate 89 /min 10/08/2024 Height 73 in 10/08/2024 Weight 163.8 lbs 10/08/2024 BMI 21.61 kg/m2 10/08/2024 Encounters Encounter Location Date Provider Diagnosis [facility] [address] [place], [place] [id number] 10/08/2024 Hanny Caal AGE (acute gastroenteritis) K52.9 ; Acute URI J06.9 and Headache syndrome G44.89 Assessments Encounter Date Diagnosis (ICD Code) Assessment Notes Treatment Notes Treatment Clinical Notes Section Notes 10/08/2024 AGE (acute gastroenteritis ) (ICD-10 - K52.9) 10/08/2024 Acute URI (ICD-10 - J06.9) 10/08/2024 Headache syndrome (ICD-10 - G44.89) Plan Of Treatment Medication Medication Name Sig Start Date Stop Date Notes Ondansetron HCl 4 MG 1 tablet Orally q6h orn 10/08/2024 Cefuroxime Axetil 250 MG 1 tablet Orally Two times a day 0 10/08/2024 Next Appt Details Follow Up: via phone to repo rt test results, Reason: Progress Notes * RADHA COSME IIOB:1994 (30 yo M)Acc No.[id number]:10/08/2024 Progress Notes Patient: BERE ALBA II Provider: Hanny Caal M.D. :1995 A ge:29 Y S ex:Male Date:10/08/2024 Address:[address] [place] [address] [place], [id number] Subjective: * Chief Complaints: * 1 . Vomiting, diarrhea. * HPI: G astroenterology: Davy returns with continued intermittent nausea and vomiting. His last episode was yesterday. Stools remain loose but infrequent. No abdominal pain. No hematemesis or melena. Denies fever. E NT/respiratory: Since his last office visit, he has developed some cough and congestion. N eurology: He has been having more frequent headaches for the past several weeks. They typically occur around the left frontal and periorbital area and associated with some photophobia. Since his last visit, he tried 1 dose of the sumatriptan but had significant side effects. * ROS: D ERMATOLOGY: no R gómez. [...] Procedure: H ER-pain in left side 12/2012, [facility] ER-laceration right foot 09/26/2014. * Family History: F ather: 54 yrs, diabetes. M other: alive 63 yrs. S iblings: only child. * Social History: C URRENT TOBACCO USE S moking Status: Patient does NOT smoke. C affeine: yes, frequency: daily. Marital Status: Single. Past smoking status: no, Smoking status: Does not smoke. Recreational drug use: no. Alcohol: No. * Medications: N ot-Taking SUMAtriptan Succinate 100 MG Tablet 1 tablet as needed, may take second dose at least 2 hours after first dose up to 2 tablets per day as needed Orally Once a day , Medication List reviewed and reconciled with the patient * Allergies: N .K.D.A. Objective: * Vitals: W t: 163.8, Temp: 98.8, BP: 108/60, HR: 89, O2 Sat: 95% on RA, Nurse: tree, Ht: 73, BMI:21.61. Assessment: * Assessment: 1. A GE (acute gastroenteritis) - K52.9 (Primary) 2 . A cute URI - J06.9? 3. H eadache syndrome - G44.89 Plan: * Treatment: 2. A cute URI Start Cefuroxime Axetil Tablet, 250 MG, 1 tablet, Orally, Two times a day, 14. L AB: CBC Fingerstick (in house) (Collection Date & Time - 10/08/2024) Value Reference Range w bc 5.4 3.5 - 10 * l ym 19.5 15 - 50 * m id 5.4 2 - 15 * g ran 75.1 35 - 80 * r bc 4.60 3.5 - 5.5 * h gb 13.8 11.5 - 16.5 * h ct 41.5 35 - 55 * m cv 90.2 75 - 100 * m ch 29.9 25 - 35 * m chc 33.2 31 - 38 * p lat 178 100 - 400 3.?Headache syndrome?Imaging: CT Scan : Head w/o contrast (Performed Date - 10/20/2024)?Negative * Evelina Rodriguez 10/09/2024 08:5 1:31 AM >auth#[id number]; valid 10/09/2024 through 11/07/2024; CPT code 50010; faxed to [facility] Zeinab Ries 10/21/2024 12:35:47 PM >see TE * Procedure Codes: 9 4760 [place], [address] CBC WITH AUTO DIFF, 45383 CAPILLARY BLOOD DRAW, 3074F SYST BP LT 130 MM HG, 3078F DIAST BP < 80 MM HG * Follow Up: v ia phone to report test results * Images: Billing Information: * Visit Code: 00461 Office Visit, Est Pt., Level 4. * Procedure Codes: [address] [place]. [address] CBC WITH AUTO DIFF. 55062 CAPILLARY BLOOD DRAW. 3074F SYST BP LT 130 MM HG. 3078F DIAST BP < 80 MM HG. * Electronic signature of Hanny Caal MD on 06/16/2025 at 08:03 AM EST Sign off status: Pending * Provider: Hanny Caal M.D. Date: 0 10/08/2024 Generated for Rafiq cheung/Jose/eTransmitting on: 1 08/16/2024 08:03 AM EST
--- OUTSIDE RECORDS SUMMARY | 2024-10-16 10:45 | XMS_ITS ---
Author Organization [facility] Address [address] [facility] [address] [place] [id number] Care Team Providers Care Fisher Mussel Name Role Phone Hanny Caal Primary Care Provider Arya Cano Unavailable [phone] Allergies No Known Allergies Results Component Value Reference Range Notes CBC Fingerstick (in house) Reviewed date:10/16/2024 05:18:43 PM Interpretation: Performing Lab: Notes/Report: wbc 4.6 3.5 - 10 lym 40.5% 15 - 50 mid 6.9% 2 - 15 gran 52.6% 35 - 80 rbc 4.45 3.5 - 5.5 hgb 13.4 11.5 - 16.5 hct 39.8 35 - 55 mcv 89.3 75 - 100 mch 30.0 25 - 35 mchc 33.6 31 - 38 plat 205 100 - 400 REASON FOR VISIT respiratory issues Medications Medication SIG (Take, Route, Fr equency, Duration) Notes Start Date End Date Status Benzonatate 200 MG 1 capsule as needed Orally Three times a day 10/16/2024 Active Vital Signs Blood pressure systolic 110 mm Hg 10/17/19 25 Blood pressure diastolic 68 mm Hg 025 Heart Rate 86 /min 10/16/2024 Height 73 in 10/16/2024 Weight 158 lbs 10/16/2024 BMI 20.84 kg/m2 10/16/2024 Encounters Encounter Location Date Provider Diagnosis [facility] [address] [facility] [address] [place] [id number] 10/16/2024 Arya Cano Acute URI J06.9 and BMI 20.0-20.9, adult Z68.20 Assessments Encounter Date Diagnosis (ICD Code) Assessment Notes Treatment Notes Treatment Clinical Notes Section Notes 10/16/2024 Acute URI (ICD-10 - J06.9) 10/16/2024 BMI 20.0-20.9, adult (ICD-10 - Z68.20) Plan Of Treatment Medication Medication Name Sig Start Date Stop Date Notes Benzonatate 200 MG 1 capsule as needed Orally Three times a day 10/16/2024 Next Appt Details Follow Up: prn, Reason: Progress Notes * RADHA COSME IIOB:1994 (30 yo M)Acc No.[id number]:10/16/2024 Progress Notes Patient: BERE ALBA II Provider: Alysha Cano M.D. :1995 A ge:29 Y S ex:Male Date:10/16/2024 Address:[facility] [place] , [place], [id number] Pcp:Hanny Caal Subjective: * Chief Complaints: * 1 . Respiratory issues. * HPI: E NT/respiratory: 29 year old male presents with c/o cough P t complains of greenish yellow sputum production cough for 8 days. Pt states cough is worse if he is walking or moving around. Pt states there are times he coughs so much he get dizzy. * ROS: D ERMATOLOGY: no R gómez. n o H forest. G ASTROENTEROLOGY: no N ausea. n o V omiting. U ROLOGY: no D ifficulty urinating. n o B lood in urine. * Medical History: A llergies, Asthma, ADD. * Surgical History: H eart Ablation 2011, Cholecystectomy 04/26/2023. * Hospitalization/Major Diagno stic Procedure: H ER-pain in left side 12/2012, [facility] ER-laceration right foot 09/26/2014. * Family History: F ather: 54 yrs, diabetes. M other: alive 63 yrs. S iblings: only child. * Social History: C URRENT TOBACCO USE S moking Status: Patient does NOT smoke. C affeine: yes, frequency: daily. Marital Status: Single. Past smoking status: no, Smoking status: Does not smoke. Recreational drug use: no. Alcohol: No. * Medications: D iscontinued SUMAtriptan Succinate 100 MG Tablet 1 tablet as needed, may take second dose at least 2 hours after first dose up to 2 tablets per day as needed Orally Once a day , Discontinued Ondansetron HCl 4 MG Tablet 1 tablet Orally q6h orn , Discontinued Cefuroxime Axetil 250 MG Tablet 1 tablet Orally Two times a day , Medication List reviewed and reconciled with the patient * Allergies: N .K.D.A. Objective: * Vitals: W t:158, Temp:97.8, BP:110/68, HR:86, O2 Sat:97% on RA, Nurse:amari, Ht: 73, BMI:20.84. * Examination: E NT/Respiratory: General Appearance: N AD. E yes: P ERRLA, sclera clear. O ral cavity : erythema without exudate on pharynx. N arash : n o cervical lymphadenopathy. H eart : R RR, normal S1 S2. L ungs: c lear to auscultation bilaterally. Assessment: * Assessment: 1. A cute URI - J06.9 (Primary) 2 . B SC 20.0-20.9, adult - Z68.20 ? Plan: * Treatment: Value Reference Range w bc 4.6 3.5 - 10 * l ym 40.5% 15 - 50 * m id 6.9% 2 - 15 * g ran 52.6% 35 - 80 * r bc 4.45 3.5 - 5.5 * h gb 13.4 11.5 - 16.5 * h ct 39.8 35 - 55 * m cv 89.3 75 - 100 * m ch 30.0 25 - 35 * m chc 33.6 31 - 38 * p lat 205 100 - 400 * Bekah Shelby 10/16/2024 4:02:48 PM > , Provider reviewed results while patient in office. * Procedure Codes: 9 4760 [place], [address] CAPILLARY BLOOD DRAW, 89133 CBC WITH AUTO DIFF, 3074F SYST BP LT 130 MM HG, 3078F DIAST BP < 80 MM HG * Follow Up: p rn * Images: Billing Information: * Visit Code: 00303 Office Visit, Est Pt., Level 3. * Procedure Codes: [address] [place]. [address] CAPILLARY BLOOD DRAW. 74079 CBC WITH AUTO DIFF. 3074F SYST BP LT 130 MM HG. 3078F DIAST BP < 80 MM HG. * Electronic signature of Giselle Cano MD on 06/16/2025 at 08:03 AM EST Sign off status: Pending * Provider: Alysha Cano M.D. Date: 0 10/16/2024 Generated for Rafiq cheung/Jose/eTransmitting on: 1 08/16/2024 08:03 AM EST History and Physical Notes * HPI (History of Present Illness) Category Sub-Category Detail Notes Category Not es ENT/respiratory cough Pt complains of greenish yellow sputum production cough for 8 days. Pt states cough is worse if he is walking or moving around. Pt states there are times he coughs so much he get dizzy Examination Category Sub-Category Detail Notes Category Not es ENT/Respiratory Oral cavity : erythema without exudate on pharynx Neck : no cervical lymphade nopathy Heart : RRR, normal S1 S2 Lungs: clear to auscultatio n bilaterally General Appearance: NAD Eyes: PERRLA, sclera clear
--- OUTSIDE RECORDS SUMMARY | 2024-10-20 05:30 | XMS_ITS ---
Author Organization [facility] Address [address] [facility] [address] [place] [id number] Care Team Providers Care Vp Data Name Role Phone Hanny Caal Primary Care Provider Allergies No Known Allergies Results Component Value Reference Range Notes CXR Reviewed date:10/21/2024 10:23:19 AM Interpretation: Performing Lab: Notes/Report: REASON FOR VISIT chest pain, coughing, short of breath Medications Medication SIG (Take, Route, Fr equency, Duration) Notes Start Date End Date Status methylPREDNISolone 4 MG as directed Orally 025 Active Vital Signs Blood pressure systolic 110 mm Hg 10/21/19 25 Blood pressure diastolic 70 mm Hg 025 Heart Rate 75 /min 10/20/2024 Height 73 in 10/20/2024 Weight 165.8 lbs 10/20/2024 BMI 21.87 kg/m2 10/20/2024 Encounters Encounter Location Date Provider Diagnosis [facility] [address] [facility] [address] [place] [id number] 10/20/2024 Hanny Caal Pleurisy R09.1 and BMI 21.0-21.9, adult Z68.21 Assessments Encounter Date Diagnosis (ICD Code) Assessment Notes Treatment Notes Treatment Clinical Notes Section Notes 10/20/2024 Pleurisy (ICD-10 - R09.1) 10/20/2024 BMI 21.0-21.9, adult (ICD-10 - Z68.21) Plan Of Treatment Medication Medication Name Sig Start Date Stop Date Notes methylPREDNISolone 4 MG as directed Orally 10/20/2024 Next Appt Details Follow Up: via phone to repo rt test results, Reason: Progress Notes * RADHA HERNANDEZ IIOB:1994 (30 yo M)Acc No.[id number]:10/20/2024 Progress Notes Patient: BERE ALBA II Provider: Hanny Caal M.D. :1995 A ge:29 Y S ex:Male Date:10/20/2024 Address:[facility] [address] , [place], [id number] Subjective: * Chief Complaints: * 1 . Chest pain, coughing, short of breath. * HPI: E NT/respiratory: He returns for follow-up and reports that his cough is improving and less productive but has now developed some pleuritic type left sided chest pain and increased shortness of breath. No fever or hemoptysis. * ROS: D ERMATOLOGY: no R gómez. n o H forest. G ASTROENTEROLOGY: no N ausea. n o V omiting. U ROLOGY: no D ifficulty urinating. n o B lood in urine. * Medical History: A llergies, Asthma, ADD. * Surgical History: H eart Ablation 2011, Cholecystectomy 04/26/2023. * Hospitalization/Major Diagno stic Procedure: H ER-pain in left side 12/2012, [facility] ER-laceration right foot 09/26/2014. * Family History: [...] N .K.D.A. Objective: * Vitals: W t: 165.8, Temp: 98.7, BP: 110/70, HR: 75, O2 Sat: 97% on RA, Nurse: tree, Ht: 73, BMI:21.87. * Examination: E NT/Respiratory: General Appearance: N AD. Appears comfortable. N ose : n ormal, no lesions, nares patent. H eart : R RR, normal S1 S2, no murmurs. L ungs: c lear to auscultation bilaterally. Mild tenderness to palpation over left mid anterior chest wall. Assessment: * Assessment: 1. P leurisy - R09.1 (Primary) 2 . B AL 21.0-21.9, adult - Z68.21 ? Plan: * Treatment: * Procedure Codes: 9 4760 [place] * Follow Up: v ia phone to report test results * Images: Billing Information: * Visit Code: 95605 Office Visit, Est Pt., Level 3. * Procedure Codes: 89159 PULSE OX. * Electronic signature of Hanny Caal MD on 06/16/2025 at 08:02 AM EST Sign off status: Pending * Provider: Hanny Caal M.D. Date: 0 10/20/2024 Generated for Rafiq cheung/Jose/eTransmitting on: 08/16/2024 08:02 AM EST History and Physical Notes * Examination Category Sub-Category Detail Notes Category Not es ENT/Respiratory Heart : RRR, normal S1 S2, no mur murs Lungs: clear to auscultatio n bilaterally. Mild tenderness to palpation over left mid anterior chest wall General Appearance: NAD. Appears comfort able Nose : normal, no lesions, nares patent
--- OUTSIDE RECORDS SUMMARY | 2024-10-27 10:00 | XMS_ITS ---
Author Organization [facility] Address [address] [facility] [address] [place] [id number] Care Team Providers Care Dam Tender Assistant Name Role Phone Hanny Caal Primary Care Provider Allergies No Known Allergies Results Component Value Reference Range Notes Pulmonary Function Complete Reviewed date:11/11/2024 04:04:15 PM Interpretation: Performing Lab: Notes/Report: REASON FOR VISIT shortness of breath Medications Medication SIG (Take, Route, Frequency, Duration) Notes Start Date End Date Status Albuterol Sulfate HFA 108 (9 0 Base) MCG/ACT 2 puffs Inhalation Three times a day 10/27/2024 Active methylPREDNISolone 4 MG as directed Orally 025 Active Vital Signs Blood pressure systolic 110 mm Hg 10/28/19 25 Blood pressure diastolic 70 mm Hg 025 Heart Rate 93 /min 10/27/2024 Height 73 in 10/27/2024 Weight 160 lbs 10/27/2024 BMI 21.11 kg/m2 10/27/2024 Encounters Encounter Location Date Provider Diagnosis [facility] [address] [place] [id number] 10/27/2024 Hanny Caal Dyspnea R06.00 Assessments Encounter Date Diagnosis (ICD Code) Assessment Notes Treatment Notes Treatment Clinical Notes Section Notes 10/27/2024 Dyspnea (ICD-10 - R06.00) Etiology of his dyspnea is unclear. His pulmonary exam is normal and his recent chest x-ray is also normal. Will start albuterol MDI and arrange for pulmonary function studies. He will remain off work until PFT is completed. Plan Of Treatment Medication Medication Name Sig Start Date Stop Date Notes Albuterol Sulfate HFA 108 (9 0 Base) MCG/ACT 2 puffs Inhalation Three times a day 10/27/2024 Treatment Notes Assessment Notes Dyspnea Etiology of his dysp ernesto is unclear. His pulmonary exam is normal and his recent chest x-ray is also normal. Will start albuterol MDI and arrange for pulmonary function studies. He will remain off work until PFT is completed. Next Appt Details Follow Up: after tests, Reas on: Progress Notes * RADHA HERNANDEZ IIOB:1994 (30 yo M)Acc No.[id number]:10/27/2024 Progress Notes Patient: BERE ALBA II Provider: Hanny Caal M.D. :1995 A ge:29 Y S ex:Male Date:10/27/2024 Address:[address] [place] [address], [id number] Subjective: * Chief Complaints: * 1 . Shortness of breath. * HPI: E NT/respiratory: He returns with complaints of shortness of breath, mostly with exertion. No cough or pleuritic pain. He states while taking the steroids, his symptoms did improve but seem to recur soon after finishing the medication. 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 * ROS: D ERMATOLOGY: no R gómez. n o H forest. G ASTROENTEROLOGY: no N ausea. n o V omiting. U ROLOGY: no D ifficulty urinating. n o B lood in urine. * Medical History: A llergies, Asthma, ADD. * Surgical History: H eart Ablation 2011, Cholecystectomy 04/26/2023. * Hospitalization/Major Diagno stic Procedure: H ER-pain in left side 12/2012, [facility] ER-laceration right foot 09/26/2014. * Family History: F ather: 54 yrs, diabetes. M other: alive 63 yrs. S iblings: only child. * Social History: C URRENT TOBACCO USE S moking Status: Patient does NOT smoke. C affeine: yes, frequency: daily. Marital Status: Single. Past smoking status: no, Smoking status: Does not smoke. Recreational drug use: no. Alcohol: No. * Medications: T aking methylPREDNISolone 4 MG Tablet Therapy Pack as directed Orally , Medication List reviewed and reconciled with the patient * Allergies: N .K.D.A. Objective: * Vitals: W t: 160, Temp: 99.1, BP: 110/70, HR: 93, O2 Sat: 97% on RA, Nurse: [facility], Ht: 73, BMI:21.11. * Examination: E NT/Respiratory: General Appearance: N AD. E yes: P ERRLA, sclera clear. E ars: a uditory canals normal bilaterally, TM's WNL. N ose : n ormal, no lesions, nares patent. O ral cavity : n o erythema or exudate seen on pharynx. N arash : n o cervical lymphadenopathy. H eart : R RR, normal S1 S2, no murmurs. L ungs: c lear to auscultation bilaterally. Assessment: * Assessment: 1. D yspnea - R06.00 (Primary) Plan: * Treatment: Notes: Etiology of his dyspnea is unclear. His pulmonary exam is normal and his recent chest x-ray is also normal. Will start albuterol MDI and arrange for pulmonary function studies. He will remain off work until PFT is completed.?? * Procedure Codes: 9 4760 [address]ULSE OX * Follow Up: a fter tests * Images: Billing Information: * Visit Code: 31487 Office Visit, Est Pt., Level 3. * Procedure Codes: 58227 PULSE OX. * Electronic signature of Hanny Caal MD on 06/16/2025 at 08:02 AM EST Sign off status: Pending * Provider: Hanny Caal M.D. Date: 0 10/27/2024 Generated for Rafiq cheung/Jose/Grace on: 08/16/2024 08:02 AM EST History and Physical Notes * Examination Category Sub-Category Detail Notes Category Not es ENT/Respiratory Oral cavity : no erythema or exudate s een on pharynx Ears: auditory canals norm al bilaterally, TM's WNL Neck : no cervical lymphade nopathy Heart : RRR, normal S1 S2, n o murmurs Lungs: clear to auscultatio n bilaterally General Appearance: NAD Nose : normal, no lesions, nares patent Eyes: PERRLA, sclera clear
--- OUTSIDE RECORDS SUMMARY | 2024-10-30 11:15 | XMS_ITS ---
Author Organization [facility] Address 1210 [facility] [address] [place] [phone] Care Team Providers Care Reservoir Engineering Advisor Name Role Phone Hanny Caal Primary Care Provider Arya Cano [phone] REASON FOR VISIT Tdap Medications Medication SIG (Take, Route, Frequency, Duration) Notes Start Date End Date Status methylPREDNISolone 4 MG as directed Orally 025 Active Albuterol Sulfate HFA 108 (9 0 Base) MCG/ACT 2 puffs Inhalation Three times a day 10/27/2024 Active Immunizations Vaccine Route Administration Date Status Comme nts Tetanus Tdap-Adacel (over 7yrs) IM Intramuscular 10/30/2024 Administered Encounters Encounter Location Date Provider Diagnosis [facility] 1210 [facility] [address] [place] [phone] 10/30/2024 Arya Cano Encounter for immunization Z23 Assessments Encounter Date Diagnosis (ICD Code) Assessment Notes Treatment Notes Treatment Clinical Notes Section Notes 10/30/2024 Encounter for immunization (ICD-10 - Z23) Plan Of Treatment No Information Progress Notes * HERNANDEZ EDEL MINDIAMMONOB:1994 (30 yo M)Acc No.[id number]:10/30/2024 Progress Notes Patient: BERE ALBA II Provider: Alysha Cano M.D. :1995 A ge:29 Y S ex:Male Date:10/30/2024 Address:[address] [place], [id number] Pcp:Hanny Caal Subjective: * Chief Complaints: * 1 . Tdap. * Medical History: * Medications: T aking methylPREDNISolone 4 MG Tablet Therapy Pack as directed Orally , Taking Albuterol Sulfate HFA 108 (90 Base) MCG/ACT Aerosol Solution 2 puffs Inhalation Three times a day , Medication List reviewed and reconciled with the patient Objective: * Vitals: Assessment: * Assessment: 1. E ncounter for immunization - Z23 (Primary) Plan: * Treatment: * Immunizations: Tetanus Tdap-Adacel (over 7yrs) : 0.5 mL (Route: Intramuscular) given by Bekah Shelby on Left Deltoid (Encounter for immunization) * Images: Billing Information: * Visit Code: * Procedure Codes: * Electronic signature of Giselle Cano MD on 06/16/2025 at 08:02 AM EST Sign off status: Pending * Provider: Alysha Cano M.D. Date: 0 10/30/2024 Generated for Rafiq cheung/Jose/Jacquelinesmitting on: 08/16/2024 08:02 AM EST
--- OUTSIDE RECORDS SUMMARY | 2024-11-12 10:45 | XMS_ITS ---
Author [facility] 36 [facility] [address] [place] [phone] Care Team Providers Care Movie Stunt Performer Name Role Phone Hanny Caal Primary Care Provider Allergies No Known Allergies Reason For Referral Reason Dr. Sood Diagnosis 1 Palpitations (R00.2) Referral [facility] Referring Provider First Name Hanny Blackwell Referring Provider Last Name Ten Referring Provider Speciality Family Pra ctice Referred Provider Cardiology, . Referred Provider Specialty Cardiovascul ar Disease General Notes Evelina Rodriguez 2024 03:21:40 PM > Dr. Sood is the patients choice for a manager field investigations; faxed to [phone] Referral Priority Routine REASON FOR VISIT Discuss Test Results Medications Medication SIG (Take, Route, Frequency, Duration) Notes Start Date End Date Status methylPREDNISolone 4 MG as directed Orally 025 Active Albuterol Sulfate HFA 108 (9 0 Base) MCG/ACT 2 puffs Inhalation Three times a day 10/27/2024 Active Vital Signs Blood pressure systolic 90 mm Hg 11/13/19 25 Blood pressure diastolic 60 mm Hg 025 Heart Rate 76 /min 11/12/2024 Height 73 in 11/12/2024 Weight 160.2 lbs 11/12/2024 BMI 21.13 kg/m2 11/12/2024 Encounters Encounter Location Date Provider Diagnosis [facility] [address] [facility] [address] [place] [phone] 11/12/2024 Hanny Caal Palpitations R00.2 a nd Dyspnea on exertion R06.09 Assessments Encounter Date Diagnosis (ICD Code) Assessment Notes Treatment Notes Treatment Clinical Notes Section Notes 11/12/2024 Palpitations (ICD-10 - R00.2) 11/12/2024 Dyspnea on exertion (ICD-10 - R06.09) Pulmonary workup for evaluation of his dyspnea including chest x-ray and pulmonary function studies have been nonrevealing. Will make referral to cardiology to rule out possible dysrhythmia or other etiologies. Plan Of Treatment Treatment Notes Assessment Notes Dyspnea on exertion Pulmonary workup for evaluation of his dyspnea including chest x-ray and pulmonary function studies have been nonrevealing. Will make referral to cardiology to rule out possible dysrhythmia or other etiologies. Referrals Referral Date Details 11/12/2024 11/12/2024, Dr. Antoinette willoughby , . Cardiology Next Appt Details Follow Up: after consultatio n, Reason: Progress Notes * RADHA HERNANDEZ IIOB:1994 (30 yo M)Acc No.[id number]:11/12/2024 Progress Notes Patient: BERE ALBA II Provider: Hanyn Caal M.D. :1995 A ge:29 Y S ex:Male Date:11/12/2024 Address:[facility] [place], [id number] Subjective: * Chief Complaints: * 1 . Discuss Test Results. * HPI: E NT/respiratory: He returns today for follow-up on his dyspnea and to review his recent lung function studies. He continues to report episodes of dyspnea on exertion. No pleuritic pain, congestion, or fever. He does have a morning cough. He continues to vape but is tapering his use. C ardiology: He has a history of cardiac ablation procedure presumably for SVT. I do not have records to confirm this. He still reports occasional episodes of palpitations but cannot correlate them directly with his symptoms of dyspnea. No exertional chest pain. * ROS: D ERMATOLOGY: no R gómez. n o H forest. G ASTROENTEROLOGY: no N ausea. n o V omiting. U ROLOGY: no D ifficulty urinating. n o B lood in urine. * Medical History: A llergies, Asthma, ADD. * Surgical History: H eart Ablation 2011, Cholecystectomy 04/26/2023. * Hospitalization/Major Diagno stic Procedure: H ER-pain in left side 12/2012, [facility] ER-laceration right foot 09/26/2014. * Family [...] N .K.D.A. Objective: * Vitals: W t: 160.2, Temp: 98.4, BP: 90/60, HR: 76, Nurse: [facility], Ht: 73, BMI:21.13. * Examination: G eneral Examination: General Appearance: N AD. H eart: R SR. L ungs:?clear to auscultation. * Physical Examination: L david function studies reviewed with patient and are essentially normal. Please refer to copy in chart. Assessment: * Assessment: 1. P alpitations - R00.2 (Primary) 2 . D yspnea on exertion - R06.09 ? Plan: * Treatment: 2. D yspnea on exertion Notes: Pulmonary workup for evaluation of his dyspnea including chest x-ray and pulmonary function studies have been nonrevealing. Will make referral to cardiology to rule out possible dysrhythmia or other etiologies. * Follow Up: a fter consultation * Images: Billing Information: * Visit Code: 20930 Office Visit, Est Pt., Level 3. * Procedure Codes: * Electronic signature of Hanny Caal MD on 06/16/2025 at 08:03 AM EST Sign off status: Pending * Provider: Hanny Caal M.D. Date: 0 11/12/2024 Generated for Rafiq cheung/Jose/Jacquelinesmitting on: 1 08/16/2024 08:03 AM EST History and Physical Notes * Physical Examination Category Sub-Category Detail Notes Section Note s Lung function s tudies reviewed with patient and are essentially normal. Please refer to copy in chart Examination Category Sub-Category Detail Notes Category Not es General Examination Heart: RSR Lungs: clear to auscultatio n General Appearance: NAD Consultation Request Notes Referral Date Referring Provider Referred Provider Not es 11/12/2024 Hanny Caal Cardiology, . Dr. Faheem schrader
--- OUTSIDE RECORDS SUMMARY | 2024-12-10 09:45 | XMS_ITS ---
Author Organization [facility] Address 1210 [facility] [address] [place] [phone] Care Team Providers Care Clinical Product Specialist Name Role Phone Hanny Caal Primary Care Provider Allergies No Known Allergies REASON FOR VISIT Follow Up from Cardiology Medications Medication SIG (Take, Route, Frequency, Duration) Notes Start Date End Date Status Albuterol Sulfate HFA 108 (9 0 Base) MCG/ACT 2 puffs Inhalation Three times a day 10/27/2024 Active methylPREDNISolone 4 MG as directed Orally 025 Active Problems Problem Type SNOMED Code ICD Code Onset Dates Problem Status W/U Status Risk Notes Problem Hyperthyroidism (46626361) Hyperthyroidism (E05.90) Active confirmed Vital Signs Blood pressure systolic 100 mm Hg 12/11/19 25 Blood pressure diastolic 68 mm Hg 025 Heart Rate 80 /min 12/10/2024 Height 73 in 12/10/2024 Weight 164.6 lbs 12/10/2024 BMI 21.71 kg/m2 12/10/2024 Encounters Encounter Location Date Provider Diagnosis [facility] [address] [place] [phone] 12/10/2024 Hanny Caal Hyperthyroidism E05. 90 and Dyspnea on exertion R06.09 Assessments Encounter Date Diagnosis (ICD Code) Assessment Notes Treatment Notes Treatment Clinical Notes Section Notes 12/10/2024 Hyperthyroidism (ICD-10 - E05.90) Check labs to rule out hyperthyroidis m. May need thyroid imaging. 12/10/2024 Dyspnea on exertion (ICD-10 - R06.09) Keep follow-up appoint with cardiology Plan Of Treatment Treatment Notes Assessment Notes Hyperthyroidism Check labs to rule o ut hyperthyroidism. May need thyroid imaging. Dyspnea on exertion Keep follow-up appoi nt with cardiology Pending Test Test Name Order Date U-G-Kyeypefk Protein (CRP) 12/10/2024 P-Total T3 12/10/2024 P-T4 (Thyroxine) 12/10/2024 P-Thyroglobulin, Serum 12/10/2024 P-TSH 12/10/2024 Next Appt Details Follow Up: via phone to repo rt test results, Reason: Progress Notes * RADHA HERNANDEZ IIOB:1994 (30 yo M)Acc No.[id number]:12/10/2024 Progress Notes Patient: BERE ALBA II Provider: Hanny Caal M.D. :1995 A ge:29 Y S ex:Male Date:12/10/2024 Address:[address] [place] [id number] Subjective: * Chief Complaints: * 1 . Follow Up from Cardiology. * HPI: H PI: He returns for follow-up with ongoing symptoms of dyspnea particularly with exertion. He has been seen by cardiology and is awaiting results of echocardiogram and Holter monitor. He had blood work which is available showing a depressed TSH with a low normal T4. * ROS: D ERMATOLOGY: no R gómez. n o H forest. G ASTROENTEROLOGY: no N ausea. n o V omiting. U ROLOGY: no D ifficulty urinating. n o B lood in urine. * Medical History: A llergies, Asthma, ADD. * Surgical History: H eart Ablation 2011, Cholecystectomy 04/26/2023. * Hospitalization/Major Diagno stic Procedure: H ER-pain in left side 12/2012, [facility] ER-laceration right foot 09/26/2014. * Family History: [...] N .K.D.A. Objective: * Vitals: W t: 164.6, Temp: 98.6, BP: 100/68, HR: 80, Nurse: [facility], Ht: 73, BMI:21.71. * Examination: G eneral Examination: General Appearance: N AD. N arash: S upple, no thyromegaly. H eart: R SR. L ungs: c lear to auscultation. Assessment: * Assessment: 1. H yperthyroidism - E05.90 (Primary) 2 . D yspnea on exertion - R06.09? Plan: * Treatment: 2. D yspnea on exertion L AB: V-J-Ndoolhbr Protein (CRP) Notes: Keep follow-up appoint with cardiology * Follow Up: v ia phone to report test results * Images: Billing Information: * Visit Code: 41651 Office Visit, Est Pt., Level 3. * Procedure Codes: * Electronic signature of Hanny Caal MD on 06/16/2025 at 08:03 AM EST Sign off status: Pending * Provider: Hanny Caal M.D. Date: 0 12/10/2024 Generated for Rafiq cheung/Jose/Jacquelinesmitting on: 08/16/2024 08:03 AM EST History and Physical Notes * Examination Category Sub-Category Detail Notes Category Not es General Examination Heart: RSR Lungs: clear to auscultatio n General Appearance: NAD Neck: Supple, no thyromega ly
--- OUTSIDE RECORDS SUMMARY | 2025-06-16 08:02 | XMS_ITS | Clinical Summary ---
Author Organization Healthcare Address [address] [place] [address] Care Team Providers Care Field Technician Name Role Phone Unavailable Primary Care [...] (1 - 3-dose SCD M series) 2022 [id number] Vaccine (1 - 20 25-26 season) 2025 [...]
--- OUTSIDE RECORDS SUMMARY | 2025-06-16 08:02 | XMS_ITS | Patient Health Record ---
[facility] [address] [place] [id number] Care Team Providers Care High Lighter Name Role Phone Hanny Caal Primary Care Provider Arya Cano Unavailable [phone] Allergies No Known Allergies Results Component Value Reference Range Notes H-T4 (Thyroxine) Reviewed date:12/27/2024 08:51:33 PM Interpretation: Performing Lab: Notes/Report: T4 8.5 5.53-11.0 ug/dl P-Phosphorus Reviewed date:07/02/2024 10:31:48 AM Interpretation: Normal Performing Lab: Notes/Report: Test performed by [facility] [address] [place], [place] [address] [place] , [place] [address] Rodrick Castro MD, Gage Maker CLIA: [id number] Phosphorus 2.6 2.5-4.5 mg/dL P-TSH reflex to FT4 Reviewed date:07/02/2024 10:31:48 AM Interpretation: Normal Performing Lab: Notes/Report: Test performed by [facility] [address] [place] [address] Rashi [address]on [address], [place] [address] Rodrick Castro MD, Gage Maker CLIA: [id number] TSH reflex to FT4 0.45 0.43-5.25 mU/L P-Magnesium Reviewed date:07/02/2024 10:31:48 AM Interpretation: Normal Performing Lab: Notes/Report: Test performed by [facility] [address] [place] [address] Dr[address], [place] [address] Rodrick Castro MD, Gage Maker CLIA: [id number] Magnesium 2.3 1.6-2.4 mg/dL P-Lipase Reviewed date:07/02/2024 10:31:48 AM Interpretation: Normal Performing Lab: Notes/Report: Test performed by [facility] , [address], [place] [address] Rodrick Castro MD, Gage Maker CLIA: [id number] Lipase 33.0 13.0-60.0 u/L P-Comprehensive Metabolic Pa francine (CMP) Reviewed date:07/02/2024 10:31:48 AM Interpretation:alt 112, ast 58 Performing Lab: Notes/Report: Test performed by [facility] [address] , [address], [place] [address] Rodrick Castro MD, Gage Maker CLIA: [id number] Sodium 141 135-145 mmol/L Potassium 4.7 3.5-5.3 [...] Normal Performing Lab: Notes/Report: Test performed by [facility] [address] , [place] [address] Rodrick Castro MD, Gage Maker CLIA: [id number] Amylase 55 28-100 U/L CBC Fingerstick (in [...] - 38 plat 200 100 - 400 H-CRP Reviewed date:12/27/2024 08:51:33 PM Interpretation: Performing Lab: Notes/Report: CRP 1.9 0-4 mg/L H-TSH Reviewed date:12/27/2024 08:51:33 PM Interpretation: Performing Lab: Notes/Report: TSH 0.91 0.465-4.68 uIU/mL H-T3 Total Reviewed date:12/27/2024 08:51:33 PM Interpretation: Performing Lab: Notes/Report: T3T 143 71-180 ng/dL Performed at: [facility] [id number] Electronic Funds Transfer Coordinator: Jeremie Holguin PhD, Phone: [phone] THYRO Reviewed date:12/27/2024 08:51:33 PM Interpretation: Performing Lab: Notes/Report: THYRO <1.0 0.0-0.9 IU/mL Thyroglobulin Antibody measured by [employer] Methodology It should be noted that the presence of thyroglobulin antibodies may not be pathogenic nor diagnostic, especially at very low levels. The assay resp therapist has found that four percent of individuals without evidence of thyroid disease or autoimmunity will have positive TgAb levels up to 4 IU/mL. Performed at: [address] [id number] Electronic Funds Transfer Coordinator: Jeremie Holguin PhD, Phone: [phone] [facility] Reviewed date:06/25/2024 09:50:30 AM Interpretation: Performing Lab: Notes/Report: CXR Reviewed date:10/21/2024 10:23:19 AM Interpretation: Performing Lab: Notes/Report: CBC Fingerstick (in house) Reviewed date:10/16/2024 11:36:50 [...] Notes/Report: Negative CBC Fingerstick (in house) Reviewed date:10/05/2024 04:33:36 [...] - 38 plat 172 100 - 400 Pulmonary Function Complete Reviewed date:11/11/2024 04:04:15 PM Interpretation: Performing Lab: Notes/Report: CBC Fingerstick (in house) Reviewed date:06/26/2024 03:45:13 [...] - 38 plat 205 100 - 400 Medications Medication SIG (Take, [...] Status Risk Notes Problem Seasonal allergic rhinitis (409527656) Seasonal allergic rhinitis (477.9) Active confirmed Problem Scoliosis (988184544) Scoliosis NOS (737.43) Active confirmed Problem Palpitations (27546608) Palpitations (R00.2) Active confirmed Problem Hyperthyroidism (33076200) Hyperthyroidism (E05.90) Active confirmed Problem Headache (27605411) Headache syndrome (G44.89) Active confirmed Problem Attention deficit hyperactivity disorder, predominantly inattentive type (36075467) ADHD (attention deficit hyperactivity disorder), inattentive type (F90.0) Active confirmed Problem Chronic low back pain (finding) (949745746) Chronic midline low back pain without sciatica (M54.5) Active confirmed Vital Signs Heart Rate 80 /min 12/10/2024 Blood pressure diastolic 68 mm Hg 12/10/2024 Height 73 in 12/10/2024 Blood pressure systolic 100 mm Hg 12/10/2024 Weight 164.6 lbs 12/10/2024 BMI 21.71 kg/m2 12/10/2024 Encounters Encounter Location Date Provider Diagnosis [facility] [address] [place], [place] [id number] 06/26/2024 Arya Meridale Gastroenteritis K52. 9 [facility] [address] [place], [place] [id number] 07/01/2024 Arya Meridale Diarrhea, unspecifie d type R19.7 and Dizziness R42 [facility] [address] [place], [place] [id number] 10/05/2024 Arya Meridale Gastroenteritis K52. 9 and Frequent headaches R51.9 [facility] [address] [facility] [address] [place], [place] [id number] 10/08/2024 R Rishi Ten AGE (acute gastroenteritis) K52.9 ; Acute URI J06.9 and Headache syndrome G44.89 [facility] [address] [place], [place] [id number] 10/16/2024 Arya Meridale Acute URI J06.9 and BMI 20.0-20.9, adult Z68.20 [facility] [address] [place], [place] [id number] 10/20/2024 R Rishi Ten Pleurisy R09.1 and B MT 21.0-21.9, adult Z68.21 [facility] [address] [place], [place] [id number] 10/27/2024 R Rishi Ten Dyspnea R06.00 [facility] [address] [place], [place] [id number] 10/30/2024 Arya Meridale Encounter for immunization Z23 [facility] [address] [place], [place] [id number] 11/12/2024 R Rishi Ten Palpitations R00.2 a nd Dyspnea on exertion R06.09 [facility] [address] [place], [place] [id number] 12/10/2024 R Rishi Ten Hyperthyroidism E05. 90 and Dyspnea on exertion R06.09 [facility] [address] [place], [place] [id number] 07/02/2024 Arya Meridale [facility] [address] [place] [id number] 07/06/2024 Arya Meridale [facility] [address] [place] [id number] 10/12/2024 R Rishi Ten [facility] [address] [place] [id number] 10/20/2024 R Rishi Ten [facility] [address] [place] [id number] 10/21/2024 R Rishi Quirost [facility] [address] [place], [place] [id number] 11/06/2024 R Rishi Quirost [facility] [address] [place], [place] [id number] 11/07/2024 R Rishi Garciaeet [facility] [address] [place], [place] [id number] 12/27/2024 R Rishi Garciaeet [facility] [address] [place], [place] [id number] 01/04/2025 R Rishi Garciaeet Assessments Encounter Date Diagnosis (ICD Code) Assessment Notes Treatment Notes Treatment Clinical Notes Section Notes 06/26/2024 Gastroenteritis (ICD-10 - K52.9) 07/01/2024 Diarrhea, unspecified type (ICD-10 - R19.7) 07/01/2024 Dizziness (ICD-10 - R42) 10/05/2024 Gastroenteritis (ICD-10 - K52.9) fluids, rest, supportive measures, dehydration precautions discussed 10/05/2024 Frequent headaches (ICD-10 - R51.9) 10/08/2024 AGE (acute gastroenteritis) (ICD-10 - K52.9) 10/08/2024 Acute URI (ICD-10 - J06.9) 10/16/2024 Acute URI (ICD-10 - J06.9) 10/20/2024 Pleurisy (ICD-10 - R09.1) 10/16/2024 BMI 20.0-20.9, adult (ICD-10 - Z68.20) 10/20/2024 BMI 21.0-21.9, adult (ICD-10 - Z68.21) 10/27/2024 Dyspnea (ICD-10 - R06.00) Etiology of his dyspnea is unclear. His pulmonary exam is normal and his recent chest x-ray is also normal. Will start albuterol MDI and arrange for pulmonary function studies. He will remain off work until PFT is completed. 10/30/2024 Encounter for immunization (ICD-10 - Z23) [...] out hyperthyroidism . May need thyroid imaging. 12/10/2024 Dyspnea on exertion (ICD-10 - R06.09) Keep follow-up appoint with cardiology 10/08/2024 Headache syndrome (ICD-10 - G44.89) Plan Of Treatment Pending Test Test Name Order Date V-Y-Rirgyqre Protein (CRP) 12/10/2024 P-Total T3 12/10/2024 P-T4 (Thyroxine) 12/10/2024 P-Thyroglobulin, Serum 12/10/2024 P-TSH 12/10/2024 TEN-stool panel 07/01/2024 Insurance Providers Payer Name Payer Address Payer Phone Subscriber Number Group Number Insured Name Patient Relationship to Insured Coverage Start Date Coverage End Date [facility] [address] [place] [id number] BERE COSME II Self - patient is the insured Medications Administered Medication Instructions Date of Administration Dosage Notes allergy 01/09/2006 0.1 allergy 12/18/2005 .o5 allergy 11/13/2005 allergy 10/25/2005 0.1 allergy 09/18/2005 .10CC allergy 09/11/2005 0.5 mL allergy 09/04/2005 0.5 mL allergy 08/07/2005 0.25 allergy 07/31/2005 0.1 mL allergy 07/25/2005 0.10 allergy 06/27/2005 allergy 06/18/2005 0.5 mL allergy 06/07/2005 0.15 mL allergy 05/22/2005 0.5 mL allergy 04/24/2005 0.1 mL allergy 04/17/2005 .15 allergy 04/10/2005 0.10 mL allergy 03/19/2005 0.25 mL allergy 03/13/2005 0.10 mL allergy 03/06/2005 0.5 mL allergy 02/20/2005 0.5 mL allergy 02/06/2005 0.5 mL allergy 01/30/2005 0.5 mL allergy 01/19/2005 0.5 mL wkly allergy i nj given Medical (General) History Medical History History ICD Code Allergies Asthma ADD Surgical History Surgery Date(Month/Year) Heart Ablation 2011 Cholecystectomy 04/26/2023 Hospitalization History Reason Date(Month/Year) [facility] ER-laceration right foot 09/26/2014 [facility] ER-pain in left side 12/2012
--- OUTSIDE RECORDS SUMMARY | 2025-06-16 08:03 | XMS_ITS | Data Portability ---
Author Organization [facility] RADHA Santiago [place] [facility] Address [address] [place] [address] Assessment No assessment recorded. Plan of Treatment [...] By Organization Details Last Modified Time 03/13/2019 [id number] eating healthy foods: care instructions [id number] Not available 01/25/2022 03:49:04 Reason for Referral None Reported. Problems Name Problem SNOMED Code Status Onset Date Resolution Date Notes Provider Name and Address Organization Details Recorded Time Low back pain 959005812 Active 016 From Automated Load;Provi jac: Robert Houston; atus: Active Not Available [facility] 03:[facility]03 Problem Notes None recorded. 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 Information not available 03/13/2019 Mental Status None [...] Diagnosis SNOMED-CT Code Diagnosis ICD10 Code Diagnosis IMO Codes Diagnosis Note [id number] EMA KAM MD [facility] [address] [place] [id number] 03/13/2019 09:19:20 03/13/2019 10:28:27 Ganglion cyst of the right dorsal wrist [id number] M67.431 He states that It has gotten [...] ID Guarantor Name 06/15/2020 1 [place] [id number] Aundrea Cosme [id number] Dread Cosme Notes Date Note Type Note Provider Name and Address Organization Details Recorded Time 03/13/2019 text/html Hand SurgeryRepo rted by PatientHPIFor hand dominance, patient reportsright. For location, patient reportsright. For severity, patient reportspain level 6/10(after working all day). For duration, patient reportsdate of injury: 0. For previous surgery, patient reportsnone. For work related, patient reportsno. 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
--- OUTSIDE RECORDS SUMMARY | 2025-06-16 08:03 | XMS_ITS | Clinical Summary ---
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
--- OUTSIDE RECORDS SUMMARY | 2025-06-16 08:04 | XMS_ITS | Clinical Summary ---
Author Organization [facility] Address [address] [facility] [address] [place] [address] Phone Care Team Providers Care Nursing Staff Development Coordinator Name Role Phone Unavailable Primary Care Provider [...]
--- NOTE | 2025-06-16 08:21 | HMH.ITSTN ---
This press writer took the pt down to the ER for further evaluation with 's suggestion due to pt slurring speech and general weakness. Pt is now registered in ER and in rm 5. This press writer notified provider of the events that led up to this
[2025-06-16] MEDS: IOPAMIDOL-370 (76%);100ML BOTTLE 85 ML IV (08:23)
[2025-06-16] MEDS: SODIUM CHLORIDE 0.9% 10ML SYR (RAD ONLY) 10 ML IV (08:23)
[2025-06-16] MEDS: 0.9 % SODIUM CHLORIDE 50 ML VIAL IV (08:23)
--- NOTE | 2025-06-16 08:30 | CT_ITS ---
FINAL REPORT TECHNIQUE: Axial imaging of the chest is obtained after the administration of contrast. 3-D MIP reformatted images were also obtained and reviewed per PE protocol. CLINICAL HISTORY: SOB/HYpoxia COMPARISON: None FINDINGS: The pulmonary arteries are well filled. There is no evidence of pulmonary embolus. There is no aortic dissection. Heart size is normal. There is no thoracic lymphadenopathy. There is evidence of prior granulomatous disease. The lungs are otherwise clear. There is no pleural or pericardial effusion. Limited evaluation of the upper abdomen is without acute abnormality. No acute osseous abnormality. IMPRESSION: No evidence of pulmonary embolism or aortic dissection. Reviewed, Interpreted and Dictated by Bethany Glynn MD Transcribed by Machelle Zaman Authenticated and [facility]
== END 2025-06-16 23:59 | disposition home or self-care (01) ==
LOC: RAD 07:58
PROVIDERS: PCP Family Medicine; Visit Provider Internal Medicine Pulmonary Disease
DX: R07.9 Chest pain, unspecified (principal); R79.89 Other specified abnormal findings of blood chemistry; R06.02 Shortness of breath; R09.02 Hypoxemia
CPT/HCPCS: 71275; Q9967